=== PATIENT | female | born 1935 | race Caucasian/White ===

== ENCOUNTER 2017-05-06 12:10 | Emergency (ER) | payer MEDICARE, OTHER, SELFPAY ==
[2017-05-06 12:11] VITALS: BP 180/76; PULSE 65; RESP 18; TEMP 36.6; O2SAT 97; BMI 25.7
--- NOTE | 2017-05-06 12:22 | VDLE_ITS ---
Reason For Study: LEG PAIN RIGHT LEFT CFV is compressible, spontaneous, phasic, GSV is normal. competent and demonstrates normal CFV is compressible, spontaneous, phasic, augmentation. competent, and demonstrates normal Procedure augmentation. Exam performed portable in ED. FV is compressible, spontaneous, phasic, VDU ordered bassam - pt refused asymptomatic competent and demonstrates normal leg. augmentation. A preliminary report was called and/or faxed POP V is compressible, spontaneous, phasic, to Dr. Arango. competent and demonstrates normal augmentation. T/P Trunk is compressible. PTV is compressible. LT PerV is compressible. Interpretation Summary There is no evidence of left lower extremity deep vein thrombosis. Left greater saphenous vein appears patent and compressible segmentally. Normal flow patterns right common femoral vein. Ordering Physician: Adalid Arango Referring Physician: Chris Fournier Performed By: Deepa Moncada RVT
--- NOTE | 2017-05-06 12:23 | ED.VISSUMM ---
- ER Visit Summary Date of Service: 05/06/17 Chief Complaint: [] Left medial leg pain resolved History of Present Illness: The patient is a 81 F [], history of heart disease on Plavix history of superficial thrombophlebitis involving her left lower leg she woke this morning with the usual health completely stable and normal then she began having a pain to her left lower leg she called her daughter the daughter came over by 10 the daughter got to the house the symptoms are totally resolved the patient was completely back to her baseline, the daughter then called the doctor's office who told her to go to the urgent care, she went to the urgent care, and then she was directed come to the emergency department for possible duplex scan, the patient's symptoms are totally resolved she points to the left medial calf area of some very mild discomfort that is resolved this area does have some very prominent superficial veins there is no cores is no swelling there is no warmth she has no other complaints with the patient did not wish to come to the hospital except based on the instructions of her physicians Physical Examination: [] Neck chest exam unremarkable the abdomen soft nontender her lower extremity exam is really unremarkable she has prominent lower extremity veins there is no cords are palpable the calf is very soft she is having absolutely no pain she has full range of motion of her hip her knee or ankle her foot there is a palpable faint pulse dorsalis pedis her foot is well-perfused and pink cap refill is about 2 seconds she able to stand and walk to her baseline she has [place] no complaints right now Test Results: [] Emergency Department Course and Treatment: [] Given all the above the family is concerned about a superficial thrombophlebitis, she has no history of DVT PE her health has been very stable she lives alone at home given all the above duplex scan is ordered Scan bilateral was ordered, the patient refused the right scan, the left duplex scan shows no DVT per staff report or superficial abnormalities either All the above patient her daughter at this time a couple discharge home to follow-up with family doctor continue to walk warm compress and return for change in symptoms Treatment Plan: [] Disposition: [] Impression: [] Left medial calf pain etiology unclear resolved This note was generated with [employer] software. It may contain incorrect words, spelling, and punctuation that were not noted in review of the chart prior to signing ED Disposition - Plan for ED Patient: Chief Complaint: Lower Extremity Injury Referrals: Chris Fournier DO [Primary Care Provider] -
--- NOTE | 2017-05-06 12:52 | ED.DEP ---
ED Disposition - Plan for ED Patient: Chief Complaint: Lower Extremity Injury Instructions: ED Contusion Lower Ext Referrals: Chris Fournier DO [Primary Care Provider] -
[2017-05-06 13:20] VITALS: PULSE 62; RESP 16
== END 2017-05-06 13:21 | disposition home or self-care (01) ==
LOC: ED 12:26
PROVIDERS: Emergency Provider Emergency Medicine; Family Provider Student in an Organized Health Care Education/Training Program; PCP Student in an Organized Health Care Education/Training Program
DX: M79.662 Pain in left lower leg (principal); I25.10 Atherosclerotic heart disease of native coronary artery without angina pectoris; I10 Essential (primary) hypertension; Z86.72 Personal history of thrombophlebitis; Z79.01 Long term (current) use of anticoagulants; Z79.899 Other long term (current) drug therapy
CPT/HCPCS: 93970; 93971; 99282

== ENCOUNTER 2018-03-20 15:33 | Inpatient (IN) | payer MEDICARE, OTHER, SELFPAY ==
[2018-03-20] VITALS (29 sets, daily range): BP systolic 132–192; BP diastolic 64–134; PULSE 71–88; RESP 13–26; TEMP 36.4–36.7; O2SAT 94–100; BMI 26.7; BMI 25.8; BMI 25.7
--- NOTE | 2018-03-20 15:47 | CT_ITS ---
STUDY: CTA CHEST REASON FOR EXAM: Female, 82 years old. Chest pain RADIATION DOSAGE (If Supplied By Facility): CTDIvol = ( 14.32 ) mGy, DLP = ( 613.57 ) mGycm TECHNIQUE: The examination was performed with the intravenous administration of 75 ml of Isovue 370 contrast material. Post-processing of the angiographic images was performed, with multiplanar reformation and 3D reconstruction. Individualized dose optimization techniques were used for this CT. COMPARISON: None. FINDINGS: Normal enhancement of the main pulmonary artery and right and left pulmonary arteries. Normal enhancement of the bilateral peripheral pulmonary arteries. There is no demonstrated pulmonary embolism. There are calcified plaques of the aortic arch. There is no demonstrated aortic dissection. There is mild cardiomegaly. There is no pericardial effusion. Coronary arterial calcifications are present. There are several mediastinal nodes, the largest located in the precarinal region measuring 9 mm in short axis. Normal hilar regions. Normal visualized trachea and bronchi. The lungs are well expanded. There are diffuse fibrotic changes of the lungs. There are mild emphysematous changes of the lower lobes. Normal pleura. There are status post surgical changes of the left breast. Several dense calcifications are noted in the right breast. There are degenerative changes of thoracic spine. There is no evidence of osseous metastatic disease. There is a small hiatal hernia. CT/CTA Chest W/WO Contrast IMPRESSION: Normal CTA chest examination, without a demonstrated pulmonary embolism or arterial dissection. Mild cardiomegaly. Coronary arterial calcic lesions are present. There are diffuse fibrotic changes of the lungs. There are mild emphysematous changes of the lower lobes. Status post surgical changes of the left breast. There is a small hiatal hernia. Electronically Signed: Ovidio Barnes MD at 17:23 EST , Service support ,
--- NOTE | 2018-03-20 15:48 | ED.VISSUMM ---
- ER Visit Summary Date of Service: 03/20/18 Chief Complaint: Chest pain History of Present Illness: The patient is a 82 F who presents for 3 hours of severe midsternal chest pain with radiation into the left arm and into the back. Patient has taken 4 nitro at home and 4 baby aspirin. She has had no relief in her pain. Pain is a 10 out of 10. Patient also has associated shortness of breath. Patient has history of chest pain but states it is never been this severe. She has history of coronary artery disease, diabetes, hypertension. She had an echocardiogram 1 month ago. She takes Plavix. Known history of left bundle branch block. Physical Examination: Vital signs: afebrile, hemodynamically stable, no hypoxia on room air General: well nourished, well developed, tearful and writhing around on the bed, appears uncomfortable Skin: warm, dry, no rash, no pallor HEENT: normocephalic and atraumatic; PERRL, EOMI, moist mucous membranes Cardiovascular: regular rate and rhythm without murmurs, 2+ pulses in the radial pulses, mild symmetric edema, symmetric, unable to palpate the DP pulses. Respiratory: No increased work of breathing, lungs are clear to auscultation bilaterally, no rales, rhonchi or wheezing Abdominal: Abdomen is soft, nontender with normoactive bowel sounds, no guarding or rebound, no pulsatile masses MSK: Moves all extremities, no deformities, normal strength Neuro: Awake and alert, oriented ?4. No facial droop, sensation and motor function intact and symmetric Test Results: Abnormal Lab Results 03/20/18 03/20/18 03/20/18 15:40 15:40 15:40 WBC 6.7 RBC 4.48 Hgb 13.7 Hct 40.0 MCV 89.3 MCH 30.6 MCHC 34.3 RDW 13.3 RDW Differential 43.3 Plt Count 289 MPV 9.2 Immature Gran % (Auto) 0.100 Neut % (Auto) 28.8 L Lymph % (Auto) 61.8 H Orange % (Auto) 7.2 Eos % (Auto) 1.8 Baso % (Auto) 0.3 Absolute Neuts (auto) 1.9 L Absolute Lymphs (auto) 4.14 Total Counted Not Reportable PT 13.6 INR 1.0 APTT 29.1 Sodium 138 Potassium 3.4 L Chloride 104 Carbon Dioxide 22.0 Anion Gap 12 BUN 10 Creatinine 0.72 Estim Creat Clear Calc 35.26 Est GFR (MDRD) Af Amer 99 Est GFR (MDRD) Non-Af 82 BUN/Creatinine Ratio 13.8 Glucose 151 H Calcium 9.2 Troponin I 0.257 H Clinical Impression(s) from Imaging Studies Chest CTA 03/20/18 15:47 IMPRESSION: Normal CTA chest examination, without a demonstrated pulmonary embolism or arterial dissection. Mild cardiomegaly. Coronary arterial calcic lesions are present. There are diffuse fibrotic changes of the lungs. There are mild emphysematous changes of the lower lobes. Status post surgical changes of the left breast. There is a small hiatal hernia. Electronically Signed: Ovidio Barnes MD at 17:23 EST , Service support , Chest X-Ray 03/20/18 16:00 IMPRESSION: There is a fine interstitial fibrotic pattern of the lungs. Surgical clips are seen in the left axilla. No acute cardiopulmonary disease process is seen. Chest findings are stable in the interval. Electronically Signed: Ovidio Barnes MD at 16:30 EST , Service support , Emergency Department Course and Treatment: Patient presents with severe substernal chest pain radiating into the left arm and back, unresponsive to nitroglycerin that she took prehospital. Patient had no response to nitroglycerin in the emergency department. Her presentation is concerning for possible dissection, and thus a CTA of the chest was obtained. It showed no dissection or aneurysm. EKG showed left bundle branch block, no ischemic changes per sgarbossa criteria and similar to a prior EKG. CBC showed no leukocytosis. BMP unremarkable. Troponin significantly elevated at 0.257. Patient received morphine and had great improvement of his pain, now 3 out of 10. Given patient's chest pain, elevated troponin, patient was discussed with Dr. Diaz and will be admitted for further management of acute coronary syndrome. She was started on a nitroglycerin drip and treatment dose of Lovenox. Patient is already on Plavix. She was discussed with the hospitalist and admitted.. Medical care time of 35 minutes for initial evaluation and stabilization, coordination of care, frequent re-evaluations, interpretation of CT a chest and chest x-rays, EKGs, labs, discussion with purchasing/receiving, family and hospitalist, and documentation. Treatment Plan: [] Disposition: [] Impression: NSTEMI This note was generated with [employer] dictation software. It may contain incorrect words, spelling, and punctuation that were not noted in review of the chart prior to signing ED Disposition - Plan for ED Patient: Disposition: Acute Care Hospital [facility] Chief Complaint: Chest Pain
--- NOTE | 2018-03-20 15:51 | ED.DCSUM_ITS ---
- ER Visit Summary Date of Service: 03/20/18 Chief Complaint: Chest pain History of Present Illness: The patient is a 82 F who presents for 3 hours of severe midsternal chest pain with radiation into the left arm and into the back. Patient has taken 4 nitro at home and 4 baby aspirin. She has had no relief in her pain. Pain is a 10 out of 10. Patient also has associated shortness of breath. Patient has history of chest pain but states it is never been this severe. She has history of coronary artery disease, diabetes, hypertension. She had an echocardiogram 1 month ago. She takes Plavix. Known history of left bundle branch block. Physical Examination: Vital signs: afebrile, hemodynamically stable, no hypoxia on room air General: well nourished, well developed, tearful and writhing around on the bed, appears uncomfortable Skin: warm, dry, no rash, no pallor HEENT: normocephalic and atraumatic; PERRL, EOMI, moist mucous membranes Cardiovascular: regular rate and rhythm without murmurs, 2+ pulses in the radial pulses, mild symmetric edema, symmetric, unable to palpate the DP pulses. Respiratory: No increased work of breathing, lungs are clear to auscultation bilaterally, no rales, rhonchi or wheezing Abdominal: Abdomen is soft, nontender with normoactive bowel sounds, no guarding or rebound, no pulsatile masses MSK: Moves all extremities, no deformities, normal strength Neuro: Awake and alert, oriented ?4. No facial droop, sensation and motor function intact and symmetric Test Results: Abnormal Lab Results 03/20/18 03/20/18 03/20/18 15:40 15:40 15:40 WBC 6.7 RBC 4.48 Hgb 13.7 Hct 40.0 MCV 89.3 MCH 30.6 MCHC 34.3 RDW 13.3 RDW Differential 43.3 Plt Count 289 MPV 9.2 Immature Gran % (Auto) 0.100 Neut % (Auto) 28.8 L Lymph % (Auto) 61.8 H [place] % (Auto) 7.2 Eos % (Auto) 1.8 Baso % (Auto) 0.3 Absolute Neuts (auto) 1.9 L Absolute Lymphs (auto) 4.14 Total Counted Not Reportable PT 13.6 INR 1.0 APTT 29.1 Sodium 138 Potassium 3.4 L Chloride 104 Carbon Dioxide 22.0 Anion Gap 12 BUN 10 Creatinine 0.72 Estim Creat Clear Calc 35.26 Est GFR (MDRD) Af Amer 99 Est GFR (MDRD) Non-Af 82 BUN/Creatinine Ratio 13.8 Glucose 151 H Calcium 9.2 Troponin I 0.257 H Clinical Impression(s) from Imaging Studies Chest CTA 03/20/18 15:47 IMPRESSION: Normal CTA chest examination, without a demonstrated pulmonary embolism or arterial dissection. Mild cardiomegaly. Coronary arterial calcic lesions are present. There are diffuse fibrotic changes of the lungs. There are mild emphysematous changes of the lower lobes. Status post surgical changes of the left breast. There is a small hiatal hernia. Electronically Signed: Ovidio Barnes MD at 17:23 EST , Service support , Chest X-Ray 03/20/18 16:00 IMPRESSION: There is a fine interstitial fibrotic pattern of the lungs. Surgical clips are seen in the left axilla. No acute cardiopulmonary disease process is seen. Chest findings are stable in the interval. Electronically Signed: Ovidio Barnes MD at 16:30 EST , Service support , Emergency Department Course and Treatment: Patient presents with severe substernal chest pain radiating into the left arm and back, unresponsive to nitroglycerin that she took prehospital. Patient had no response to nitroglycerin in the emergency department. Her presentation is concerning for possible dissection, and thus a CTA of the chest was obtained. It showed no dissection or aneurysm. EKG showed left bundle branch block, no ischemic changes per sgarbossa criteria and similar to a prior EKG. CBC showed no leukocytosis. BMP unremarkable. Troponin significantly elevated at 0.257. Patient received morphine and had great improvement of his pain, now 3 out of 10. Given patient's chest pain, elevated troponin, patient was discussed with Dr. Diaz and will be admitted for further management of acute coronary syndrome. She was started on a nitroglycerin drip and treatment dose of Lovenox. Patient is already on Plavix. She was discussed with the hospitalist and admitted.. Medical care time of 35 minutes for initial evaluation and stabilization, coordination of care, frequent re-evaluations, interpretation of CT a chest and chest x-rays, EKGs, labs, discussion with health underwriter, family and hospitalist, and documentation. Treatment Plan: [] Disposition: [] Impression: NSTEMI This note was generated with [employer] dictation software. It may contain incorrect words, spelling, and punctuation that were not noted in review of the chart prior to signing ED Disposition - Plan for ED Patient: Disposition: Acute Care Hospital [facility] Chief Complaint: Chest Pain
[2018-03-20] MEDS: 0.9% Normal Saline 1,000 ML 250 ML IV (15:53)
[2018-03-20] MEDS: morphine 8 MG/ML Syringe IV (15:54)
[2018-03-20] MEDS: Ondansetron 4 MG/2 ML Vial IV (15:54)
--- NOTE | 2018-03-20 16:00 | RAD_ITS ---
STUDY: X-RAY CHEST REASON FOR EXAM: Female, 82 years old. Chest pain TECHNIQUE: Single AP portable view of the chest. COMPARISON: Prior study of 03/23/2015 FINDINGS: nurse monitoring leads are present. There is a fine interstitial fibrotic pattern of the lungs. There is no demonstrated pleural abnormality. Normal size heart. Normal mediastinum and olayinka. Normal visualized pulmonary arteries. Normal visualized aortic arch and descending thoracic aorta. Normal visualized thoracic spine. Normal visualized ribs, clavicles, and shoulders. Surgical clips are seen in the left axilla. RAD/Chest 1 View (Portable) IMPRESSION: There is a fine interstitial fibrotic pattern of the lungs. Surgical clips are seen in the left axilla. No acute cardiopulmonary disease process is seen. Chest findings are stable in the interval. Electronically Signed: Ovidio Barnes MD at 16:30 EST , Service support ,
[2018-03-20 16:02] LABS: Absolute Lymphocyte Count 4.14 X10^3/ul (0.83-4.51); Absolute Neutrophil Count 1.9 X10^3/uL (2.0-7.7); Basophil# 0.02 X10^3/uL; Basophil% 0.3 % (0-1); Eosinophil# 0.12 X10^3/uL; Eosinophils% 1.8 % (0-5); Hemoglobin 13.7 g/dl (12.0-15.0); Lymphocyte # 4.14 X10^3/ul (4.0); Lymphocyte % 61.8 % (19-41); Mean Corp Hgb Conc 34.3 g/gl (32-36); Mean Corpuscular Hgb 30.6 pg (27.0-32.0); Mean Corpuscular Volume 89.3 fL (81-99); Mean Platelet Vol. 9.2 fl (6.2-12.0); Monocyte# 0.48 X10^3/uL; Monocyte% 7.2 % (0-10); Neutrophil # 1.93 X10^3/uL (2.7-7.7); Neutrophil % 28.8 % (47-70); POSITIVE COUNT NO; POSITIVE DIFFERENTIAL NO; POSITIVE MORPHOLOGY NO; Platelet Count 289 K/mm3 (150-450); RBC Distribution Width CV 13.3 % (11.6-14.6); RBC Distribution Width SD 43.3 fl (35.1-43.9); Red Blood Count 4.48 M/mm3 (4.2-5.4); White Blood Count 6.7 K/mm3 (4.4-11.0)
[2018-03-20 16:15] LABS: Anion Gap 12 (5-15); BUN 10 mg/dL (7-18); BUN/Creat Ratio 13.8 RATIO (10-20); Calcium,Total 9.2 mg/dL (8.5-10.1); Chloride 104 mmol/L (98-107); Creatinine, Serum 0.72 mg/dL (0.55-1.02); EST Glomerular Filtration Rate 82 mL/min (>60); Est Glom Filt Rate - Afr Amer 99 mL/min (>60); Estimated Creatinine Clearance 35.26 ml/min; Glucose 151 mg/dL (74-106); Potassium 3.4 mmol/L (3.5-5.1); Sodium Level 138 mmol/L (136-145)
[2018-03-20 17:02] LABS: Prothrombin Time (Protime)PT. 13.6 SECONDS (11.7-14.9)
[2018-03-20 17:03] LABS: Partial Thromboplast Time 29.1 Seconds (24.1-36.2)
[2018-03-20] MEDS: Enoxaparin 80 MG/0.8 ML Syringe 70 MG SC (17:37)
--- NOTE | 2018-03-20 18:04 | HP.PCM_ITS ---
Problem List (1) Chest pain Status: Acute Qualifiers: Chest pain type: precordial pain Qualified Code(s): R07.2 - Precordial pain History of Present Illness Date of Admission: 03/20/18 Chief Complaint: Chest pain The patient is a 82 year old F who was seen in the emergency room at [facility] with chief complaint of precordial chest pain which started approximately 1:30 PM today while she was in a car. Patient states the discomfort feels like a pressure, radiates into her arms, unaccompanied by nausea or vomiting and she had no diaphoresis. At the time of my examination, feliciano loo states her chest pain is a 2 out of 10 with 10 being the worst pain. Patient has had multiple heart catheterizations in the past-the last one was probably 5 or more years ago, according to the patient and the patient's family who were in the room during my examination, she was never found to have occlusive coronary disease and has never had a stent placed. She does see Dr. Thomas on a regular basis, she has had an echocardiogram this year and according to her daughter, the patient's ejection fraction was improved over her other echocardiograms. I put in a brief call to Dr. Stout this afternoon and he states that to his recollection her echo had shown an ejection fraction of 30% in the past. He did not recall when her last echo was performed. Workup in the emergency room included an EKG which showed a normal sinus rhythm with a left bundle branch block pattern and occasional PVCs, CTA of the chest was performed to rule out pulmonary embolism-no evidence of pulmonary embolism was noted, patient did have diffuse fibrotic changes of the lung with mild emphysematous changes of the lower lobes. Labs were obtained, patient's CBC was unremarkable, patient's chemistry panel was remarkable for a potassium of 3.4, glucose was 151, and troponin was elevated at 0.257. The emergency room physician contacted Dr. Diaz who is on-call for cardiology, he requested the patient be placed on a nitro drip and he requested the patient be given Lovenox subcu. Patient will be admitted to ICU for non-STEMI, I talked to the patient briefly about undergoing a heart catheterization tomorrow and she was not opposed to it at the time of my conversation. Past Medical History Past Medical History (Chronic Problems): Chronic Problems Coronary artery disease (Chronic) Allergies amlodipine besylate [From Norvas] Allergy (Verified 05/06/17 12:13) Rash cephalexin monohydrate [From Keflex] Allergy (Verified 05/06/17 12:13) Hives streptomycin [Streptomycin] Allergy (Verified 05/06/17 12:13) Hives Sulfa (Sulfonamide Antibiotics) Allergy (Verified 05/06/17 12:13) Hives Home Medications: Ambulatory Orders Medication Instructions Recorded Brimonidine Tartrate/Timolol 1 drop EACH EYE BID 07/23/16 [Combigan 0.2%-0.5% Eye Drops] Clopidogrel Bisulfate [Plavix] 75 mg PO DAILY 07/23/16 Felodipine [Plendil] 10 mg PO DAILY 07/23/16 Hydrochlorothiazide [Hctz] 25 mg PO QODAY 07/23/16 Isosorbide Mononitrate [Isosorbide 60 mg PO DAILY 07/23/16 Mononitrate ER] Lisinopril [Prinivil] 10 mg PO DAILY 07/23/16 Metoprolol Succinate 25 mg PO DAILY 07/23/16 Nitroglycerin 0.4 mg SL Q5M PRN 07/23/16 Potassium Chloride 20 meq PO DAILY 07/23/16 Pravastatin [Pravachol] 40 mg PO QHS 07/23/16 Spironolactone [Aldactone] 25 mg PO QODAY 07/23/16 Surgical History: cataract, cholecystectomy, hysterectomy, - - Foot surgery, b reast lumpectomy Psychiatric History: No pertinent psych hx Lives: Alone Smoking Status: Never smoker Tobacco Use: Non-smoker Alcohol: None Drugs: None - *Family History Maternal History Items: Cancer - Breast cancer Paternal History Items: Heart Disease - heart failure, No pertinent history Review of Systems Constitutional: Denies: Anorexia, Chills, Fever, Night Sweats, Malaise, Weakness, Weight Change, Fatigue Eyes: Denies: Cataracts, Conjunctivae Inflammation, Double vision, Drainage HEENT: Denies: Difficulty Swallowing, Dysphasia, Ear Pain, Eye Pain, Hearing Changes, Nasal bleeding, Nasal Congestion, Post Nasal Drip Cardiovascular: Reports: Chest Pain, Chest Pressure. Denies: Claudication, Chest Tightness, Edema, Heaviness, Light Headedness, Orthopnea, Palpitations, Paroxysmal Noc. Dyspnea, Syncope Respiratory: Denies: Cough, Hemoptysis, Pleuritic Pain, Shortness of Breath, Shortness of breath at rest, Shortness of breath upon exertion, Sputum production, Wheezing Gastrointestinal: Denies: Abdominal Pain, Constipation, Diarrhea, Hematemesis, Hematochezia, Nausea, Melena, Vomiting Genitourinary: Denies: Dysuria, Frequency, Hematuria, Hesitancy, Incontinence, Nocturia, Urgency Gynecological: Denies: Breast symptoms Musculoskeletal: Denies: Back Pain, Foot Pain, Hand Pain, Joint Pain, Joint stiffness, Joint swelling, Joint Tenderness, Leg Pain Skin: Denies: Dryness, Pruritis, Rash Neurological: Denies: Blurred vision, Double vision, Slurred speech, Difficulty swallowing, Focal weakness, Headaches, Incoordination, Numbness, Tingling, Tremor Psychiatric: Denies: Anxiety, Depression, Homicidal Ideations, Suicidal Ideatio ns Endocrine: Denies: Change in Body Habitus, Heat/ Cold Intolerance, Polydipsia, Polyuria Hematologic/ Lymphatic: Denies: Adenopathy, Anemia, Easy Bruising, Easy Bleeding, Petechiae, Purpura VTE Information - Inpt Only VTE Present on Admission: No VTE Mechan Device Prophylaxis: None VTE Pharm Prophylaxis ordered?: No Reason prophylaxis not ordered:: Medical Contraindication - Patient currently was given full dose Lovenox x1 dose Patient Problems: Active and Suspected Problems Chest pain (Acute) - Physical Exam General: Alert, Oriented x3, Cooperative, No apparent distress, Well developed, Well nourished HEENT: Atraumatic, PERRLA, EOMI, Normocephalic Oral: Moist Mucosa Neck: Supple, No JVD, Negative Carotid Bruits, No Nuchal Rigidity, Trachea Midline, Thyroid Normal Size and Texture Lungs: Clear to auscultation, Normal air movement, No rhonchi, No wheeze, No rales Cardiovascular: Regular rate, Regular Rhythm, Normal S1, Normal S2, No murmurs, No Ectopic Activity, PMI Normal, No rub noted, No Gallop Abdomen: Bowel Sounds Present, Soft, Non Tender, Non-Distended, No hernias noted Extremities: No clubbing, No cyanosis, No edema, Capillary Refill Less than 3 Seconds Skin: No rashes, No breakdown Musculoskeletal: No Tenderness to Palpation of Joints or Extremities Neurological: Cranial nerves II-XII grossly intact, Neuro grossly intact, Sensory exam intact to light touch and pain, Coordination normal Psych/Mental Status: Normal Affect, Appropriate, Alert and oriented to time, place, person, mood and affect Vital Signs Temp Pulse Resp BP Pulse Ox 98.1 F 77 19 H 166/102 H 95 03/20/18 15:34 03/20/18 17:37 03/20/18 17:00 03/20/18 17:37 03/20/18 17:00 Oxygen Flow Rate (L/min) 2 Oxygen Delivery Method Nasal Cannula Weight: 68.5 kg Body Mass Index (BMI) 26.7 Finger Stick Blood Glucose 96 Intake and Output for Last 24 Hours 03/18/18 03/19/18 03/20/18 23:59 23:59 23:59 Output Total 400 / 400 Balance -400 / -400 Laboratory Tests Past 24 Hrs 03/20/18 03/20/18 03/20/18 15:40 15:40 15:40 WBC 6.7 RBC 4.48 Hgb 13.7 Hct 40.0 MCV 89.3 MCH 30.6 MCHC 34.3 RDW 13.3 RDW Differential 43.3 Plt Count 289 MPV 9.2 Immature Gran % (Auto) 0.100 Neut % (Auto) 28.8 L Lymph % (Auto) 61.8 H [place] % (Auto) 7.2 Eos % (Auto) 1.8 Baso % (Auto) 0.3 Absolute Neuts (auto) 1.9 L Absolute Lymphs (auto) 4.14 Total Counted Not Reportable PT 13.6 INR 1.0 APTT 29.1 Sodium 138 Potassium 3.4 L Chloride 104 Carbon Dioxide 22.0 Anion Gap 12 BUN 10 Creatinine 0.72 Estim Creat Clear Calc 35.26 Est GFR (MDRD) Af Amer 99 Est GFR (MDRD) Non-Af 82 BUN/Creatinine Ratio 13.8 Glucose 151 H Calcium 9.2 Troponin I 0.257 H Assessment/Plan All Active Problems Chest pain (Acute) #1 tho-[id number]-nkmirac will be admitted to ICU, she will be maintained on a nitroglycerin drip, cardiac enzymes will be cycled, the plan is for the patient to have a cardiac catheterization tomorrow. Patient was given 1 dose of Lovenox in the emergency room, I will not repeat the dose tomorrow morning due to her heart catheterization. Patient is already on Plavix and aspirin on a regular basis. I have requested a copy of her last echocardiogram from Dr. Thomas's office be obtained tomorrow. 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 Thomas's office to get a copy of her last echocardiogram which she believes was done earlier this year. #4 hyperlipidemia-patient is currently on a statin #5 pulmonary fibrosis-as noted on her CTA today Code Visit Inpatient E&M: 22022 Init Hosp L3
[2018-03-20] MEDS: Clopidogrel Bisulfate 75 MG Tablet PO (20:44)
[2018-03-20] MEDS: Metoprolol(XL)Succ 25 MG Tablet PO (20:45)
[2018-03-20] MEDS: Lisinopril 20 MG Tablet PO (20:45)
[2018-03-20] MEDS: Timolol 0.5% 5ML OPTH.BTL 1 DRP EACH EYE (23:17)
[2018-03-20] MEDS: Pravastatin 40 MG Tablet PO (23:17)
[2018-03-20] MEDS: BRIMONIDINE 0.2% 5ML BOTTLE 1 DRP EACH EYE (23:18)
[2018-03-21] VITALS (35 sets, daily range): BP systolic 75–152; BP diastolic 40–89; PULSE 56–82; RESP 11–24; TEMP 36.4–37.3; O2SAT 92–99
[2018-03-21 05:35] LABS: Color, Urine Yellow (Yellow); Glucose, Dipstick Normal (Normal); Ketone-Dipstick 5 mg/dl (Negative); Leukocyte Esterase-Dipstick 500 /ul (Negative); Nitrite-Dipstick Negative (Negative); Occult Blood-Urine 25 /ul (Negative); Protein-Dipstick 30 mg/dl (Negative); Specific Gravity, Urine 1.015 (1.002-1.030); Urine Bilirubin Dipstick Negative (Negative); Urine Clarity Cloudy (Clear); Urine Urobilinogen Normal (Normal)
[2018-03-21 05:36] LABS: Absolute Lymphocyte Count 3.14 X10^3/ul (0.83-4.51); Absolute Neutrophil Count 2.3 X10^3/uL (2.0-7.7); Basophil# 0.02 X10^3/uL; Basophil% 0.3 % (0-1); Eosinophils% 1.6 % (0-5); Hematocrit 36.7 % (37-47); Hemoglobin 12.5 g/dl (12.0-15.0); Lymphocyte # 3.14 X10^3/ul (4.0); Lymphocyte % 51.6 % (19-41); Mean Corp Hgb Conc 34.1 g/gl (32-36); Mean Corpuscular Hgb 31.4 pg (27.0-32.0); Mean Corpuscular Volume 92.2 fL (81-99); Mean Platelet Vol. 9.5 fl (6.2-12.0); Monocyte# 0.52 X10^3/uL; Monocyte% 8.6 % (0-10); Neutrophil # 2.29 X10^3/uL (2.7-7.7); Neutrophil % 37.7 % (47-70); POSITIVE COUNT NO; POSITIVE DIFFERENTIAL NO; POSITIVE MORPHOLOGY NO; Platelet Count 263 K/mm3 (150-450); RBC Distribution Width CV 13.3 % (11.6-14.6); Red Blood Count 3.98 M/mm3 (4.2-5.4); White Blood Count 6.1 K/mm3 (4.4-11.0)
[2018-03-21 05:42] LABS: International Normalized Ratio 1.1
[2018-03-21 05:43] LABS: Partial Thromboplast Time 27.6 Seconds (24.1-36.2)
[2018-03-21 05:44] LABS: Bacteria 1+ /hpf (None Seen); Mucous, Urine RARE /hpf (<or=2+); Red Blood Cells-Urine 0-5 SEEN /hpf (0-5); Squamous Epithelial Cells - UA 0-5 SEEN /hpf (5-10); White Blood Cells 50-100 SEEN /hpf (0-5)
[2018-03-21 05:48] LABS: Anion Gap 7 (5-15); BUN 9 mg/dL (7-18); BUN/Creat Ratio 10.2 RATIO (10-20); Calcium,Total 8.3 mg/dL (8.5-10.1); Chloride 105 mmol/L (98-107); Creatinine, Serum 0.88 mg/dL (0.55-1.02); EST Glomerular Filtration Rate 65 mL/min (>60); Est Glom Filt Rate - Afr Amer 79 mL/min (>60); Estimated Creatinine Clearance 40.07 ml/min; Glucose 154 mg/dL (74-106); Potassium 4.3 mmol/L (3.5-5.1); Sodium Level 139 mmol/L (136-145)
[2018-03-21] MEDS: Metoprolol(XL)Succ 25 MG Tablet PO (06:38)
[2018-03-21] MEDS: Clopidogrel Bisulfate 75 MG Tablet PO (06:38)
[2018-03-21] MEDS: Lisinopril 20 MG Tablet PO (06:38)
--- NOTE | 2018-03-21 09:52 | ECHOCS_ITS ---
Reason For Study: CP Procedure This was a 2D Doppler, Color Flow transthoracic echocardiogram. Technically difficult study, echo done post cath 03/21/2018. Exam performed portable in patient room. Left Ventricle Normal size and thickness. The estimated ejection fraction is 10-15 %. Stage 1 diastolic dysfunction. Mid-Anterior : Akinetic. Mid-Posterior: Akinetic. Anterior [place] : Akinetic. Right Ventricle Normal size and thickness. Normal systolic function. Atria Normal left atrium. Normal right atrium. Normal atrial septum. Mitral Valve The mitral valve is structurally normal. No prolapse or stenosis seen. Trivial mitral valve insufficiency. Tricuspid Valve Normal tricuspid valve. Trivial tricuspid valve insufficiency. Right ventricular systolic pressure estimated to be 36 mmHg. Aortic Valve Trisinus/trileaflet aortic valve. Pulmonic Valve The pulmonic valve is not well visualized. Great Vessels Normal aortic root. Normal arch. Normal inferior vena cava. Inferior vena cava collapse with sniff. Pericardium/Pleural No pericardial effusion. Medication Diluted definity 7ml given slow IV push to enhance endocardial definition. MMode/2D Measurements & Calculations LVIDd: 4.1 cm IVSd: 0.86 cm Ao root diam: 2.8 cm LVIDs: 2.7 cm LVPWd: 0.74 cm RVDd: 3.4 cm FS: 35.8 % LAV(MOD-bp): 58.2 ml LVAd ap4: 26.3 cm2 SV(MOD-sp4): 29.1 ml LAV(MOD-bp) Indexed: 34.5 ml/m2 EDV(MOD-sp4): 74.0 ml LAV(MOD-sp2): 66.2 ml EDV(sp4-el): 74.5 ml LAV(MOD-sp4): 52.5 ml LVAs ap4: 19.3 cm2 ESV(MOD-sp4): 44.9 ml ESV(sp4-el): 46.2 ml EF(MOD-sp4): 39.3 % EF(sp4-el): 37.9 % SV(sp4-el): 28.3 ml LA A4 area: 19.2 cm2 RA A4 area: 8.8 cm2 Time Measurements MV dec time: 0.26 sec Doppler Measurements & Calculations MV E max garcia: 65.3 cm/sec Med Peak E' Garcia: 3.7 cm/sec MV V2 max: 131.0 cm/sec MV A max garcia: 119.9 cm/sec E/E' med: 17.7 MV max P.9 mmHg MV E/A: 0.54 MV V2 mean: 65.8 cm/sec MV mean P.1 mmHg MV V2 VTI: 28.8 cm MV P1/2t max garcia: 74.2 cm/sec Ao V2 max: 132.9 cm/sec LV V1 max: 112.2 cm/sec MV P1/2t: 112.9 msec Ao max P.1 mmHg LV V1 max P.0 mmHg Ao V2 mean: 81.3 cm/sec LV V1 mean P.2 mmHg MV dec slope: 192.4 cm/sec2 Ao mean P.1 mmHg LV V1 mean: 68.8 cm/sec MVA(P1/2t): 1.9 cm2 Ao V2 VTI: 23.4 cm LV V1 VTI: 22.2 cm PA V2 max: 105.9 cm/sec TR max garcia: 282.7 cm/sec TR max P.0 mmHg Interpretation Summary The estimated ejection fraction is 10-15 %. Stage 1 diastolic dysfunction. Trivial mitral valve insufficiency. Trivial tricuspid valve insufficiency. Right ventricular systolic pressure estimated to be 36 mmHg. LV function c/w Takotstubos cardiomyopathy. Ordering Physician: Marcus Diaz Referring Physician: Chris Thrasher Performed By: Jesus Rodríguez RCS
--- NOTE | 2018-03-21 09:56 | PCM.PN.HOSP ---
Patient Problems: Active and Suspected Problems Chest pain (Acute) Subjective: Feels better, chest pain is resolved Vitals/I&O's: Vital Signs Temp Pulse Resp BP Pulse Ox 98.2 F 77 24 H 146/67 H 99 03/21/18 04:00 03/21/18 08:00 03/21/18 08:00 03/21/18 08:00 03/21/18 08:00 Oxygen Flow Rate (L/min) 2 Oxygen Delivery Method Nasal Cannula Weight: 145 lb 8.081 oz Body Mass Index (BMI) 25.7 Finger Stick Blood Glucose 96 Intake and Output for Last 24 Hours 03/19/18 03/20/18 03/21/18 23:59 23:59 23:59 Intake Total 362 / 362 Output Total 400 / 400 500 / 500 Balance -400 / -400 -138 / -138 General: Alert, Oriented x3, Cooperative, No apparent distress HEENT: Atraumatic, PERRLA, EOMI, Normocephalic Oral: Moist Mucosa Neck: Supple, No JVD Lungs: Clear to auscultation, Normal air movement, No rhonchi, No wheeze, No rales Cardiovascular: Regular rate, Regular Rhythm, Normal S1, Normal S2, No murmurs Abdomen: Soft, Non Tender, Non-Distended, No Hepato-splenomegaly Extremities: No edema, Capillary Refill Less than 3 Seconds Skin: No rashes, No breakdown Neurological: Neuro grossly intact, Sensory exam intact to light touch and pain Psych/Mental Status: Normal Affect, Appropriate Laboratory Results 03/20/18 15:40: WBC 6.7, RBC 4.48, Hgb 13.7, Hct 40.0, MCV 89.3, MCH 30.6, MCHC 34.3, RDW 13.3, RDW Differential 43.3, Plt Count 289, MPV 9.2, Immature Gran % (Auto) 0.100, Neut % (Auto) 28.8 L, Lymph % (Auto) 61.8 H, [place] % (Auto) 7.2, Eos % (Auto) 1.8, Baso % (Auto) 0.3, Absolute Neuts (auto) 1.9 L, Absolute Lymphs (auto) 4.14, Total Counted Not Reportable 03/20/18 15:40: PT 13.6, INR 1.0, APTT 29.1 12/23/18 15:40: Sodium 138, Potassium 3.4 L, Chloride 104, Carbon Dioxide 22.0, Anion Gap 12, BUN 10, Creatinine 0.72, Estim Creat Clear Calc 35.26, Est GFR (MDRD) Af Amer 99, Est GFR (MDRD) Non-Af 82, BUN/Creatinine Ratio 13.8, Glucose 151 H, Calcium 9.2, Troponin I 0.257 H 03/20/18 20:00: Troponin I 3.930 H* 03/20/18 22:35: Troponin I 4.000 H* 03/21/18 01:35: Troponin I 3.750 H* 03/21/18 05:20: Sodium 139, Potassium 4.3, Chloride 105, Carbon Dioxide 27.0, Anion Gap 7, BUN 9, Creatinine 0.88, Estim Creat Clear Calc 40.07, Est GFR (MDRD) Af Amer 79, Est GFR (MDRD) Non-Af 65, BUN/Creatinine Ratio 10.2, Glucose 154 H, Calcium 8.3 L 03/21/18 05:20: WBC 6.1, RBC 3.98 L, Hgb 12.5, Hct 36.7 L, MCV 92.2, MCH 31.4, MCHC 34.1, RDW 13.3, RDW Differential 44.0 H, Plt Count 263, MPV 9.5, Immature Gran % (Auto) 0.200, Neut % (Auto) 37.7 L, Lymph % (Auto) 51.6 H, [place] % (Auto) 8.6, Eos % (Auto) 1.6, Baso % (Auto) 0.3, Absolute Neuts (auto) 2.3, Absolute Lymphs (auto) 3.14, Total Counted Not Reportable 03/21/18 05:20: PT 14.0, INR 1.1, APTT 27.6 03/21/18 05:25: Urine Color Yellow, Urine Clarity Cloudy, Urine pH 6.0, Ur Specific [place] 1.015, Urine Protein 30 H, Urine Glucose (UA) Normal, Urine Ketones 5 H, Urine Occult Blood 25 H, Urine Nitrite Negative, Urine Bilirubin Negative, Urine Urobilinogen Normal, Ur Leukocyte Esterase 500 H, Urine RBC 0-5 SEEN, Urine WBC 50-100 SEEN, Ur Squamous Epith Cells 0-5 SEEN, Urine Bacteria 1+, Urine Mucus RARE Current Medications Acetaminophen (Tylenol) 650 mg PO Q6H PRN PRN PRN Reason: Mild Pain (1-3)/Temp > 100.7 F Brimonidine Tartrate (Brimonidine 0.2% 5ml Bottle) 1 drop EACH EYE BID [facility] Last Admin: 03/20/18 23:18 Dose: 1 drop Carvedilol (Coreg) 6.25 mg PO BID [facility] Heparin Sodium (Beef Lung) (Heparin 500 Unit/5 Ml (100/Ml)) 500 unit IV UD PRN PRN Reason: HEPARIN FLUSH Hydrochlorothiazide (Hctz) 25 mg PO QODAY [facility] Sodium Chloride () 250 mls @ 15 mls/hr IV .[id number] PRN PRN Reason: SALINE FLUSH Nitroglycerin/Dextrose 25 mg/ (N/A) 250 mls @ 3 mls/hr IV .[id number] [facility] Last Admin: 03/21/18 07:24 Dose: Not Given Labetalol HCl (Trandate) 5 mg IV X1 PRN PRN Reason: SBP > 160 prior to sheath pull Stop: 03/23/18 09:49 Losartan Potassium (Cozaar) 50 mg PO BID [facility] Morphine Sulfate () 2 - 4 mg IV Q4H PRN PRN PRN Reason: MOD-SEVERE PAIN (4-10/10) Non-Formulary Medication (Felodipine [Plendil]) 10 mg PO DAILY [facility] Potassium Chloride (K-Dur) 20 meq PO DAILY [facility] Pravastatin Sodium (Pravachol) 40 mg PO QHS [facility] Last Admin: 03/20/18 23:17 Dose: 40 mg Sodium Chloride () 5 - 15 ml IV UD PRN PRN Reason: SALINE FLUSH Spironolactone (Aldactone) 25 mg PO QODAY [facility] Timolol Maleate (Timoptic) 1 drop EACH EYE BID [facility] Last Admin: 03/20/18 23:17 Dose: 1 drop Medical Necessity - Tobacco Use Smoking Status: Never smoker Tobacco Use: Non-smoker Assessment/Plan All Active Problems Chest pain (Acute) 1. NSTEMI/Cardiomyopathy/HTN/HLD - Cath was negative, however still hypertensive - Possible takotsubo, echo pending - Coreg, Cozaar added by cardiology, appreciate recs - c/w HCTZ, aldactone - C/w statin 2. Glaucoma - stable - c/w home medications 3. Pulmonary Fibrosis - not SOB - Will need to correlate CTA finding of pulm fibrosis with PFT as an outpatient DVT: SCDs Code Visit Inpatient E&M: 73119 Subs Hosp L2
--- NOTE | 2018-03-21 09:59 | CL.D_ITS ---
Patient Name: AUSTEN MOTLEY Study Date: 03/21/2018 Performing: Marcus Diaz MD Ht: 62.99 inches 160 cm : 1935 Wt: 145.51 lbs 66 kg Age: 82 Gender: female BSA: 1.69 PROCEDURE(S) PERFORMED XB86-OER/COR/LV CLINICAL PROFILE AND INDICATIONS Indications: ACS <= 24 hrs, New Onset Angina <= 2 months, Worsening Angina, Stable Known CAD, Car diomyopathy, LV Dysfunction Heart Failure: NYHA Class: 2, Newly Diagnosed: No, Heart Failure Type: Systolic Stress/Imaging Stress/Image Study Performed: No Angina Classification Anginal Classification w/in 2 Weeks: CCS IV CAD Presentations: Unstable angina. Non-STEMI. Symptom onset Date/Time: 03/20/2018 Time Not Avail able Comorbidities/Risk Factors: Hypertension Dyslipidemia Prior CHF CONCLUSIONS Non obstructive coronary arteries Cardiomyopathy: Takotsubo LVEF: by LV gram 20 % Successful Mynx closure device. Echo to document LV Function. Repeat echo in 3 months after cardiac rehab. F/u with Dr Diaz or Dr Thomas. RECOMMENDATIONS Management as per referring Manager Furniture DESCRIPTION OF PROCEDURE The patient arrived to the procedure lab. The risks and benefits of the procedure as well as a full d escription of our services here and current unavailability of surgical backup were fully explained to the patient and/or their significant other prior to the catheterization. The Timeout was completed, verifying the correct patient and procedure. The patient's procedural site was prepped and draped in the usual fashion. Local anesthetic was given subcutaneously to right groin region with Lidocaine 2%. Using a modified Seldinger technique, arterial access was obtained via the right femoral artery, a 4 Fr sheath was inserted Left Coronary Artery selective angiography was performed in multiple views us ing a 4 Fr. JL5 catheter. Right Coronary Artery selective angiography was then performed in multiple views using a 4 Fr. 3DRC catheter. Left Ventriculography was performed in ACNNON projection using a 4 Fr . Pigtail catheter. LV to AO pullback pressures were then recorded.Contrast was injected through the sheath and the Right Iliac and Femoral artery were assessed for possible closure device.T he arterial sheath was pulled and a Mynx closure device was deployed for hemostasis CORONARY ANGIOGRAPHY DOMINANCE: Co- Dominant LEFT HEART ASSESSMENT Left Ventricular Ejection Fraction: by LV Gram 20 % Mid Anterior Hypokinesis - Severe. Inferior Mid Hypokinesis - Severe Depressed Left Ventricular systolic function LVEDP: 30 mmHg Consistent with Takotsubo cardiomyopathy. LEFT MAIN: Angiographically normal LEFT ANTERIOR DECENDING ARTERY: Angiographically normal CIRCUMFLEX ARTERY: Angiographically normal RIGHT CORONARY ARTERY: MID RCA: Mild luminal irregularities less than 30% COMPLICATIONS No Complications PROCEDURE MEDICATIONS Oxygen: 2 L/min via nasal cannula Baby Aspirin (81mg) 4 Tabs PO @ 03/21/2018 09:14:08 SUMMARY OF HEMODYNAMIC DATA Time AIR REST ECG 09:11:19 AO 147/86 (114) SA 09:33:38 LV 172/0, 30 09:40:30 LV 174/0, 30 09:40:36 LVp 173/-1, 30 09:40:49 AOp 175/75 (115) 09:40:54 Signed By Marcus Diaz MD On 03/21/2018 09:59:13 Marcus Diaz MD
--- NOTE | 2018-03-21 10:02 | PN_ITS ---
Patient Problems: Active and Suspected Problems Chest pain (Acute) Subjective: Feels better, chest pain is resolved Vitals/I&O's: Vital Signs Temp Pulse Resp BP Pulse Ox 98.2 F 77 24 H 146/67 H 99 03/21/18 04:00 03/21/18 08:00 03/21/18 08:00 03/21/18 08:00 03/21/18 08:00 Oxygen Flow Rate (L/min) 2 Oxygen Delivery Method Nasal Cannula Weight: 145 lb 8.081 oz Body Mass Index (BMI) 25.7 Finger Stick Blood Glucose 96 Intake and Output for Last 24 Hours 03/19/18 03/20/18 03/21/18 23:59 23:59 23:59 Intake Total 362 / 362 Output Total 400 / 400 500 / 500 Balance -400 / -400 -138 / -138 General: Alert, Oriented x3, Cooperative, No apparent distress HEENT: Atraumatic, PERRLA, EOMI, Normocephalic Oral: Moist Mucosa Neck: Supple, No JVD Lungs: Clear to auscultation, Normal air movement, No rhonchi, No wheeze, No rales Cardiovascular: Regular rate, Regular Rhythm, Normal S1, Normal S2, No murmurs Abdomen: Soft, Non Tender, Non-Distended, No Hepato-splenomegaly Extremities: No edema, Capillary Refill Less than 3 Seconds Skin: No rashes, No breakdown Neurological: Neuro grossly intact, Sensory exam intact to light touch and pain Psych/Mental Status: Normal Affect, Appropriate Laboratory Results 03/20/18 15:40: WBC 6.7, RBC 4.48, Hgb 13.7, Hct 40.0, MCV 89.3, MCH 30.6, MCHC 34.3, RDW 13.3, RDW Differential 43.3, Plt Count 289, MPV 9.2, Immature Gran % (Auto) 0.100, Neut % (Auto) 28.8 L, Lymph % (Auto) 61.8 H, Am[place] % (Auto) 7.2, Eos % (Auto) 1.8, Baso % (Auto) 0.3, Absolute Neuts (auto) 1.9 L, Absolute Lymphs (auto) 4.14, Total Counted Not Reportable 03/20/18 15:40: PT 13.6, INR 1.0, APTT 29.1 12/23/18 15:40: Sodium 138, Potassium 3.4 L, Chloride 104, Carbon Dioxide 22.0, Anion Gap 12, BUN 10, Creatinine 0.72, Estim Creat Clear Calc 35.26, Est GFR (MDRD) Af Amer 99, Est GFR (MDRD) Non-Af 82, BUN/Creatinine Ratio 13.8, Glucose 151 H, Calcium 9.2, Troponin I 0.257 H 03/20/18 20:00: Troponin I 3.930 H* 03/20/18 22:35: Troponin I 4.000 H* 03/21/18 01:35: Troponin I 3.750 H* 03/21/18 05:20: Sodium 139, Potassium 4.3, Chloride 105, Carbon Dioxide 27.0, Anion Gap 7, BUN 9, Creatinine 0.88, Estim Creat Clear Calc 40.07, Est GFR (MDRD) Af Amer 79, Est GFR (MDRD) Non-Af 65, BUN/Creatinine Ratio 10.2, Glucose 154 H, Calcium 8.3 L 03/21/18 05:20: WBC 6.1, RBC 3.98 L, Hgb 12.5, Hct 36.7 L, MCV 92.2, MCH 31.4, MCHC 34.1, RDW 13.3, RDW Differential 44.0 H, Plt Count 263, MPV 9.5, Immature Gran % (Auto) 0.200, Neut % (Auto) 37.7 L, Lymph % (Auto) 51.6 H, Amelia % (Auto) 8.6, Eos % (Auto) 1.6, Baso % (Auto) 0.3, Absolute Neuts (auto) 2.3, Absolute Lymphs (auto) 3.14, Total Counted Not Reportable 03/21/18 05:20: PT 14.0, INR 1.1, APTT 27.6 03/21/18 05:25: Urine Color Yellow, Urine Clarity Cloudy, Urine pH 6.0, Ur Specific [place] 1.015, Urine Protein 30 H, Urine Glucose (UA) Normal, Urine Ketones 5 H, Urine Occult Blood 25 H, Urine Nitrite Negative, Urine Bilirubin Negative, Urine Urobilinogen Normal, Ur Leukocyte Esterase 500 H, Urine RBC 0-5 SEEN, Urine WBC 50-100 SEEN, Ur Squamous Epith Cells 0-5 SEEN, Urine Bacteria 1+, Urine Mucus RARE Current Medications Acetaminophen (Tylenol) 650 mg PO Q6H PRN PRN PRN Reason: Mild Pain (1-3)/Temp > 100.7 F Brimonidine Tartrate (Brimonidine 0.2% 5ml Bottle) 1 drop EACH EYE BID [facility] Last Admin: 03/20/18 23:18 Dose: 1 drop Carvedilol (Coreg) 6.25 mg PO BID [facility] Heparin Sodium (Beef Lung) (Heparin 500 Unit/5 Ml (100/Ml)) 500 unit IV UD PRN PRN Reason: HEPARIN FLUSH Hydrochlorothiazide (Hctz) 25 mg PO QODAY [facility] Sodium Chloride () 250 mls @ 15 mls/hr IV .[id number] PRN PRN Reason: SALINE FLUSH Nitroglycerin/Dextrose 25 mg/ (N/A) 250 mls @ 3 mls/hr IV .[id number] [facility] Last Admin: 03/21/18 07:24 Dose: Not Given Labetalol HCl (Trandate) 5 mg IV X1 PRN PRN Reason: SBP > 160 prior to sheath pull Stop: 03/23/18 09:49 Losartan Potassium (Cozaar) 50 mg PO BID [facility] Morphine Sulfate () 2 - 4 mg IV Q4H PRN PRN PRN Reason: MOD-SEVERE PAIN (4-10/10) Non-Formulary Medication (Felodipine [Plendil]) 10 mg PO DAILY [facility] Potassium Chloride (K-Dur) 20 meq PO DAILY [facility] Pravastatin Sodium (Pravachol) 40 mg PO QHS [facility] Last Admin: 03/20/18 23:17 Dose: 40 mg Sodium Chloride () 5 - 15 ml IV UD PRN PRN Reason: SALINE FLUSH Spironolactone (Aldactone) 25 mg PO QODAY [facility] Timolol Maleate (Timoptic) 1 drop EACH EYE BID [facility] Last Admin: 03/20/18 23:17 Dose: 1 drop Medical Necessity - Tobacco Use Smoking Status: Never smoker Tobacco Use: Non-smoker Assessment/Plan All Active Problems Chest pain (Acute) 1. NSTEMI/Cardiomyopathy/HTN/HLD - Cath was negative, however still hypertensive - Possible takotsubo, echo pending - Coreg, Cozaar added by cardiology, appreciate recs - c/w HCTZ, aldactone - C/w statin 2. Glaucoma - stable - c/w home medications 3. Pulmonary Fibrosis - not SOB - Will need to correlate CTA finding of pulm fibrosis with PFT as an outpatient DVT: SCDs Code Visit Inpatient E&M: 93277 Subs Hosp L2
[2018-03-21] MEDS: Carvedilol 6.25 MG Tablet PO ×2 (11:12→22:03)
[2018-03-21] MEDS: Losartan Potassium 50 MG Tablet PO (11:12)
[2018-03-21] MEDS: Spironolactone 25 MG Tablet PO (11:12)
[2018-03-21] MEDS: hydroCHLOROthiazide 25 MG Tablet PO (11:13)
--- NOTE | 2018-03-21 12:56 | PCM.CONS.C ---
Problem List (1) LV dysfunction Status: Acute (2) Chest pain Status: Acute Qualifiers: Chest pain type: precordial pain Qualified Code(s): R07.2 - Precordial pain (3) Coronary artery disease Status: Chronic (4) Non-STEMI (non-ST elevated myocardial infarction) Status: Acute Reason for Consult Date of Consultation: 03/21/18 Reason for Consultation: Acute chest pain, hypertension, LV dysfunction, non-STEMI History of Present Illness: The patient is a 82 year old F nondiabetic, with hypertension, patient of Dr. Stout's, previous episodes of acute chest pain requiring catheterization. Reportedly the patient has had several caths in the past which have demonstrated nonobstructive coronary artery disease, last one being about 5 years ago. Patient appears to have these events around very stressful times. The last few days have been very stressful for the patient with Lila, anniversary of her 's passing, and recent departure of her son out of her house. The patient noted new onset severe chest pressure last evening, and sought medical attention at [facility] ER. In the ER her blood pressure was quite elevated she received nitroglycerin sublingual followed by nitroglycerin drip. Her baseline EKG had an old left bundle branch block with no acute changes. Her initial troponin was 0.257, and increased to 4.0 and is trending downwards. Patient became chest pain-free and was furred to us for diagnostic coronary catheterization. Patient underwent left heart catheterization this morning which showed nonobstructive coronary disease of her LAD and left circumflex as well as her right coronary artery. Her EF was around 10-15%, with classic Takostubos cardiomyopathy. Patient was treated medically. Patient is Toprol was discontinued and changed to Coreg, and her lisinopril was discontinued and changed to Cozaar. She was already on spironolactone, and hydrochlorothiazide. [] Past Medical History Allergies/Adverse Reactions: Allergies amlodipine besylate [From Norvasc] Allergy (Verified 05/06/17 12:13) Rash cephalexin monohydrate [From Keflex] Allergy (Verified 05/06/17 12:13) Hives streptomycin [Streptomycin] Allergy (Verified 05/06/17 12:13) Hives Sulfa (Sulfonamide Antibiotics) Allergy (Verified 05/06/17 12:13) Hives Home Medications: Ambulatory Orders Medication Instructions Recorded Brimonidine Tartrate/Timolol 1 drop EACH EYE BID 07/23/16 [Combigan 0.2%-0.5% Eye Drops] Clopidogrel Bisulfate [Plavix] 75 mg PO DAILY 07/23/16 Felodipine [Plendil] 10 mg PO DAILY 07/23/16 Hydrochlorothiazide [Hctz] 25 mg PO QODAY 07/23/16 Isosorbide Mononitrate [Isosorbide 60 mg PO DAILY 07/23/16 Mononitrate ER] Lisinopril [Prinivil] 10 mg PO DAILY 07/23/16 Metoprolol Succinate 25 mg PO DAILY 07/23/16 Nitroglycerin 0.4 mg SL Q5M PRN 07/23/16 Potassium Chloride 20 meq PO DAILY 07/23/16 Pravastatin [Pravachol] 40 mg PO QHS 07/23/16 Spironolactone [Aldactone] 25 mg PO QODAY 07/23/16 Past Medical History (Chronic Problems): Chronic Problems Coronary artery disease (Chronic) Surgical History: cataract, cholecystectomy, hysterectomy, - - Foot surgery, breast lumpectomy Psychiatric History: No pertinent psych hx - *Family History Maternal History Items: Cancer - Breast cancer Paternal History Items: Heart Disease - heart failure, No pertinent history Lives: Alone Smoking Status: Never smoker Tobacco Use: Non-smoker Alcohol: None Drugs: None Review of Systems - Review of Systems General: Denies: Fever, Night Sweats, Fatigue Cardiovascular: Reports: Chest Discomfort at Rest, Chest Pressure, Chest Tightness, Shortness of Breath, Shortness of Breath at Rest. Denies: Chest Discomfort, Orthopnea, PND, Peripheral Edema, Palpitations, Lightheadedness, Dizziness, Near Syncope, Syncope Respiratory: Denies: Cough, Sputum Production, Hemoptysis Gastrointestinal: Denies: Hematemesis, Hematochezia, Melena Genitourinary: Denies: Dysuria, Hematuria Skin: Denies: Rash Subjectve: Patient resting comfortably, no acute distress. Objective: Vital Signs Temp Pulse Resp BP Pulse Ox 98.3 F 82 18 133/89 H 93 03/21/18 12:51 03/21/18 12:51 03/21/18 12:51 03/21/18 12:51 03/21/18 12:51 Oxygen Flow Rate (L/min) 2 Oxygen Delivery Method Room Air Weight: 145 lb 8.081 oz Body Mass Index (BMI) 25.7 Finger Stick Blood Glucose 96 Intake and Output for Last 24 Hours 03/19/18 03/20/18 03/21/18 23:59 23:59 23:59 Intake Total 612 / 612 Output Total 400 / 400 500 / 500 Balance -400 / -400 112 / 112 General: Awake, Alert, Oriented x 3 HEENT: PERRL, EOMI, Sclera Non Icteric Neck: Supple, Good ROM, No Lymph Node Enlargement Lungs: Clear to auscultation Cardiovascular: Regular Rhythm, Normal S1, Normal S2, No Murmurs, No Rubs, No Gallops Vascular: No Carotid Bruits, Normal Femoral Pulses, Normal Radial Pulses, Normal Dorsalis Pedal Pulse, Normal Posterior Tibial Pulses Abdomen: Bowel Sounds Present, Soft, Non Tender, No HSM, No Organomegaly Extremities: No Cyanosis, No Clubbing, No edema Neurological: No Focal Motor or Sensory Deficit 03/20/18 15:40: WBC 6.7, RBC 4.48, Hgb 13.7, Hct 40.0, MCV 89.3, MCH 30.6, MCHC 34.3, RDW 13.3, RDW Differential 43.3, Plt Count 289, MPV 9.2, Immature Gran % (Auto) 0.100, Neut % (Auto) 28.8 L, Lymph % (Auto) 61.8 H, [place] % (Auto) 7.2, Eos % (Auto) 1.8, Baso % (Auto) 0.3, Absolute Neuts (auto) 1.9 L, Total Counted Not Reportable 03/20/18 15:40: PT 13.6, INR 1.0, APTT 29.1 03/20/18 15:40: Sodium 138, Potassium 3.4 L, Chloride 104, Carbon Dioxide 22.0, Anion Gap 12, BUN 10, Creatinine 0.72, Est GFR (MDRD) Af Amer 99, Est GFR (MDRD) Non-Af 82, BUN/Creatinine Ratio 13.8, Glucose 151 H, Calcium 9.2, Troponin I 0.257 H 03/20/18 20:00: Troponin I 3.930 H* 03/20/18 22:35: Troponin I 4.000 H* 03/21/18 01:35: Troponin I 3.750 H* 03/21/18 05:20: Sodium 139, Potassium 4.3, Chloride 105, Carbon Dioxide 27.0, Anion Gap 7, BUN 9, Creatinine 0.88, Est GFR (MDRD) Af Amer 79, Est GFR (MDRD) Non-Af 65, BUN/Creatinine Ratio 10.2, Glucose 154 H, Calcium 8.3 L 03/21/18 05:20: WBC 6.1, RBC 3.98 L, Hgb 12.5, Hct 36.7 L, MCV 92.2, MCH 31.4, MCHC 34.1, RDW 13.3, RDW Differential 44.0 H, Plt Count 263, MPV 9.5, Immature Gran % (Auto) 0.200, Neut % (Auto) 37.7 L, Lymph % (Auto) 51.6 H, [place] % (Auto) 8.6, Eos % (Auto) 1.6, Baso % (Auto) 0.3, Absolute Neuts (auto) 2.3, Total Counted Not Reportable 03/21/18 05:20: PT 14.0, INR 1.1, APTT 27.6 03/21/18 05:25: Urine Color Yellow, Urine Clarity Cloudy, Urine pH 6.0, Ur Specific [place] 1.015, Urine Protein 30 H, Urine Glucose (UA) Normal, Urine Ketones 5 H, Urine Occult Blood 25 H, Urine Nitrite Negative, Urine Bilirubin Negative, Urine Urobilinogen Normal, Ur Leukocyte Esterase 500 H, Urine RBC 0-5 SEEN, Urine WBC 50-100 SEEN Rhythm: EKG: ECHO: Severe LV dysfunction with classic Takostubos to myopathy contraction pattern. EF around 10-15%. Stress Test: Cardiac Cath as above: PCI: CT Surgery: Holter monitor: EPS: PPM: CXR: Chest CT Scan: Assessment/Plan 1. LV dysfunction: The patient had what appeared to be stress-induced cardiomyopathy consistent with Takostubos cardia myopathy. Urgent catheterization this morning for non-STEMI showed nonobstructive coronary artery disease. Would recommend that she continue baby aspirin and Plavix going forward given her non-STEMI, and minimal nonobstructive coronary disease. Would recommend discontinuation of atenolol and switching her to Coreg 6.25 mg p.o. twice daily, discontinuation of lisinopril and switching her to Cozaar 50 mg p.o. daily. She continue her hydrochlorothiazide and spironolactone. If her blood pressure still not well controlled I would recommend trying Imdur 30 mg p.o. daily for ongoing vaso-dilatation. Would recommend repeat echocardiogram in 1-2 months to determine if her LV function has improved. I advised the patient and her family that this may happen again given her previous incidences of cardiomyopathy, and may need to be aware of this prior to any stressful events, anniversaries, or holiday seasons which may cause her anxiety. If her LV function has not improved with medical therapy, cardiac rehab, she may require a prophylactic AICD. 2. Coronary artery disease: The patient has minimal nonobstructive coronary disease. Given her recent non-STEMI recommend baby aspirin and Plavix as well as aggressive LDL reduction. Lipids are pending. Continue Pravachol. 3. Thank you very much for the opportunity to participate in the cardiac care of your patient. Consultation time took place between 9:30 AM and 10:15 AM. Code Visit Inpatient E&M: [id number] Init Hosp L2
--- NOTE | 2018-03-21 13:33 | CASEMGMT ---
RN CM Assessment. PCP: Dr. Fournier Pharmacy: [facility] Intro role of CM to patient. Pt states she is independent, does not use DME. Plan is for her to return home on dc and daughter can assist with transportation. No needs identified. DC PLAN: Home.
[2018-03-21 13:35] LABS: Cholesterol 145 mg/dL (200); High Density Lipoprotein 42 mg/dL; Triglycerides 142 mg/dL; Very Low Density Lipoprotein 28 mg/dL (5-40)
[2018-03-21] MEDS: BRIMONIDINE 0.2% 5ML BOTTLE 1 DRP EACH EYE ×2 (14:26→22:06)
[2018-03-21] MEDS: Timolol 0.5% 5ML OPTH.BTL 1 DRP EACH EYE ×2 (14:27→22:06)
[2018-03-21] MEDS: Pravastatin 40 MG Tablet PO (22:05)
[2018-03-22 00:40] VITALS: PULSE 129
[2018-03-22 03:10] VITALS: PULSE 58
[2018-03-22 04:10] VITALS: BP 125/54; PULSE 64; RESP 16; TEMP 36.6; O2SAT 97
[2018-03-22 06:54] VITALS: O2SAT 88
[2018-03-22 07:05] VITALS: PULSE 64
--- NOTE | 2018-03-22 09:24 | DCINST_ITS ---
- Discharge Diagnoses Current Active Problems: Current Active and Chronic Problems Chest pain (Acute) LV dysfunction (Acute) Non-STEMI (non-ST elevated myocardial infarction) (Acute) You will use the following diet at home:: Cardiac Your food should be the consistency of: Regular Your liquids should be the consistency of: Regular/Thin Discharge Activity: Return to Normal Activity Call your doctor if you observe: Shortness of breath, Dizziness, Fainting spells, Swelling in the ankles, Chest pain, Increased palpitations (irregular heartbeat) Allergies/Adverse Reactions: Allergies amlodipine besylate [From Norvasc] Allergy (Verified 05/06/17 12:13) Rash cephalexin monohydrate [From Keflex] Allergy (Verified 05/06/17 12:13) Hives streptomycin [Streptomycin] Allergy (Verified 05/06/17 12:13) Hives Sulfa (Sulfonamide Antibiotics) Allergy (Verified 05/06/17 12:13) Hives Medications to take at Discharge Brimonidine Tartrate/Timolol [Combigan 0.2%-0.5% Eye Drops] 1 drop EACH EYE BID 07/23/16 Clopidogrel Bisulfate [Plavix] 75 mg PO DAILY 07/23/16 Hydrochlorothiazide [Hctz] 25 mg PO QODAY 07/23/16 Nitroglycerin 0.4 mg SL Q5M PRN 07/23/16 Potassium Chloride 20 meq PO DAILY 07/23/16 Pravastatin [Pravachol] 40 mg PO QHS 07/23/16 Spironolactone [Aldactone] 25 mg PO QODAY 07/23/16 Carvedilol [Coreg (Beta Savage)] 6.25 mg PO BID #60 tablet 03/22/18 Losartan Potassium [Cozaar] 50 mg PO DAILY #30 tablet 03/22/18 The following prescriptions were given: Losartan Potassium [Cozaar] 50 mg PO DAILY #30 tablet Carvedilol [Coreg (Beta Savage)] 6.25 mg PO BID #60 tablet Primary Care Physician: Chris Fournier DO [Primary Care Provider] - Please follow up with your Primary Care Physician in: 3-5 days Test Results: Test results from this visit will be discussed in further detail at your follow- up appointment, if applicable. Please Follow Up With: Marcus Diaz MD When: In 3-4 weeks
--- NOTE | 2018-03-22 09:24 | PCM.DC.SUM ---
Discharge Date and Diagnosis - Problem List Patient Problems: Active and Suspected Problems Chest pain (Acute) LV dysfunction (Acute) Non-STEMI (non-ST elevated myocardial infarction) (Acute) Date of Admission: 03/20/18 Date of Discharge: 03/22/18 - Primary Discharge Diagnosis Active and Suspected Problems Chest pain (Acute) LV dysfunction (Acute) Non-STEMI (non-ST elevated myocardial infarction) (Acute) - Secondary Discharge Diagnosis Chronic Problems Coronary artery disease (Chronic) Hospital Course and Treatment Imaging Results: CTA Chest: IMPRESSION: Normal CTA chest examination, without a demonstrated pulmonary embolism or arterial dissection. Mild cardiomegaly. Coronary arterial calcic lesions are present. There are diffuse fibrotic changes of the lungs. There are mild emphysematous changes of the lower lobes. Status post surgical changes of the left breast. There is a small hiatal hernia. Consults: Cardiology Operations: None Procedures: 2-D Echocardiogram - Interpretation Summary The estimated ejection fraction is 10-15 %. Stage 1 diastolic dysfunction. Trivial mitral valve insufficiency. Trivial tricuspid valve insufficiency. Right ventricular systolic pressure estimated to be 36 mmHg. LV function c/w Takotstubos cardiomyopathy, Cardiac catheterization - CONCLUSIONS Non obstructive coronary arteries Cardiomyopathy: Takotsubo LVEF: by LV gram 20 % Successful Mynx closure device. Echo to document LV Function. Repeat echo in 3 months after cardiac rehab. F/u with Dr Diaz or Dr Thomas. 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 Patient states the discomfort feels like a pressure, radiates into her arms, unaccompanied by nausea or vomiting and she had no diaphoresis. At the time of my examination, patient states her chest pain is a 2 out of 10 with 10 being the worst pain. Patient has had multiple heart catheterizations in the past-the last one was probably 5 or more years ago, according to the patient and the patient's family who were in the room during my examination, she was never found to have occlusive coronary disease and has never had a stent placed. She does see Dr. Thomas on a regular basis, she has had an echocardiogram this year and according to her daughter, the patient's ejection fraction was improved over her other echocardiograms. I put in a brief call to Dr. Stout this afternoon and he states that to his recollection her echo had shown an ejection fraction of 30% in the past. He did not recall when her last echo was performed. Workup in the emergency room included an EKG which showed a normal sinus rhythm with a left bundle branch block pattern and occasional PVCs, CTA of the chest was performed to rule out pulmonary embolism-no evidence of pulmonary embolism was noted, patient did have diffuse fibrotic changes of the lung with mild emphysematous changes of the lower lobes. Labs were obtained, patient's CBC was unremarkable, patient's chemistry panel was remarkable for a potassium of 3.4, glucose was 151, and troponin was elevated at 0.257. The emergency room physician contacted Dr. Diaz who is on-call for cardiology, he requested the patient be placed on a nitro drip and he requested the patient be given Lovenox subcu. Patient will be admitted to ICU for non-STEMI, I talked to the patient briefly about undergoing a heart catheterization tomorrow and she was not opposed to it at the time of my conversation. Vital Signs - 24 hr Temp Pulse Resp BP Pulse Ox 03/22/18 07:05 64 03/22/18 06:54 88 03/22/18 04:10 97.8 F 64 16 125/54 H 97 03/22/18 03:10 58 L 03/22/18 00:40 129 H 03/21/18 23:14 63 03/21/18 22:11 98.5 F 75 18 125/61 H 95 03/21/18 18:59 69 03/21/18 16:53 97.6 F L 65 17 111/53 L 95 03/21/18 15:53 66 03/21/18 13:55 98.0 F 69 17 123/60 H 95 03/21/18 12:51 98.3 F 82 18 133/89 H 93 03/21/18 12:05 98.4 F 72 18 121/62 H 95 03/21/18 11:41 72 03/21/18 11:25 73 18 136/66 H 95 03/21/18 10:55 71 18 137/65 H 95 03/21/18 10:40 99.0 F 72 19 H 128/74 H 92 03/21/18 10:25 72 19 H 138/71 H 92 03/21/18 10:19 74 03/21/18 10:10 99.1 F 77 18 152/76 H 92 General: Alert, Oriented x3, Cooperative, No apparent distress HEENT: Atraumatic, PERRLA, EOMI, Normocephalic Oral: Moist Mucosa Neck: Supple, No JVD Lungs: Clear to auscultation, Normal air movement, No rhonchi, No wheeze, No rales Cardiovascular: Regular rate, Regular Rhythm, Normal S1, Normal S2, No murmurs Abdomen: Soft, Non Tender, Non-Distended, No Hepato-splenomegaly Extremities: No edema, Capillary Refill Less than 3 Seconds Skin: No rashes, No breakdown Neurological: Neuro grossly intact, Sensory exam intact to light touch and pain Psych/Mental Status: Normal Affect, Appropriate Hospital Course 1. NSTEMI/non-ischemic (Takotsubo) Cardiomyopathy/HTN/HLD -82-year-old female who presented with chest pressure and pain. She had had a cardiac catheterization within the last 5 years and that was negative. She never had a stent placed. Her staff engineer is Dr. Stout. She had an EKG on admission with a left bundle branch block (old) and occasional PVCs, as well as troponins that peaked at 4 and decreased to 3.75. She had a cardiac catheterization which showed nonobstructive coronary artery disease and a talk at [facility] [place]-like pattern. She had multiple medication changes for her blood pressure. She was started on Coreg and her metoprolol was discontinued, her lisinopril was discontinued and she was started on Cozaar. Her blood pressure occasionally was dipping down into the high 90s low 100s, therefore her imdur and her felodipine were also discontinued. She is to continue her Aldactone and her hydrochlorothiazide as well as her pravastatin. She did have a lipid panel which was unremarkable. She is to have an echo in 1-2 months and if her EF still remains at the 10-15%, she will likely need an AICD placed. This plan was discussed with her and her family who understood, and were agreeable to the plan. 2. Pulmonary Fibrosis -in the ER to evaluate her chest pain she had a CT of her chest was performed which showed some interstitial fibrosis. Currently she is not on oxygen and is not complaining of any shortness of breath and therefore would recommend that once her cardiac issues stable she undergo pulmonary function testing for further evaluation and correlation with the CTA. 3. Her other medical diagnoses were evaluated in her home medications were continued were appropriate Patient Problems: Active and Suspected Problems Chest pain (Acute) LV dysfunction (Acute) Non-STEMI (non-ST elevated myocardial infarction) (Acute) - Physical Exam Vital Signs Temp Pulse Resp BP Pulse Ox 97.8 F 64 16 125/54 H 88 03/22/18 04:10 03/22/18 07:05 03/22/18 04:10 03/22/18 04:10 03/22/18 06:54 Oxygen Flow Rate (L/min) 2 Oxygen Delivery Method Room Air Weight: 151 lb 14.376 oz Body Mass Index (BMI) 25.7 Finger Stick Blood Glucose 96 Intake and Output for Last 24 Hours 03/20/18 03/21/18 03/22/18 23:59 23:59 23:59 Intake Total 1337 / 1337 50 / 50 Output Total 400 / 400 500 / 500 Balance -400 / -400 837 / 837 50 / 50 Laboratory Tests Past 24 Hrs 03/21/18 01:35 Triglycerides 142 Cholesterol 145 LDL Cholesterol 75 VLDL Cholesterol 28 HDL Cholesterol 42 Discharge Activity: Return to Normal Activity Call your doctor if you observe: Shortness of breath, Dizziness, Fainting spells, Swelling in the ankles, Chest pain, Increased palpitations (irregular heartbeat) Home Medications: Medications to take at Discharge Brimonidine Tartrate/Timolol [Combigan 0.2%-0.5% Eye Drops] 1 drop EACH EYE BID 07/23/16 Clopidogrel Bisulfate [Plavix] 75 mg PO DAILY 07/23/16 Hydrochlorothiazide [Hctz] 25 mg PO QODAY 07/23/16 Nitroglycerin 0.4 mg SL Q5M PRN 07/23/16 Potassium Chloride 20 meq PO DAILY 07/23/16 Pravastatin [Pravachol] 40 mg PO QHS 07/23/16 Spironolactone [Aldactone] 25 mg PO QODAY 07/23/16 Carvedilol [Coreg (Beta Savage)] 6.25 mg PO BID #60 tablet 03/22/18 Losartan Potassium [Cozaar] 50 mg PO DAILY #30 tablet 03/22/18 Following Prescrptions Were Given to Patient: Losartan Potassium [Cozaar] 50 mg PO DAILY #30 tablet Carvedilol [Coreg (Beta Savage)] 6.25 mg PO BID #60 tablet Primary Care Physician: Chris Fournier DO [Primary Care Provider] - Please follow up with your Primary Care Physician in: 3-5 days Disposition: Home Minutes spent on discharge:: 35 Patient Condition:: Good Medical Necessity - Tobacco Use Smoking Status: Never smoker Tobacco Use: Non-smoker Meaningful Use Info Meaningful Use Diagnoses (Choose all that apply): AMI - AMI Aspirin given w/in 24hrs of arrival?: Yes ASA at discharge?: Yes Statins at discharge?: Yes Kirt/ARB at discharge?: Yes Beta Savage at discharge?: Yes Done w/ Acute IN measure.: Yes Code Visit Inpatient E&M: 49097 Disch Hosp
[2018-03-22] MEDS: BRIMONIDINE 0.2% 5ML BOTTLE 1 DRP EACH EYE (09:26)
[2018-03-22] MEDS: Carvedilol 6.25 MG Tablet PO (09:27)
[2018-03-22] MEDS: Timolol 0.5% 5ML OPTH.BTL 1 DRP EACH EYE (09:27)
[2018-03-22] MEDS: Losartan Potassium 50 MG Tablet PO (09:27)
[2018-03-22 09:30] VITALS: BP 118/64; PULSE 76; RESP 18; TEMP 37.1; O2SAT 92
--- NOTE | 2018-03-22 10:40 | PCM.PN.CARD ---
Subjectve: Patient doing very well, right groin is clean/dry/intact, no thrills or bruit. Telemetry showed normal sinus rhythm, no ventricular arrhythmias. Objective: Vital Signs Temp Pulse Resp BP Pulse Ox 98.7 F 76 18 118/64 92 03/22/18 09:30 03/22/18 09:30 03/22/18 09:30 03/22/18 09:30 03/22/18 09:30 Oxygen Flow Rate (L/min) 2 Oxygen Delivery Method Room Air Weight: 151 lb 14.376 oz Body Mass Index (BMI) 25.7 Finger Stick Blood Glucose 96 Intake and Output for Last 24 Hours 03/20/18 03/21/18 03/22/18 23:59 23:59 23:59 Intake Total 1337 / 1337 50 / 50 Output Total 400 / 400 500 / 500 Balance -400 / -400 837 / 837 50 / 50 General: Awake, Alert, Oriented x 3 HEENT: PERRL, EOMI, Sclera Non Icteric Neck: Supple, Good ROM, No Lymph Node Enlargement Lungs: Clear to auscultation Cardiovascular: Regular Rhythm, Normal S1, Normal S2, No Murmurs, No Rubs, No Gallops Vascular: No Carotid Bruits, Normal Femoral Pulses, Normal Radial Pulses, Normal Dorsalis Pedal Pulse, Normal Posterior Tibial Pulses Abdomen: Bowel Sounds Present, Soft, Non Tender, No HSM, No Organomegaly Extremities: No Cyanosis, No Clubbing, No edema Neurological: No Focal Motor or Sensory Deficit 03/21/18 01:35: Triglycerides 142, Cholesterol 145, LDL Cholesterol 75, VLDL Cholesterol 28, HDL Cholesterol 42 Rhythm: EKG: ECHO: Echo showed an EF around 10-15% with an RVSP of 32mmHg consistent with Takostubos cardia myopathy contraction pattern. Stress Test: Cardiac Cath: PCI: CT Surgery: Holter monitor: EPS: PPM: CXR: Chest CT Scan: Medical Necessity - Tobacco Use Smoking Status: Never smoker Tobacco Use: Non-smoker Assessment/Plan 1. LV dysfunction: The patient had what appeared to be stress-induced cardiomyopathy consistent with Takostubos cardiomyopathy. Urgent catheterization on 03/21/18 for non-STEMI showed nonobstructive coronary artery disease. Would recommend that she continue baby aspirin and Plavix going forward given her non-STEMI, and minimal nonobstructive coronary disease, as well as her severe LV dysfunction. Would recommend discontinuation of atenolol and switching her to Coreg 6.25 mg p.o. twice daily, discontinuation of lisinopril and switching her to Cozaar 50 mg p.o. daily. She continue her hydrochlorothiazide and spironolactone. If her blood pressure still not well controlled I would recommend trying Imdur 30 mg p.o. daily for ongoing vaso-dilatation. Would recommend repeat echocardiogram in 1-2 months to determine if her LV function has improved. I advised the patient and her family that this may happen again given her previous incidences of cardiomyopathy, and may need to be aware of this prior to any stressful events, anniversaries, or holiday seasons which may cause her anxiety. If her LV function has not improved with medical therapy, cardiac rehab, she may require a prophylactic AICD. 2. Coronary artery disease: The patient has minimal nonobstructive coronary disease. Given her recent non-STEMI recommend baby aspirin and Plavix as well as aggressive LDL reduction. Lipids are pending. Continue Pravachol. 3. Thank you very much for the opportunity to participate in the cardiac care of your patient. Discussed with primary hospitalist. Patient may be discharged home and follow-up with Dr. Diaz going forward by the patient's request. Code Visit Inpatient E&M: 93572 Subs Hosp L2
--- NOTE | 2018-03-23 09:07 | CRPHASE1 ---
Patient Data/Charges Reason Not Completed:: Patient discharged. CR staff contacted patient via phone on 03/23/18 and reviewed material in [facility]. Booklet was not given to adonis at discharge, so we are mailing one to her today. Phase II Referral:: [facility] Start Phase II:: Within 2 weeks-14 days of discharge. Phase I Charge:: Level I - Education Risk Factors/Lifestyle Smoking Status: Never smoker Hx Hypertension: No Hx Diabetes Mellitus Type 2: No Hx Obesity: No Height: 5 ft 3 in Weight:: 145 lb BMI: 25.7 Risk Factor for Sedentary Lifestyle: Lowest Risk Laboratory Values: Cardiac Rehab Phase I Labs Triglycerides 142 mg/dL (-199) 03/21/18 01:35 Cholesterol 145 mg/dL (200) 03/21/18 01:35 LDL Cholesterol 75 mg/dL (0-130) 03/21/18 01:35 HDL Cholesterol 42 mg/dL (40-) 03/21/18 01:35 Phase I Education Given On:: [place] Knowledge of Condition:: Yes Learning Preferences: Verbal, Written Hospital Course Presenting Symptoms:: NSTEMI, left heart cath procedure, non-PCI. Patient states she is doing fine since being home. Denied any chest pain, discomfort or persisting symptoms. Medical/Surgical History [place]:: Yes - nstemi CAD:: Yes Cardiomyopathy:: Yes - Takastubo Cardiomyopathy, LV Dysfuntion. Pulmonary:: Yes - Pulmonary Fibrosis
--- NOTE | 2018-03-23 09:12 | CRPHASE1_ITS ---
Patient Data/Charges Reason Not Completed:: Patient discharged. CR staff contacted patient via phone on 03/23/18 and reviewed material in [facility]. Booklet was not given to adonis at discharge, so we are mailing one to her today. Phase II Referral:: [facility] Start Phase II:: Within 2 weeks-14 days of discharge. Phase I Charge:: Level I - Education Risk Factors/Lifestyle Smoking Status: Never smoker Hx Hypertension: No Hx Diabetes Mellitus Type 2: No Hx Obesity: No Height: 5 ft 3 in Weight:: 145 lb BMI: 25.7 Risk Factor for Sedentary Lifestyle: Lowest Risk Laboratory Values: Cardiac Rehab Phase I Labs Triglycerides 142 mg/dL (-199) 03/21/18 01:35 Cholesterol 145 mg/dL (200) 03/21/18 01:35 LDL Cholesterol 75 mg/dL (0-130) 03/21/18 01:35 HDL Cholesterol 42 mg/dL (40-) 03/21/18 01:35 Phase I Education Given On:: [place] Knowledge of Condition:: Yes Learning Preferences: Verbal, Written Hospital Course Presenting Symptoms:: NSTEMI, left heart cath procedure, non-PCI. Patient states she is doing fine since being home. Denied any chest pain, discomfort or persisting symptoms. Medical/Surgical History [place]:: Yes - nstemi CAD:: Yes Cardiomyopathy:: Yes - Takastubo Cardiomyopathy, LV Dysfuntion. Pulmonary:: Yes - Pulmonary Fibrosis
[2018-03-23 09:13] VITALS: BMI 25.7
--- NOTE | 2018-03-23 09:14 | CRPH1.INSTRU ---
General Education CAD and cardiac anatomy and function:: Patient communicates acknowledgment Explanation of diagnoses and procedures:: Patient communicates acknowledgment Sign/Symptoms of ME:: Patient communicates acknowledgment Antiplatelet therapy: Patient communicates acknowledgment Proper use of NTG-SL: Patient communicates acknowledgment Emergency procedures and activation of EMS: Patient communicates acknowledgment Compliance of all prescribed medications: Patient communicates acknowledgment Dyslipidemia Patient Dyslipidemia Risk Factors Are:: Total Cholesterol - 145, Triglycerides - 142, HDL - 42, LDL - 75 Recommendations Include:: Lipid profile provided Dyslipidemia Response Code:: Patient communicates acknowledgment Heart Disease Patient Heart Disease Risk Factors Are:: Previous cardiac event Recommendations Include:: Educated family members of their risk, Educated family members of importance of prevention of heart disease Heart Disease Response Code:: Patient communicates acknowledgment - Booklet was not given to marcialt at discharge. We are mailing one to her today.
--- NOTE | 2018-03-23 13:35 | CASEMGMT ---
RN CM DC Phone Call Attempted call to Home phone but line would disconnect. Lara LEVYN RN ACM
== END 2018-03-22 10:18 | disposition home or self-care (01) | DRG 281 ==
LOC: ED 16:50 → ICU 17:56 → PCU 03-21 10:12
PROVIDERS: Internal Medicine Cardiovascular Disease; Admitting Provider Internal Medicine; Emergency Provider Emergency Medicine; Family Provider Student in an Organized Health Care Education/Training Program; PCP Student in an Organized Health Care Education/Training Program; Visit Provider Family Medicine
DX: I21.4 Non-ST elevation (NSTEMI) myocardial infarction (principal); I51.81 Takotsubo syndrome; J84.10 Pulmonary fibrosis, unspecified; I44.7 Left bundle-branch block, unspecified; E78.5 Hyperlipidemia, unspecified; H40.9 Unspecified glaucoma; Z79.899 Other long term (current) drug therapy; Z79.02 Long term (current) use of antithrombotics/antiplatelets; I25.10 Atherosclerotic heart disease of native coronary artery without angina pectoris; I10 Essential (primary) hypertension
CPT/HCPCS: 71045; 71275; 80048; 80061; 81001; 84484; 85025; 85610; 85730; 93005; 93306; 93458; 99283; C1760; J7030; Q9957; Q9967; A4216; C1769; C1894; C8929; J2405

== ENCOUNTER → 2018-06-22 09:41 | Outpatient (CLI) | payer MEDICARE, OTHER, SELFPAY ==
[2018-05-16 14:46] VITALS: BMI 26.4
--- NOTE | 2018-06-22 09:44 | ECHOCS_ITS ---
Reason For Study: CHF Procedure This was a 2D Doppler, Color Flow transthoracic echocardiogram. Technically difficult study. Unable to perform strain analysis due to use of Definity. Exam performed in department. Left Ventricle Moderate concentric left ventricular hypertrophy. The estimated ejection fraction is 60 %. Septal motion consistent with IVCD. Stage 1 diastolic dysfunction. No regional wall motion abnormalities noted. Right Ventricle Normal size and thickness. Normal systolic function. Atria Normal left atrium. Normal right atrium. Normal atrial septum. Mitral Valve The mitral valve is structurally normal. No prolapse or stenosis seen. Tricuspid Valve Normal tricuspid valve. Trivial tricuspid valve insufficiency. Right ventricular systolic pressure estimated to be 36 mmHg. Aortic Valve Trisinus/trileaflet aortic valve. Mild diffuse aortic valve thickening. Pulmonic Valve Normal pulmonic valve. Trivial pulmonic valve insufficiency. Great Vessels Normal aortic root. Normal arch. Normal inferior vena cava. Inferior vena cava collapse with sniff. Pericardium/Pleural No pericardial effusion. Medication 22 gauge I.V. with prn adaptor inserted into right arm. Diluted definity 4ml given slow IV push to enhance endocardial definition. MMode/2D Measurements & Calculations LVIDd: 4.2 cm IVSd: 1.6 cm Ao root diam: 3.0 cm LVIDs: 2.8 cm LVPWd: 1.5 cm RVDd: 3.1 cm FS: 31.8 % LAV(MOD-bp): 54.2 ml LA A4 area: 21.2 cm2 RA A4 area: 11.8 cm2 LAV(MOD-bp) Indexed: 31.7 ml/m2 LAV(MOD-sp2): 47.0 ml LAV(MOD-sp4): 63.8 ml Time Measurements MV dec time: 0.28 sec Doppler Measurements & Calculations MV E max garcia: 79.2 cm/sec Lat Peak E' Garcia: 6.3 cm/sec Med Peak E' Garcia: 3.2 cm/sec MV A max garcia: 126.1 cm/sec E/E' lat: 12.5 E/E' med: 25.0 MV E/A: 0.63 MV V2 max: 142.5 cm/sec MV P1/2t max garcia: 91.5 cm/sec Ao V2 max: 145.6 cm/sec MV max P.1 mmHg MV P1/2t: 150.5 msec Ao max P.5 mmHg MV V2 mean: 64.5 cm/sec MV dec slope: 178.0 cm/sec2 Ao V2 mean: 93.5 cm/sec MV mean P.0 mmHg Ao mean P.0 mmHg MV V2 VTI: 45.4 cm MVA(P1/2t): 1.5 cm2 Ao V2 VTI: 33.5 cm LV V1 max: 104.3 cm/sec PA V2 max: 90.5 cm/sec PI end-d garcia: 81.9 cm/sec LV V1 max P.4 mmHg LV V1 mean P.1 mmHg LV V1 mean: 67.1 cm/sec LV V1 VTI: 26.1 cm TR max garcia: 276.9 cm/sec TR max P.7 mmHg Interpretation Summary Moderate concentric left ventricular hypertrophy. The estimated ejection fraction is 60 %. Stage 1 diastolic dysfunction. Trivial tricuspid valve insufficiency. Right ventricular systolic pressure estimated to be 36 mmHg. Compared to echo report dated 03/21/2018, LV function has gone from 10-15% to 60%, with resolution of Takostubo's cardiomyopathy. RVSP has remained the same. The study was technically difficult. Contrast injection was performed. Ordering Physician: Julia Bonilla Referring Physician: Julia Bonilla Performed By: Jesus Rodríguez RCS
== END ==
PROVIDERS: Family Provider Student in an Organized Health Care Education/Training Program; PCP Student in an Organized Health Care Education/Training Program; Referring Provider Physician Assistant Medical; Visit Provider Physician Assistant Medical
DX: I25.118 Atherosclerotic heart disease of native coronary artery with other forms of angina pectoris (principal)
CPT/HCPCS: 93306; Q9957; A4216; C8929

== ENCOUNTER 2018-08-05 20:38 | Inpatient (IN) | payer MEDICARE, OTHER, SELFPAY ==
[2018-06-28 15:08] VITALS: BMI 26.5
[2018-08-05 20:39] VITALS: BP 199/72; PULSE 74; RESP 26; TEMP 36.5; O2SAT 96; BMI 26.5
--- NOTE | 2018-08-05 21:02 | EKG12_ITS ---
Test Reason : CP Blood Pressure : / mmHG Vent. Rate : 074 BPM Atrial Rate : 074 BPM P-R Int : 168 ms QRS Dur : 140 ms QT Int : 412 ms P-R-T Axes : 003 000 150 degrees QTc Int : 457 ms Normal sinus rhythm Left bundle branch block Abnormal ECG Confirmed by SHAYLA HARO ([id number]), senior editor KENYA CUMMINS ([id number]) on 08/08/2018 1:54:46 PM Referred By: Sun Silverman Confirmed By:SHAYLA HARO
--- NOTE | 2018-08-05 21:04 | ED.DCSUM_ITS ---
- ER Visit Summary Date of Service: 08/05/18 Chief Complaint: Chest pain History of Present Illness: The patient is a 82 F with history of coronary artery disease and toxicity was cardiomyopathy presents for several hours of chest pain. Onset was during the night, diffuse chest pain, and relieved by 3 nitro. Patient's pain returned after she walked to the mailbox this afternoon. It did not respond to nitro at this time. Patient is having associated shortness of breath and mild lower right-sided back pain. She also has felt nauseated. No abdominal pain. Patient did not take any aspirin. She has hypertension, borderline diabetes, high cholesterol, and is on Plavix. Physical Examination: Vital signs: afebrile, hemodynamically stable, no hypoxia on room air General: well nourished, well developed, in no distress Skin: warm, dry, no rash, no pallor HEENT: normocephalic and atraumatic; PERRL, EOMI, moist mucous membranes Cardiovascular: regular rate and rhythm without murmurs, no peripheral edema, 2+ pulses all distal extremities Respiratory: No increased work of breathing, lungs are clear to auscultation bilaterally, no rales, rhonchi or wheezing Abdominal: Abdomen is soft, nontender with normoactive bowel sounds, no guarding or rebound, no masses MSK: Moves all extremities, no deformities, normal strength Neuro: Awake and alert, oriented ?4. No facial droop, sensation and motor function intact and symmetric ] Test Results: Abnormal Lab Results 08/05/18 08/05/18 08/05/18 20:45 20:45 20:45 WBC 5.8 RBC 4.20 Hgb 12.9 Hct 36.9 L MCV 87.9 MCH 30.7 MCHC 35.0 RDW 12.9 RDW Differential 41.3 Plt Count 238 MPV 9.7 Immature Gran % (Auto) 0.200 Neut % (Auto) 43.0 L Lymph % (Auto) 47.8 H [place] % (Auto) 7.1 Eos % (Auto) 1.6 Baso % (Auto) 0.3 Absolute Neuts (auto) 2.5 Absolute Lymphs (auto) 2.77 Total Counted Not Reportable PT 13.7 INR 1.1 APTT 26.9 Sodium 132 L Potassium 4.2 Chloride 100 Carbon Dioxide 22.0 Anion Gap 10 BUN 21 H Creatinine 1.40 H Estim Creat Clear Calc 25.19 Est GFR (MDRD) Af Amer 46 L Est GFR (MDRD) Non-Af 38 L BUN/Creatinine Ratio 15.0 Glucose 456 H* Calcium 8.6 Troponin I < 0.015 B-Natriuretic Peptide 08/05/18 20:45 WBC RBC Hgb Hct MCV MCH MCHC RDW RDW Differential Plt Count MPV Immature Gran % (Auto) Neut % (Auto) Lymph % (Auto) [place] % (Auto) Eos % (Auto) Baso % (Auto) Absolute Neuts (auto) Absolute Lymphs (auto) Total Counted PT INR APTT Sodium Potassium Chloride Carbon Dioxide Anion Gap BUN Creatinine Estim Creat Clear Calc Est GFR (MDRD) Af Amer Est GFR (MDRD) Non-Af BUN/Creatinine Ratio Glucose Calcium Troponin I B-Natriuretic Peptide 71.0 Clinical Impression(s) from Imaging Studies Chest X-Ray 08/05/18 21:13 IMPRESSION: No acute cardiopulmonary disease or interval change. Electronically Signed: Kye Abraham DO at 21:38 EDT Tel [phone], Service support , Medications Given Discontinued Medications Aspirin (Aspirin, Baby) 324 mg PO X1 STA Stop: 08/05/18 21:03 Last Admin: 08/05/18 21:28 Dose: 324 mg Sodium Chloride () 1,000 mls @ 999 mls/hr IV .Q1H1M ONE Stop: 08/05/18 23:47 Last Admin: 08/05/18 22:51 Dose: 999 mls/hr Morphine Sulfate () 4 mg IV X1 ONE Stop: 08/05/18 21:03 Last Admin: 08/05/18 21:30 Dose: 4 mg Nitroglycerin (Nitrobid) 1 inch TRANSDERM. X1 STA Stop: 08/05/18 21:03 Last Admin: 08/05/18 21:29 Dose: 1 inch Emergency Department Course and Treatment: Patient presents for episodes of chest pain today, initially responsive to nitroglycerin but now unresponsive to nitro. She does have significant cardiac history. Chest pain work-up was pe rformed. She was given aspirin, and nitro was applied topically. Patient was also given morphine for her pain. EKG showed left bundle branch block negative for ischemic changes perSgarbossa criteria and unchanged from prior EKG. Chest x-ray showed no acute process. Labs were remarkable for hyperglycemia 456 without any elevated bicarb or anion gap. Troponin negative. BNP was within normal limits. On repeat evaluation patient was pain-free. She was given IV fluids for the hyperglycemia. Because of patient's significant cardiac history and her concerning story, she will require admission for further chest pain work-up. She also will require further work-up for her significant hyperglycemia without DKA. Patient was discussed with Dr. Silverman for admission. Treatment Plan: [] Disposition: [] Impression: Acute chest pain, cardiac history, hyperglycemia This note was generated with [employer] dictation software. It may contain incorrect words, spelling, and punctuation that were not noted in review of the chart prior to signing ED Disposition - Plan for ED Patient: Disposition: Acute Care [facility]
--- NOTE | 2018-08-05 21:13 | RAD_ITS ---
STUDY: X-RAY CHEST REASON FOR EXAM: Female, 82 years old. Chest pain. TECHNIQUE: Single AP portable view of the chest. COMPARISON: March 20, 2018. FINDINGS: Telemetry wires overlie the chest. Lungs well-expanded. There is chronic interstitial coarsening without acute infiltrate or mass. There is no demonstrated pleural abnormality. Normal size heart. Normal mediastinum and olayinka. Normal visualized pulmonary arteries. Normal visualized aortic arch and descending thoracic aorta. There are diffuse degenerative changes of the visualized thoracic spine. There is degenerative osteoarthritis of the bilateral shoulders. Again seen is surgical clips in the left axilla. RAD/Chest 1 View (Portable) IMPRESSION: No acute cardiopulmonary disease or interval change. Electronically Signed: Kye Abraham DO at 21:38 EDT Tel [phone], Service support ,
[2018-08-05] MEDS: Aspirin 81 MG TAB.CHEW 324 MG PO (21:28)
[2018-08-05 21:29] VITALS: BP 199/73; PULSE 70
[2018-08-05] MEDS: Nitroglycerin Oint 1 INCH PACKET TRANSDERM. (21:29)
[2018-08-05] MEDS: Morphine 4 MG/ML Syringe IV (21:30)
[2018-08-05 21:33] VITALS: O2SAT 97
[2018-08-05 21:42] LABS: Absolute Lymphocyte Count 2.77 X10^3/ul (0.83-4.51); Absolute Neutrophil Count 2.5 X10^3/uL (2.0-7.7); Basophil# 0.02 X10^3/uL; Basophil% 0.3 % (0-1); Eosinophil# 0.09 X10^3/uL; Eosinophils% 1.6 % (0-5); Hematocrit 36.9 % (37-47); Hemoglobin 12.9 g/dl (12.0-15.0); Lymphocyte # 2.77 X10^3/ul (4.0); Lymphocyte % 47.8 % (19-41); Mean Corpuscular Hgb 30.7 pg (27.0-32.0); Mean Corpuscular Volume 87.9 fL (81-99); Mean Platelet Vol. 9.7 fl (6.2-12.0); Monocyte# 0.41 X10^3/uL; Monocyte% 7.1 % (0-10); Neutrophil # 2.49 X10^3/uL (2.7-7.7); Platelet Count 238 K/mm3 (150-450); RBC Distribution Width CV 12.9 % (11.6-14.6); RBC Distribution Width SD 41.3 fl (35.1-43.9); White Blood Count 5.8 K/mm3 (4.4-11.0)
[2018-08-05 21:43] LABS: International Normalized Ratio 1.1; Prothrombin Time (Protime)PT. 13.7 SECONDS (11.7-14.9)
[2018-08-05 21:44] LABS: POSITIVE COUNT NO; POSITIVE DIFFERENTIAL NO; POSITIVE MORPHOLOGY NO; Partial Thromboplast Time 26.9 Seconds (24.1-36.2)
[2018-08-05 22:41] LABS: Anion Gap 10 (5-15); BUN 21 mg/dL (7-18); Calcium,Total 8.6 mg/dL (8.5-10.1); Chloride 100 mmol/L (98-107); EST Glomerular Filtration Rate 38 mL/min (>60); Est Glom Filt Rate - Afr Amer 46 mL/min (>60); Estimated Creatinine Clearance 25.19 ml/min; Glucose 456 mg/dL (74-106); Potassium 4.2 mmol/L (3.5-5.1); Sodium Level 132 mmol/L (136-145)
[2018-08-05 22:48] VITALS: BP 185/73; PULSE 61; RESP 22; O2SAT 97
[2018-08-05] MEDS: 0.9% Normal Saline 1,000 ML 999 ML IV (22:51)
--- NOTE | 2018-08-05 23:04 | PCM.HP.STD ---
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 Diaz: mid RCA ,30% stenosis, remaining coronaries normal, Takotsubo CMP per echo, EF 10-15%. (5) Takotsubo cardiomyopathy Status: Chronic Comment: EF 10-15% per echo (6) Diabetes mellitus, type II Status: Chronic Qualifiers: Diabetes mellitus senior living insulin use: without intermediate card tender use Diabetes mellitus complication status: with unspecified complications Qualified Code(s): E11.8 - Type 2 diabetes mellitus with unspecified complications History of Present Illness Date of Admission: 08/05/18 Chief Complaint: Chest pain The patient is a 82 y/o F w/ PMHx: ? Borderline DM (Suspect Diabetes mellitus type II but deferred treatment to avoid hypoglycemia), CAD s/p NSTEMI w/ non-obstructive disease (02/2018), HTN, HLD, Takotsubo Cardiomyopathy (EF 10-15%), Hypothyroidism who presents to the [facility] ED on 08/05/18 with history of severe chest pain rated 10 out of 10, scribed as both sharp and pressure like in the midsternal region with radiation toward the back with associated dyspnea, nausea as well as diaphoresis starting the evening prior, awakening her at approximately 3 in the morning following which she administered herself nitroglycerin with some improvement, awakening again at 4 AM with repeat sublingual nitroglycerin administration, slept until 730 with no further chest discomfort until approximately 3 PM on day of ED presentation prompting eventual evaluation. Work-up in the ED included T 97.7, heart rate 74, BP initially 199/72 with improvement 25/73, respiratory rate 22, 97% on 2 L nasal cannula, CBC with WBC 5.8, hemoglobin 12.9, platelet 238 without market shift, unremarkable coags, BMP with sodium 132, BUN/creatinine 21/1.40, glucose 456, troponin less than 0.015, BNP 71, CXR with no acute cardiopulmonary disease, EKG w/ LBBB unchanged from prior. In the ED patient administered normal saline, ASA 324 mg po x 1, morphine, NG. Repeat evaluation in the ED with chest pain rated 0 out of 10. 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 Diaz: mid RCA ,30% stenosis, remaining coronaries normal, Takotsubo CMP per echo, EF 10-15%. 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 Diaz: mid RCA ,30% stenosis, remaining coronaries normal, Takotsubo CMP per echo, EF 10-15%. Takotsubo cardiomyopathy (Chronic) Onset Date: 03/21/18 I51.81 EF 10-15% per echo Non-STEMI (non-ST elevated myocardial infarction) (Chronic) Onset Date: 03/21/18 I21.4 Chest pain (Resolved) R07.9 LV dysfunction (Resolved) I51.9 Allergies amlodipine besylate [From Norvasc] Allergy (Verified 08/05/18 20:44) Rash cephalexin monohydrate [From Keflex] Allergy (Verified 08/05/18 20:44) Hives streptomycin [Streptomycin] Allergy (Verified 08/05/18 20:44) Hives Sulfa (Sulfonamide Antibiotics) Allergy (Verified 08/05/18 20:44) Hives Home Medications: Ambulatory Orders Medication Instructions Recorded Brimonidine Tartrate/Timolol 1 drp EACH EYE BID 07/23/16 [Combigan 0.2%-0.5% Eye Drops] Hydrochlorothiazide [Hctz] 25 mg PO QODAY 07/23/16 Nitroglycerin 0.4 mg SL Q5M PRN 07/23/16 Potassium Chloride 20 meq PO DAILY 07/23/16 Spironolactone [Aldactone] 25 mg PO QODAY 07/23/16 aspirin 81 mg tablet,delayed 81 mg PO DAILY 04/12/18 release metoprolol succinate ER 25 mg 25 mg PO DAILY #30 tab 05/16/18 tablet,extended release 24 hr levothyroxine 25 mcg tablet 25 mcg PO DAILY 06/28/18 losartan 100 mg tablet 100 mg PO DAILY #90 tab 06/28/18 pravastatin 40 mg tablet 40 mg PO QHS #90 tab 06/28/18 Surgical History: Surgical History (Last Reviewed 06/28/18 @ 15:08 by Noelle Figueroa) History of cataract extraction Z98.49 History of cholecystectomy Z90.49 History of hysterectomy Z90.710 History of lumpectomy of left breast Z98.890 Surgical History: cataract, cholecystectomy, hysterectomy, - - Foot surgery, breast lumpectomy Psychiatric History: No pertinent psych hx [employer] History: No pertinent [employer] history Lives: Alone Smoking Status: Never smoker Tobacco Use: Non-smoker Alcohol: None Drugs: None - *Family History Maternal Family History: Family History (Last Reviewed 06/28/18 @ 15:08 by Noelle Figueroa) Father Heart disease Mother Breast cancer Sister Heart disease History Items: Cancer - Breast cancer Paternal Family History: Family History (Last Reviewed 06/28/18 @ 15:08 by Noelle Figueroa) Father Heart disease Mother Breast cancer Sister Heart disease History Items: Heart Disease - heart failure, No pertinent history Review of Systems Constitutional: Reports: Malaise, Weakness, Fatigue. Denies: Chills, Fever, Weight Change HEENT: Denies: Head Aches, Sinus Congestion, Sinus Drainage Cardiovascular: Reports: Chest Pain, Chest Pressure. Denies: Light Headedness, Orthopnea, Palpitations, Syncope Respiratory: Reports: Shortness of Breath. Denies: Cough, Shortness of breath at rest, Shortness of breath upon exertion, Sputum production Gastrointestinal: Reports: Nausea. Denies: Abdominal Pain, Vomiting Genitourinary: Denies: Dysuria Musculoskeletal: Denies: Joint Pain, Joint Tenderness Skin: Denies: Rash, Wounds Neurological: Denies: Numbness, Tingling, Focal weakness Psychiatric: Denies: Anxiety, Depression, Homicidal Ideations, Suicidal Ideations Hematologic/ Lymphatic: Reports: Easy Bruising, Easy Bleeding VTE Information - Inpt Only VTE Present on Admission: No VTE Mechan Device Prophylaxis: SCD's VTE Pharm Prophylaxis ordered?: Yes Patient Problems: Active and Suspected Problems (Last Updated 06/30/18 @ 17:01 by JIMBO Allred) Chest pain (Acute) Subjective: Seated upright in the ED bed, no acute distress, notes chest pain has since resolved. Objective: Physical Examination: General: awake, alert, oriented x 3 and cooperative, seated upright in the ED bed in no apparent distress, notes chest pain resolved, requesting when she can go home. Skin: normal color, turgor, no icterus, cyanosis. HEENT: AT/NC, EOMI, PERRLA, mildly dry MM, no carotid bruits or JVD noted. Lungs: CTA bilaterally, moderate effort, mild decrease BL bases, no rales, ronchi or wheezing. Heart: Regular rate and rhythm; no gallop, rub audible. Abdomen: soft, NTTP, ND, normal BS, no HSM. Extremities: no cyanosis, clubbing, or edema. Neurological: patient awake, alert, oriented x 3; cognitive function intact; pupils equally reactive to light and accomodation; cranial nerves II-XII grossly normal, moving all 4 extremities, no focal deficits, strength moderately global decrease secondary to acute presentation. Psychiatric: affect appears mildly fatigued, mildly irritable,, no acute evidence of depressive or anxiety feelings. - Physical Exam Vital Signs Temp Pulse Resp BP Pulse Ox 97.7 F L 61 22 H 185/73 H 97 08/05/18 20:39 08/05/18 22:48 08/05/18 22:48 08/05/18 22:48 08/05/18 22:48 Oxygen Flow Rate (L/min) 2 Oxygen Delivery Method Nasal Cannula Weight: 149 lb 11.102 oz Body Mass Index (BMI) 26.5 Finger Stick Blood Glucose 96 Laboratory Tests Past 24 Hrs 08/05/18 08/05/18 08/05/18 20:45 20:45 20:45 WBC 5.8 RBC 4.20 Hgb 12.9 Hct 36.9 L MCV 87.9 MCH 30.7 MCHC 35.0 RDW 12.9 RDW Differential 41.3 Plt Count 238 MPV 9.7 Immature Gran % (Auto) 0.200 Neut % (Auto) 43.0 L Lymph % (Auto) 47.8 H [place] % (Auto) 7.1 Eos % (Auto) 1.6 Baso % (Auto) 0.3 Absolute Neuts (auto) 2.5 Absolute Lymphs (auto) 2.77 Total Counted Not Reportable PT 13.7 INR 1.1 APTT 26.9 Sodium 132 L Potassium 4.2 Chloride 100 Carbon Dioxide 22.0 Anion Gap 10 BUN 21 H Creatinine 1.40 H Estim Creat Clear Calc 25.19 Est GFR (MDRD) Af Amer 46 L Est GFR (MDRD) Non-Af 38 L BUN/Creatinine Ratio 15.0 Glucose 456 H* Calcium 8.6 Troponin I < 0.015 B-Natriuretic Peptide 08/05/18 20:45 WBC RBC Hgb Hct MCV MCH MCHC RDW RDW Differential Plt Count MPV Immature Gran % (Auto) Neut % (Auto) Lymph % (Auto) [place] % (Auto) Eos % (Auto) Baso % (Auto) Absolute Neuts (auto) Absolute Lymphs (auto) Total Counted PT INR APTT Sodium Potassium Chloride Carbon Dioxide Anion Gap BUN Creatinine Estim Creat Clear Calc Est GFR (MDRD) Af Amer Est GFR (MDRD) Non-Af BUN/Creatinine Ratio Glucose Calcium Troponin I B-Natriuretic Peptide 71.0 Assessment/Plan All Active Problems (Last Updated 06/30/18 @ 17:01 by JIMBO Allred) Chest pain (Acute) Chest pain (Resolved) LV dysfunction (Resolved) The patient is a 82 y/o F w/ PMHx: ? Borderline DM (Suspect Diabetes mellitus type II but deferred treatment to avoid hypoglycemia), CAD s/p NSTEMI w/ non-obstructive disease (02/2018), HTN, HLD, Takotsubo Cardiomyopathy (EF 10-15%), Hypothyroidism who presents to the [facility] ED on 08/05/18 with history of severe chest pain rated 10 out of 10, scribed as both sharp and pressure like in the midsternal region with radiation toward the back with associated dyspnea, nausea as well as diaphoresis. (1) Chest Pain: Work-up in the ED included T 97.7, heart rate 74, BP initially 199/72 with improvement 25/73, respiratory rate 22, 97% on 2 L nasal cannula, CBC with WBC 5.8, hemoglobin 12.9, platelet 238 without market shift, unremarkable coags, BMP with sodium 132, BUN/creatinine 21/1.40, glucose 456, troponin less than 0.015, BNP 71, CXR with no acute cardiopulmonary disease, EKG w/ LBBB unchanged from prior. Patient flatly declined any stress testing, therefore, will request cardiology evaluation in a.m. ASA, NG, morphine. FLP in AM. Mag pending. (2) Acute kidney injury: Secondary to possibly recently added medications, poor intake. Admission BUN/Cr 21/1.40, prior baseline creatinine noted to be 0.8. Will hydrate, hold nephrotoxic medications and repeat chemistry in AM. If no improvement would plan FeNa assessment. (3) ? Borderline Diabetes mellitus type II w/ Hyperglycemia: From discussion with patient and family suspect patient is likely a diabetic and has not been on oral regimen secondary to attempted avoidance of hypoglycemia. Admission glucose 456, HgbA1c pending, maintain on ADA diet, accu checks w/ ISS, consider low dose BID levemir if needed, nutrition consultation for education and teaching. (4) CAD: s/p NSTEMI, non-obstructive CAD, maintain on asa, plavix, BB, statin, holding ACEI as noted. (5) Hypertension: Continue home regimen including metoprolol, holding patient home hydrochlorothiazide, spironolactone and losartan given mild CRISTI, restart once appropriate, PRN hydralazine. (6) Hyperlipidemia: Continue home statin regimen. AM FLP. (7) Hypothyroidism: Continue home synthroid regimen. (8) Takotsubo Cardiomyopathy: Evaluation w/ recent NSTEMI, noted EF 10-15%, maintained on aspirin, statin, spironolactone, losartan, metoprolol. (9) DVT Prophylaxis: SCDs, heparin. Code Visit OBSV E&M: 40035 Initial observation care L3
--- NOTE | 2018-08-05 23:17 | HP.PCM_ITS ---
Problem List (1) Chest pain Status: Acute Qualifiers: Chest pain type: unspecified Qualified Code(s): R07.9 - Chest pain, unspecified (2) HLD (hyperlipidemia) Status: Chronic Qualifiers: Hyperlipidemia type: unspecified Qualified Code(s): E78.5 - Hyperlipidemia, unspecified (3) Hypothyroidism Status: Chronic Qualifiers: Hypothyroidism type: unspecified Qualified Code(s): E03.9 - Hypothyroidism, unspecified (4) Atherosclerotic heart disease of [place] coronary artery with other forms of angina pectoris Status: Chronic Comment: NSTEMI, nonobstructive CAD per cath done 03/21/[address] Diaz: mid RCA ,30% stenosis, remaining coronaries normal, Takotsubo CMP per echo, EF 10-15%. (5) Takotsubo cardiomyopathy Status: Chronic Comment: EF 10-15% per echo (6) Diabetes mellitus, type II Status: Chronic Qualifiers: Diabetes mellitus fpc insulin use: without intermediate card tender use Diabetes mellitus complication status: with unspecified complications Qualified Code(s): E11.8 - Type 2 diabetes mellitus with unspecified complications History of Present Illness Date of Admission: 08/05/18 Chief Complaint: Chest pain The patient is a 82 y/o F w/ PMHx: ? Borderline DM (Suspect Diabetes mellitus type II but deferred treatment to avoid hypoglycemia), CAD s/p NSTEMI w/ non- obstructive disease (02/2018), HTN, HLD, Takotsubo Cardiomyopathy (EF 10-15%), Hypothyroidism who presents to the [facility] ED on 08/05/18 with history of severe chest pain rated 10 out of 10, scribed as both sharp and pressure like in the midsternal region with radiation toward the back with associated dyspnea, nausea as well as diaphoresis starting the evening prior, awakening her at approximately 3 in the morning following which she administered herself nitroglycerin with some improvement, awakening again at 4 AM with repeat sublingual nitroglycerin administration, slept until 730 with no further chest discomfort until approximately 3 PM on day of ED presentation prompting eventual evaluation. Work-up in the ED included T 97.7, heart rate 74, BP initially 199/72 with improvement 25/73, respiratory rate 22, 97% on 2 L nasal cannula, CBC with WBC 5.8, hemoglobin 12.9, platelet 238 without market shift, unremarkable coags, BMP with sodium 132, BUN/creatinine 21/1.40, glucose 456, troponin less than 0.015, BNP 71, CXR with no acute cardiopulmonary disease, EKG w/ LBBB unchanged from prior. In the ED patient administered normal saline, ASA 324 mg po x 1, morphine, NG. Repeat evaluation in the ED with chest pain rated 0 out of 10. Past Medical History Past Medical History (Chronic Problems): Chronic Problems (Last Updated 06/30/18 @ 17:01 by JIMBO Allred) HLD (hyperlipidemia) (Chronic) Hypothyroidism (Chronic) Diabetes mellitus, type II (Chronic) Atherosclerotic heart disease of [place] coronary artery with other forms of angina pectoris (Chronic 03/21/18) NSTEMI, nonobstructive CAD per cath done 03/21/[address] Diaz: mid RCA ,30% stenosis, remaining coronaries normal, Takotsubo CMP per echo, EF 10- 15%. Takotsubo cardiomyopathy (Chronic 03/21/18) EF 10-15% per echo Non-STEMI (non-ST elevated myocardial infarction) (Chronic 03/21/18) Medical History: Medical History (Last Updated 06/30/18 @ 17:01 by JIMBO Allred) Atherosclerotic heart disease of [place] coronary artery with other forms of angina pectoris (Chronic) Onset Date: 03/21/18 I25.118 NSTEMI, nonobstructive CAD per cath done 03/21/[address] Diaz: mid RCA ,30% stenosis, remaining coronaries normal, Takotsubo CMP per echo, EF 10- 15%. Takotsubo cardiomyopathy (Chronic) Onset Date: 03/21/18 I51.81 EF 10-15% per echo Non-STEMI (non-ST elevated myocardial infarction) (Chronic) Onset Date: 03/21/18 I21.4 Chest pain (Resolved) R07.9 LV dysfunction (Resolved) I51.9 Allergies amlodipine besylate [From Norvasc] Allergy (Verified 08/05/18 20:44) Rash cephalexin monohydrate [From Keflex] Allergy (Verified 08/05/18 20:44) Hives streptomycin [Streptomycin] Allergy (Verified 08/05/18 20:44) Hives Sulfa (Sulfonamide Antibiotics) Allergy (Verified 08/05/18 20:44) Hives Home Medications: Ambulatory Orders Medication Instructions Recorded Brimonidine Tartrate/Timolol 1 drp EACH EYE BID 07/23/16 [Combigan 0.2%-0.5% Eye Drops] Hydrochlorothiazide [Hctz] 25 mg PO QODAY 07/23/16 Nitroglycerin 0.4 mg SL Q5M PRN 07/23/16 Potassium Chloride 20 meq PO DAILY 07/23/16 Spironolactone [Aldactone] 25 mg PO QODAY 07/23/16 aspirin 81 mg tablet,delayed 81 mg PO DAILY 04/12/18 release metoprolol succinate ER 25 mg 25 mg PO DAILY #30 tab 05/16/18 tablet,extended release 24 hr levothyroxine 25 mcg tablet 25 mcg PO DAILY 06/28/18 losartan 100 mg tablet 100 mg PO DAILY #90 tab 06/28/18 pravastatin 40 mg tablet 40 mg PO QHS #90 tab 06/28/18 Surgical History: Surgical History (Last Reviewed 06/28/18 @ 15:08 by Noelle Figueroa) History of cataract extraction Z98.49 History of cholecystectomy Z90.49 History of hysterectomy Z90.710 History of lumpectomy of left breast Z98.890 Surgical History: cataract, cholecystectomy, hysterectomy, - - Foot surgery, breast lumpectomy Psychiatric History: No pertinent psych hx 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 SUPERVISOR history Lives: Alone Smoking Status: Never smoker Tobacco Use: Non-smoker Alcohol: None Drugs: None - *Family History Maternal Family History: Family History (Last Reviewed 06/28/18 @ 15:08 by Noelle Figueroa) Father Heart disease Mother Breast cancer Sister Heart disease History Items: Cancer - Breast cancer Paternal Family History: Family History (Last Reviewed 06/28/18 @ 15:08 by Noelle Figueroa) Father Heart disease Mother Breast cancer Sister Heart disease History Items: Heart Disease - heart failure, No pertinent history Review of Systems Constitutional: Reports: Malaise, Weakness, Fatigue. Denies: Chills, Fever, Leroy ght Change HEENT: Denies: Head Aches, Sinus Congestion, Sinus Drainage Cardiovascular: Reports: Chest Pain, Chest Pressure. Denies: Light Headedness, Orthopnea, Palpitations, Syncope Respiratory: Reports: Shortness of Breath. Denies: Cough, Shortness of breath at rest, Shortness of breath upon exertion, Sputum production Gastrointestinal: Reports: Nausea. Denies: Abdominal Pain, Vomiting Genitourinary: Denies: Dysuria Musculoskeletal: Denies: Joint Pain, Joint Tenderness Skin: Denies: Rash, Wounds Neurological: Denies: Numbness, Tingling, Focal weakness Psychiatric: Denies: Anxiety, Depression, Homicidal Ideations, Suicidal Ideations Hematologic/ Lymphatic: Reports: Easy Bruising, Easy Bleeding VTE Information - Inpt Only VTE Present on Admission: No VTE Mechan Device Prophylaxis: SCD's VTE Pharm Prophylaxis ordered?: Yes Patient Problems: Active and Suspected Problems (Last Updated 06/30/18 @ 17:01 by JIMBO Allred) Chest pain (Acute) Subjective: Seated upright in the ED bed, no acute distress, notes chest pain has since resolved. Objective: Physical Examination: General: awake, alert, oriented x 3 and cooperative, seated upright in the ED bed in no apparent distress, notes chest pain resolved, requesting when she can go home. Skin: normal color, turgor, no icterus, cyanosis. HEENT: AT/NC, EOMI, PERRLA, mildly dry MM, no carotid bruits or JVD noted. Lungs: CTA bilaterally, moderate effort, mild decrease BL bases, no rales, ronchi or wheezing. Heart: Regular rate and rhythm; no gallop, rub audible. Abdomen: soft, NTTP, ND, normal BS, no HSM. Extremities: no cyanosis, clubbing, or edema. Neurological: patient awake, alert, oriented x 3; cognitive function intact; pupils equally reactive to light and accomodation; cranial nerves II-XII grossly normal, moving all 4 extremities, no focal deficits, strength moderately global decrease secondary to acute presentation. Psychiatric: affect appears mildly fatigued, mildly irritable,, no acute evidence of depressive or anxiety feelings. - Physical Exam Vital Signs Temp Pulse Resp BP Pulse Ox 97.7 F L 61 22 H 185/73 H 97 08/05/18 20:39 08/05/18 22:48 08/05/18 22:48 08/05/18 22:48 08/05/18 22:48 Oxygen Flow Rate (L/min) 2 Oxygen Delivery Method Nasal Cannula Weight: 149 lb 11.102 oz Body Mass Index (BMI) 26.5 Finger Stick Blood Glucose 96 Laboratory Tests Past 24 Hrs 08/05/18 08/05/18 08/05/18 20:45 20:45 20:45 WBC 5.8 RBC 4.20 Hgb 12.9 Hct 36.9 L MCV 87.9 MCH 30.7 MCHC 35.0 RDW 12.9 RDW Differential 41.3 Plt Count 238 MPV 9.7 Immature Gran % (Auto) 0.200 Neut % (Auto) 43.0 L Lymph % (Auto) 47.8 H [place] % (Auto) 7.1 Eos % (Auto) 1.6 Baso % (Auto) 0.3 Absolute Neuts (auto) 2.5 Absolute Lymphs (auto) 2.77 Total Counted Not Reportable PT 13.7 INR 1.1 APTT 26.9 Sodium 132 L Potassium 4.2 Chloride 100 Carbon Dioxide 22.0 Anion Gap 10 BUN 21 H Creatinine 1.40 H Estim Creat Clear Calc 25.19 Est GFR (MDRD) Af Amer 46 L Est GFR (MDRD) Non-Af 38 L BUN/Creatinine Ratio 15.0 Glucose 456 H* Calcium 8.6 Troponin I < 0.015 B-Natriuretic Peptide 08/05/18 20:45 WBC RBC Hgb Hct MCV MCH MCHC RDW RDW Differential Plt Count MPV Immature Gran % (Auto) Neut % (Auto) Lymph % (Auto) [place] % (Auto) Eos % (Auto) Baso % (Auto) Absolute Neuts (auto) Absolute Lymphs (auto) Total Counted PT INR APTT Sodium Potassium Chloride Carbon Dioxide Anion Gap BUN Creatinine Estim Creat Clear Calc Est GFR (MDRD) Af Amer Est GFR (MDRD) Non-Af BUN/Creatinine Ratio Glucose Calcium Troponin I B-Natriuretic Peptide 71.0 Assessment/Plan All Active Problems (Last Updated 06/30/18 @ 17:01 by JIMBO Allred) Chest pain (Acute) Chest pain (Resolved) LV dysfunction (Resolved) The patient is a 82 y/o F w/ PMHx: ? Borderline DM (Suspect Diabetes mellitus type II but deferred treatment to avoid hypoglycemia), CAD s/p NSTEMI w/ non- obstructive disease (02/2018), HTN, HLD, Takotsubo Cardiomyopathy (EF 10-15%), Hypothyroidism who presents to the [facility] ED on 08/05/18 with history of severe chest pain rated 10 out of 10, scribed as both sharp and pressure like in the midsternal region with radiation toward the back with associated dyspnea, nausea as well as diaphoresis. (1) Chest Pain: Work-up in the ED included T 97.7, heart rate 74, BP initially 199/72 with improvement 25/73, respiratory rate 22, 97% on 2 L nasal cannula, CBC with WBC 5.8, hemoglobin 12.9, platelet 238 without market shift, unremarkable coags, BMP with sodium 132, BUN/creatinine 21/1.40, glucose 456, troponin less than 0.015, BNP 71, CXR with no acute cardiopulmonary disease, EKG w/ LBBB unchanged from prior. Patient flatly declined any stress testing, therefore, will request cardiology evaluation in a.m. ASA, NG, morphine. FLP in AM. Mag pending. (2) Acute kidney injury: Secondary to possibly recently added medications, poor intake. Admission BUN/Cr 21/1.40, prior baseline creatinine noted to be 0.8. Will hydrate, hold nephrotoxic medications and repeat chemistry in AM. If no improvement would plan FeNa assessment. (3) ? Borderline Diabetes mellitus type II w/ Hyperglycemia: From discussion with patient and family suspect patient is likely a diabetic and has not been on oral regimen secondary to attempted avoidance of hypoglycemia. Admission glucose 456, HgbA1c pending, maintain on ADA diet, accu checks w/ ISS, consider low dose BID levemir if needed, nutrition consultation for education and teaching. (4) CAD: s/p NSTEMI, non-obstructive CAD, maintain on asa, plavix, BB, statin, holding ACEI as noted. (5) Hypertension: Continue home regimen including metoprolol, holding patient home hydrochlorothiazide, spironolactone and losartan given mild CRISTI, restart once appropriate, PRN hydralazine. (6) Hyperlipidemia: Continue home statin regimen. AM FLP. (7) Hypothyroidism: Continue home synthroid regimen. (8) Takotsubo Cardiomyopathy: Evaluation w/ recent NSTEMI, noted EF 10-15%, maintained on aspirin, statin, spironolactone, losartan, metoprolol. (9) DVT Prophylaxis: SCDs, heparin. Code Visit OBSV E&M: 67205 Initial observation care L3
[2018-08-05 23:21] VITALS: BP 202/71; PULSE 64; RESP 16; O2SAT 100
[2018-08-06] VITALS (18 sets, daily range): BP systolic 123–208; BP diastolic 67–126; PULSE 63–81; RESP 15–18; TEMP 36.7–36.9; O2SAT 95–100; BMI 26.2; BMI 26.5
--- NOTE | 2018-08-06 00:04 | EKG12_ITS ---
Test Reason : CP ADMIT Blood Pressure : / mmHG Vent. Rate : 065 BPM Atrial Rate : 065 BPM P-R Int : 172 ms QRS Dur : 146 ms QT Int : 448 ms P-R-T Axes : 008 -02 147 degrees QTc Int : 465 ms Normal sinus rhythm Left bundle branch block Abnormal ECG Confirmed by RANI RIVAS, DAVID ([id number]), editor & co founder KENYA CUMMINS ([id number]) on 08/10/2018 2:01:47 PM Referred By: Sun Silverman Confirmed By:DAVID SARAVIA MD
[2018-08-06 00:21] LABS: Magnesium 1.6 mg/dL (1.6-2.6)
[2018-08-06] MEDS: 0.9% Normal Saline 1,000 ML 100 ML IV ×2 (00:26→11:26)
[2018-08-06 01:21] LABS: Hemoglobin A1c 11.4 % (4.2-6.3)
[2018-08-06 03:39] LABS: Hematocrit 33.3 % (37-47); Hemoglobin 11.7 g/dl (12.0-15.0); Mean Corp Hgb Conc 35.1 g/gl (32-36); Mean Corpuscular Hgb 30.4 pg (27.0-32.0); Mean Corpuscular Volume 86.5 fL (81-99); Mean Platelet Vol. 9.8 fl (6.2-12.0); Platelet Count 224 K/mm3 (150-450); RBC Distribution Width CV 12.4 % (11.6-14.6); RBC Distribution Width SD 38.6 fl (35.1-43.9); Red Blood Count 3.85 M/mm3 (4.2-5.4); Scan Indicated on CBC? Y/N NO; White Blood Count 6.5 K/mm3 (4.4-11.0)
[2018-08-06 04:05] LABS: ALB/GLOB Ratio 0.8 RATIO (0.9-2.4); AST(SGOT) 16 U/L (15-37); Alanine Aminotransfer ALT/SGPT 23 U/L (13-56); Albumin, Serum 2.8 g/dL (3.2-5.0); Alkaline Phosphatase 41 U/L (45-117); Anion Gap 8 (5-15); BUN 17 mg/dL (7-18); BUN/Creat Ratio 18.7 RATIO (10-20); Calcium,Total 7.6 mg/dL (8.5-10.1); Chloride 106 mmol/L (98-107); Cholesterol 132 mg/dL (200); Creatinine, Serum 0.91 mg/dL (0.55-1.02); EST Glomerular Filtration Rate 63 mL/min (>60); Est Glom Filt Rate - Afr Amer 76 mL/min (>60); Estimated Creatinine Clearance 38.75 ml/min; Globulin 3.5 g/dL (2.2-4.2); Glucose 240 mg/dL (74-106); High Density Lipoprotein 48 mg/dL; Potassium 3.7 mmol/L (3.5-5.1); Protein, Total 6.3 g/dL (6.4-8.2); Sodium Level 137 mmol/L (136-145); Triglycerides 130 mg/dL; Very Low Density Lipoprotein 26 mg/dL (5-40)
[2018-08-06] MEDS: Insulin Lispro 100 UNIT/ML INSULN.PEN SC ×4 (06:44→21:09)
[2018-08-06 07:06] LABS: Bedside Glucose 216 mg/dL (70-110)
[2018-08-06] MEDS: hydrALAZINE 20 MG/ML Vial 10 MG IV (08:29)
[2018-08-06] MEDS: 0.9% NaCl Peripheral Flush Adult/Peds IV (08:32)
--- NOTE | 2018-08-06 09:11 | PCM.CONS.C ---
Problem List (1) Chest pain Status: Acute Qualifiers: Chest pain type: unspecified Qualified Code(s): R07.9 - Chest pain, unspecified (2) HLD (hyperlipidemia) Status: Chronic Qualifiers: Hyperlipidemia type: unspecified Qualified Code(s): E78.5 - Hyperlipidemia, unspecified (3) Atherosclerotic heart disease of [place] coronary artery with other forms of angina pectoris Status: Chronic Comment: NSTEMI, nonobstructive CAD per cath done 03/21/[address] Diaz: mid RCA ,30% stenosis, remaining coronaries normal, Takotsubo CMP per echo, EF 10-15%. (4) Takotsubo cardiomyopathy Status: Chronic Comment: EF 10-15% per echo Reason for Consult Date of Consultation: 08/06/18 Reason for Consultation: Chest pain, history of Takostubos cardiomyopathy, nonobstructive coronary disease, hypertension, hypercholesterolemia, History of Present Illness: The patient is a 82 year old F, known to ne, who presented in February 2018 with unstable angina, chest pain, and was found to have a small non-ST elevation myocardial infarction. She underwent diagnostic coronary angiogram by ne which demonstrated mild nonobstructive coronary disease of her LAD, circumflex and right coronary artery. She was found to have stress-induced cardiomyopathy, and was treated with beta-blockers, baby aspirin and Plavix. No stenting was recommended or performed at that time. The patient has been doing well up until Wednesday morning around 3 AM when she was awoken with severe substernal chest pain which was relieved with sublingual nitroglycerin x1. She went back to sleep and awoke again about 4:15 AM with recurrent substernal chest pain again relieved with some lingual nitroglycerin. Patient woke up and developed recurrent chest pain symptoms precipitating a visit to the [facility] ER. In the ER her EKG demonstrated normal sinus rhythm with baseline left bundle branch block, no acute changes. She ruled out for myocardial infarction with negative troponins x3. Of note the patient was found to be profoundly hypertensive with blood pressures in the 180s to 200s during her chest pain symptoms. She reports that she has been compliant with her medications although her hemoglobin A1c is above 11, and her sugars when she came in were above 400. Prior to this and since February she has had no exertional chest pain, angina, or shortness of breath. She denies any precipitating stressors. She declines stress testing at this time given her recent catheterization. [] Past Medical History Allergies/Adverse Reactions: Allergies amlodipine besylate [From Norvasc] Allergy (Verified 08/06/18 00:11) Rash cephalexin monohydrate [From Keflex] Allergy (Verified 08/06/18 00:11) Hives streptomycin [Streptomycin] Allergy (Verified 08/06/18 00:11) Hives Sulfa (Sulfonamide Antibiotics) Allergy (Verified 08/06/18 00:11) Hives Home Medications: Ambulatory Orders Medication Instructions Recorded Brimonidine Tartrate/Timolol 1 drp EACH EYE BID 07/23/16 [Combigan 0.2%-0.5% Eye Drops] Hydrochlorothiazide [Hctz] 25 mg PO QODAY 07/23/16 Nitroglycerin 0.4 mg SL Q5M PRN 07/23/16 Potassium Chloride 20 meq PO DAILY 07/23/16 Spironolactone [Aldactone] 25 mg PO QODAY 07/23/16 aspirin 81 mg tablet,delayed 81 mg PO DAILY 04/12/18 release metoprolol succinate ER 25 mg 25 mg PO DAILY #30 tab 05/16/18 tablet,extended release 24 hr levothyroxine 25 mcg tablet 25 mcg PO DAILY 06/28/18 losartan 100 mg tablet 100 mg PO DAILY #90 tab 06/28/18 pravastatin 40 mg tablet 40 mg PO QHS #90 tab 06/28/18 Past Medical History (Chronic Problems): Chronic Problems (Last Updated 06/30/18 @ 17:01 by JIMBO Allred) HLD (hyperlipidemia) (Chronic) Hypothyroidism (Chronic) Diabetes mellitus, type II (Chronic) Atherosclerotic heart disease of [place] coronary artery with other forms of angina pectoris (Chronic 03/21/18) NSTEMI, nonobstructive CAD per cath done 03/21/[address] Diaz: mid RCA ,30% stenosis, remaining coronaries normal, Takotsubo CMP per echo, EF 10-15%. 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 SPECIALIST history - *Family History Maternal Family History: Family History (Last Reviewed 06/28/18 @ 15:08 by Noelle Figueroa) Father Heart disease Mother Breast cancer Sister Heart disease History Items: Cancer - Breast cancer Paternal Family History: Family History (Last Reviewed 06/28/18 @ 15:08 by Noelle Figueroa) Father Heart disease Mother Breast cancer Sister Heart disease History Items: Heart Disease - heart failure, No pertinent history Lives: Alone Smoking Status: Never smoker Tobacco Use: Non-smoker Alcohol: None Drugs: None Review of Systems - Review of Systems General: Denies: Fever, Night Sweats, Fatigue Cardiovascular: Reports: Chest Discomfort, Chest Discomfort at Rest. Denies: Shortness of Breath, Orthopnea, PND, Peripheral Edema, Palpitations, Lightheadedness, Dizziness, Near Syncope, Syncope Respiratory: Denies: Cough, Sputum Production, Hemoptysis Gastrointestinal: Denies: Hematemesis, Hematochezia, Melena Genitourinary: Denies: Dysuria, Hematuria Skin: Denies: Rash Subjectve: Patient resting comfortably, no acute distress. Objective: Vital Signs Temp Pulse Resp BP Pulse Ox 98.2 F 64 16 157/74 H 95 08/06/18 08:30 08/06/18 08:30 08/06/18 08:30 08/06/18 09:08 08/06/18 08:30 Oxygen Flow Rate (L/min) 2 Oxygen Delivery Method Room Air Weight: 148 lb 2.41 oz Body Mass Index (BMI) 26.2 Finger Stick Blood Glucose 96 Intake and Output for Last 24 Hours 08/04/18 08/05/18 08/06/18 23:59 23:59 23:59 Intake Total 439 / 439 Balance 439 / 439 General: Awake, Alert, Oriented x 3 HEENT: PERRL, EOMI, Sclera Non Icteric Neck: Supple, Good ROM, No Lymph Node Enlargement Lungs: Clear to auscultation Cardiovascular: Regular Rhythm, Normal S1, Normal S2, No Murmurs, No Rubs, No Gallops Vascular: No Carotid Bruits, Normal Femoral Pulses, Normal Radial Pulses, Normal Dorsalis Pedal Pulse, Normal Posterior Tibial Pulses Abdomen: Bowel Sounds Present, Soft, Non Tender, No HSM, No Organomegaly Extremities: No Cyanosis, No Clubbing, No edema Neurological: No Focal Motor or Sensory Deficit 08/05/18 20:45: WBC 5.8, RBC 4.20, Hgb 12.9, Hct 36.9 L, MCV 87.9, MCH 30.7, MCHC 35.0, RDW 12.9, RDW Differential 41.3, Plt Count 238, MPV 9.7, Immature Gran % (Auto) 0.200, Neut % (Auto) 43.0 L, Lymph % (Auto) 47.8 H, [place] % (Auto) 7.1, Eos % (Auto) 1.6, Baso % (Auto) 0.3, Absolute Neuts (auto) 2.5, Total Counted Not Reportable 08/05/18 20:45: PT 13.7, INR 1.1, APTT 26.9 08/05/18 20:45: Sodium 132 L, Potassium 4.2, Chloride 100, Carbon Dioxide 22.0, Anion Gap 10, BUN 21 H, Creatinine 1.40 H, Est GFR (MDRD) Af Amer 46 L, Est GFR (MDRD) Non-Af 38 L, BUN/Creatinine Ratio 15.0, Glucose 456 H*, Calcium 8.6, Troponin I < 0.015 08/05/18 20:45: B-Natriuretic Peptide 71.0 08/05/18 20:45: Magnesium 1.6 08/06/18 00:38: Hemoglobin A1c 11.4 H 08/06/18 00:38: Troponin I < 0.015 08/06/18 03:25: WBC 6.5, RBC 3.85 L, Hgb 11.7 L, Hct 33.3 L, MCV 86.5, MCH 30.4, MCHC 35.1, RDW 12.4, RDW Differential 38.6, Plt Count 224, MPV 9.8 08/06/18 03:25: Sodium 137, Potassium 3.7, Chloride 106, Carbon Dioxide 23.0, Anion Gap 8, BUN 17, Creatinine 0.91, Est GFR (MDRD) Af Amer 76, Est GFR (MDRD) Non-Af 63, BUN/Creatinine Ratio 18.7, Glucose 240 H, Calcium 7.6 L, Total Bilirubin 0.30, Troponin I 0.021, Triglycerides 130, Cholesterol 132, LDL Cholesterol 58, VLDL Cholesterol 26, HDL Cholesterol 48 Rhythm: EKG: ECHO: Pending Stress Test: Cardiac Cath: PCI: CT Surgery: Holter monitor: EPS: PPM: CXR: Chest CT Scan: Assessment/Plan 1. Chest pain: The patient was found to have nonobstructive coronary disease in March 21, 2018, and it is unlikely in the absence of significant troponin release that she has significant progression of her coronary disease in 6 months time. Her chest pain is most likely result of uncontrolled hypertension superimposed upon uncontrolled hyperglycemia. I am noticed that the patient's antihypertensive medications were not restarted upon admission. The patient was on Cozaar 100 mg a day, spironolactone, hydrochlorothiazide as well. I recommended the patient undergo a repeat 2D echo with Doppler. If the patient's LV function has normalized since her stress-induced cardiomyopathy in February 2018, I would not pursue repeat catheterization or repeat stress testing at this time. If however the patient's LV dysfunction has returned in the form of Takostubos cardiomyopathy, it is clear the patient is either noncompliant with her medications, or her medications are insufficient to keep her from having hypertension induced chest pain. I recommended discontinuation of her spironolactone and hydrochlorothiazide as it did not appear to be adequately controlling the patient's blood pressure and are somewhat cumbersome to take regularly. I recommended substitution with Lasix 40 mg p.o. daily. As the patient's heart rate is well controlled on long-acting metoprolol, we will continue this medication at 25 mg a day. In addition I recommend breaking up her losartan to 50 mg p.o. twice daily to provide better coverage throughout the day, adding Imdur 30 mg p.o. daily and titrating up from there for antihypertensive and and coronary vasodilatation. Would recommend ambulating the patient on these medications to determine if her blood pressure elevates and if so we will contact right upper dur accordingly. I would also recommend continuing baby aspirin and Plavix given her recent non-ST elevation microinfarction less than 1 year ago as a result of stress-induced cardiomyopathy. Patient denies that she has had any significant stressors in the last several days to precipitate another episode of stress-induced cardiomyopathy. 2. Hyperlipidemia: Given the patient's mild nonobstructive coronary disease recommend continuing Pravachol therapy. 3. Thank you very much for the opportunity to participate in the cardiac care of your patient. If the patient's echocardiogram shows normal LV function, no stress test would be indicated, no repeat catheterization indicated, and if her blood pressure is optimized she may be discharged home either later today or tomorrow morning. Consultation time took place between 730 and 8 AM. Code Visit Inpatient E&M: 31098 Init Hosp L2
--- NOTE | 2018-08-06 09:15 | CON.PCM_ITS ---
Problem List (1) Chest pain Status: Acute Qualifiers: Chest pain type: unspecified Qualified Code(s): R07.9 - Chest pain, unspecified (2) HLD (hyperlipidemia) Status: Chronic Qualifiers: Hyperlipidemia type: unspecified Qualified Code(s): E78.5 - Hyperlipidemia, unspecified (3) Atherosclerotic heart disease of [place] coronary artery with other forms of angina pectoris Status: Chronic Comment: NSTEMI, nonobstructive CAD per cath done 03/21/[address] Diaz: mid RCA ,30% stenosis, remaining coronaries normal, Takotsubo CMP per echo, EF 10-15%. (4) Takotsubo cardiomyopathy Status: Chronic Comment: EF 10-15% per echo Reason for Consult Date of Consultation: 08/06/18 Reason for Consultation: Chest pain, history of Takostubos cardiomyopathy, nonobstructive coronary disease, hypertension, hypercholesterolemia, History of Present Illness: The patient is a 82 year old F, known to in, who presented in February 2018 with unstable angina, chest pain, and was found to have a small non-ST elevation myocardial infarction. She underwent diagnostic coronary angiogram by in which demonstrated mild nonobstructive coronary disease of her LAD, circumflex and right coronary artery. She was found to have stress-induced cardiomyopathy, and was treated with beta-blockers, baby aspirin and Plavix. No stenting was recommended or performed at that time. The patient has been doing well up until Wednesday morning around 3 AM when she was awoken with severe substernal chest pain which was relieved with sublingual nitroglycerin x1. She went back to sleep and awoke again about 4:15 AM with recurrent substernal chest pain again relieved with some lingual nitroglycerin. Patient woke up and developed recurrent chest pain symptoms precipitating a visit to the [facility] ER. In the ER her EKG demonstrated normal sinus rhythm with baseline left bundle branch block, no acute changes. She ruled out for myocardial infarction with negative troponins x3. Of note the patient was found to be profoundly hypertensive with blood pressures in the 180s to 200s during her chest pain symptoms. She reports that she has been compliant with her medications although her hemoglobin A1c is above 11, and her sugars when she came in were above 400. Prior to this and since February she has had no exertional chest pain, angina, or shortness of breath. She denies any precipitating stressors. She declines stress testing at this time given her recent catheterization. [] Past Medical History Allergies/Adverse Reactions: Allergies amlodipine besylate [From Norvasc] Allergy (Verified 08/06/18 00:11) Rash cephalexin monohydrate [From Keflex] Allergy (Verified 08/06/18 00:11) Hives streptomycin [Streptomycin] Allergy (Verified 08/06/18 00:11) Hives Sulfa (Sulfonamide Antibiotics) Allergy (Verified 08/06/18 00:11) Hives Home Medications: Ambulatory Orders Medication Instructions Recorded Brimonidine Tartrate/Timolol 1 drp EACH EYE BID 07/23/16 [Combigan 0.2%-0.5% Eye Drops] Hydrochlorothiazide [Hctz] 25 mg PO QODAY 07/23/16 Nitroglycerin 0.4 mg SL Q5M PRN 07/23/16 Potassium Chloride 20 meq PO DAILY 07/23/16 Spironolactone [Aldactone] 25 mg PO QODAY 07/23/16 aspirin 81 mg tablet,delayed 81 mg PO DAILY 04/12/18 release metoprolol succinate ER 25 mg 25 mg PO DAILY #30 tab 05/16/18 tablet,extended release 24 hr levothyroxine 25 mcg tablet 25 mcg PO DAILY 06/28/18 losartan 100 mg tablet 100 mg PO DAILY #90 tab 06/28/18 pravastatin 40 mg tablet 40 mg PO QHS #90 tab 06/28/18 Past Medical History (Chronic Problems): Chronic Problems (Last Updated 06/30/18 @ 17:01 by JIMBO Allred) HLD (hyperlipidemia) (Chronic) Hypothyroidism (Chronic) Diabetes mellitus, type II (Chronic) Atherosclerotic heart disease of [place] coronary artery with other forms of angina pectoris (Chronic 03/21/18) NSTEMI, nonobstructive CAD per cath done 03/21/[address] Diaz: mid RCA ,30% stenosis, remaining coronaries normal, Takotsubo CMP per echo, EF 10- 15%. Takotsubo cardiomyopathy (Chronic 03/21/18) EF 10-15% per echo Non-STEMI (non-ST elevated myocardial infarction) (Chronic 03/21/18) Surgical History: cataract, cholecystectomy, hysterectomy, - - Foot surgery, breast lumpectomy Psychiatric History: No pertinent psych hx MANAGER TITLE History: No pertinent MANAGER TITLE history - *Family History Maternal Family History: Family History (Last Reviewed 06/28/18 @ 15:08 by Noelle Figueroa) Father Heart disease Mother Breast cancer Sister Heart disease History Items: Cancer - Breast cancer Paternal Family History: Family History (Last Reviewed 06/28/18 @ 15:08 by Noelle Figueroa) Father Heart disease Mother Breast cancer Sister Heart disease History Items: Heart Disease - heart failure, No pertinent history Lives: Alone Smoking Status: Never smoker Tobacco Use: Non-smoker Alcohol: None Drugs: None Review of Systems - Review of Systems General: Denies: Fever, Night Sweats, Fatigue Cardiovascular: Reports: Chest Discomfort, Chest Discomfort at Rest. Denies: Shortness of Breath, Orthopnea, PND, Peripheral Edema, Palpitations, Lightheadedness, Dizziness, Near Syncope, Syncope Respiratory: Denies: Cough, Sputum Production, Hemoptysis Gastrointestinal: Denies: Hematemesis, Hematochezia, Melena Genitourinary: Denies: Dysuria, Hematuria Skin: Denies: Rash Subjectve: Patient resting comfortably, no acute distress. Objective: Vital Signs Temp Pulse Resp BP Pulse Ox 98.2 F 64 16 157/74 H 95 08/06/18 08:30 08/06/18 08:30 08/06/18 08:30 08/06/18 09:08 08/06/18 08:30 Oxygen Flow Rate (L/min) 2 Oxygen Delivery Method Room Air Weight: 148 lb 2.41 oz Body Mass Index (BMI) 26.2 Finger Stick Blood Glucose 96 Intake and Output for Last 24 Hours 08/04/18 08/05/18 08/06/18 23:59 23:59 23:59 Intake Total 439 / 439 Balance 439 / 439 General: Awake, Alert, Oriented x 3 HEENT: PERRL, EOMI, Sclera Non Icteric Neck: Supple, Good ROM, No Lymph Node Enlargement Lungs: Clear to auscultation Cardiovascular: Regular Rhythm, Normal S1, Normal S2, No Murmurs, No Rubs, No Gallops Vascular: No Carotid Bruits, Normal Femoral Pulses, Normal Radial Pulses, Normal Dorsalis Pedal Pulse, Normal Posterior Tibial Pulses Abdomen: Bowel Sounds Present, Soft, Non Tender, No HSM, No Organomegaly Extremities: No Cyanosis, No Clubbing, No edema Neurological: No Focal Motor or Sensory Deficit 08/05/18 20:45: WBC 5.8, RBC 4.20, Hgb 12.9, Hct 36.9 L, MCV 87.9, MCH 30.7, MCHC 35.0, RDW 12.9, RDW Differential 41.3, Plt Count 238, MPV 9.7, Immature Gran % (Auto) 0.200, Neut % (Auto) 43.0 L, Lymph % (Auto) 47.8 H, [place] % (Auto) 7.1, Eos % (Auto) 1.6, Baso % (Auto) 0.3, Absolute Neuts (auto) 2.5, Total Counted Not Reportable 08/05/18 20:45: PT 13.7, INR 1.1, APTT 26.9 08/05/18 20:45: Sodium 132 L, Potassium 4.2, Chloride 100, Carbon Dioxide 22.0, Anion Gap 10, BUN 21 H, Creatinine 1.40 H, Est GFR (MDRD) Af Amer 46 L, Est GFR (MDRD) Non-Af 38 L, BUN/Creatinine Ratio 15.0, Glucose 456 H*, Calcium 8.6, Troponin I < 0.015 08/05/18 20:45: B-Natriuretic Peptide 71.0 08/05/18 20:45: Magnesium 1.6 08/06/18 00:38: Hemoglobin A1c 11.4 H 08/06/18 00:38: Troponin I < 0.015 08/06/18 03:25: WBC 6.5, RBC 3.85 L, Hgb 11.7 L, Hct 33.3 L, MCV 86.5, MCH 30.4, MCHC 35.1, RDW 12.4, RDW Differential 38.6, Plt Count 224, MPV 9.8 08/06/18 03:25: Sodium 137, Potassium 3.7, Chloride 106, Carbon Dioxide 23.0, Anion Gap 8, BUN 17, Creatinine 0.91, Est GFR (MDRD) Af Amer 76, Est GFR (MDRD) Non-Af 63, BUN/Creatinine Ratio 18.7, Glucose 240 H, Calcium 7.6 L, Total Bilirubin 0.30, Troponin I 0.021, Triglycerides 130, Cholesterol 132, LDL Cholesterol 58, VLDL Cholesterol 26, HDL Cholesterol 48 Rhythm: EKG: ECHO: Pending Stress Test: Cardiac Cath: PCI: CT Surgery: Holter monitor: EPS: PPM: CXR: Chest CT Scan: Assessment/Plan 1. Chest pain: The patient was found to have nonobstructive coronary disease in March 21, 2018, and it is unlikely in the absence of significant troponin release that she has significant progression of her coronary disease in 6 months time. Her chest pain is most likely result of uncontrolled hypertension superimposed upon uncontrolled hyperglycemia. I am noticed that the patient's antihypertensive medications were not restarted upon admission. The patient was on Cozaar 100 mg a day, spironolactone, hydrochlorothiazide as well. I recommended the patient undergo a repeat 2D echo with Doppler. If the patie nt's LV function has normalized since her stress-induced cardiomyopathy in February 2018, I would not pursue repeat catheterization or repeat stress testing at this time. If however the patient's LV dysfunction has returned in the form of Takostubos cardiomyopathy, it is clear the patient is either noncompliant with her medications, or her medications are insufficient to keep her from having hypertension induced chest pain. I recommended discontinuation of her spironolactone and hydrochlorothiazide as it did not appear to be adequately controlling the patient's blood pressure and are somewhat cumbersome to take regularly. I recommended substitution with Lasix 40 mg p.o. daily. As the patient's heart rate is well controlled on long-acting metoprolol, we will continue this medication at 25 mg a day. In addition I recommend breaking up her losartan to 50 mg p.o. twice daily to provide better coverage throughout the day, adding Imdur 30 mg p.o. daily and titrating up from there for antihypertensive and and coronary vasodilatation. Would recommend ambulating the patient on these medications to determine if her blood pressure elevates and if so we will contact right upper dur accordingly. I would also recommend continuing baby aspirin and Plavix given her recent non- ST elevation microinfarction less than 1 year ago as a result of stress-induced cardiomyopathy. Patient denies that she has had any significant stressors in the last several days to precipitate another episode of stress-induced cardiomyopathy. 2. Hyperlipidemia: Given the patient's mild nonobstructive coronary disease recommend continuing Pravachol therapy. 3. Thank you very much for the opportunity to participate in the cardiac care of your patient. If the patient's echocardiogram shows normal LV function, no stress test would be indicated, no repeat catheterization indicated, and if her blood pressure is optimized she may be discharged home either later today or tomorrow morning. Consultation time took place between 730 and 8 AM. Code Visit Inpatient E&M: 61145 Init Hosp L2
[2018-08-06] MEDS: Acetaminophen 325 MG Tablet 650 MG PO (09:40)
[2018-08-06] MEDS: Timolol 0.5% 5ML OPTH.BTL 1 DRP EACH EYE ×2 (10:33→21:14)
[2018-08-06] MEDS: Losartan Potassium 50 MG Tablet PO ×2 (10:33→21:13)
[2018-08-06] MEDS: BRIMONIDINE 0.2% 5ML BOTTLE 1 DRP EACH EYE ×2 (10:33→21:14)
[2018-08-06] MEDS: Metoprolol(XL)Succ 25 MG Tablet PO (11:18)
[2018-08-06] MEDS: Isosorbide Mononitrate 30 MG Tablet PO (11:19)
[2018-08-06] MEDS: Clopidogrel Bisulfate 75 MG Tablet PO (11:19)
[2018-08-06] MEDS: Furosemide 40 MG Tablet PO (11:19)
[2018-08-06] MEDS: Aspirin E.C. 81 MG Tablet PO (11:19)
[2018-08-06 11:35] LABS: Bedside Glucose 266 mg/dL (70-110)
--- NOTE | 2018-08-06 11:54 | PCM.PN.HOSP ---
Patient Problems: Active and Suspected Problems (Last Updated 06/30/18 @ 17:01 by JIMBO Allred) Chest pain (Acute) Subjective: This 82-year-old female was admitted for chest pain with a history of non-STEMI with nonobstructive coronary artery disease on February 2018, Takotsubo cardiomyopathy with EF 10 to 15% as per Dr. Diaz Patient said chest pain with radiation to back 10/10 intensity with mild shortness of breath, nausea and diaphoresis. 1 Vitals/I&O's: Vital Signs Temp Pulse Resp BP Pulse Ox 98.2 F 68 16 157/74 H 95 08/06/18 08:30 08/06/18 11:18 08/06/18 09:14 08/06/18 09:08 08/06/18 09:14 Oxygen Flow Rate (L/min) 2 Oxygen Delivery Method Room Air Weight: 148 lb 2.41 oz Body Mass Index (BMI) 26.2 Finger Stick Blood Glucose 96 Intake and Output for Last 24 Hours 08/04/18 08/05/18 08/06/18 23:59 23:59 23:59 Intake Total 439 / 439 Balance 439 / 439 General: Alert, Oriented x3, Cooperative HEENT: Atraumatic, PERRLA, EOMI, Normocephalic Neck: Supple, No JVD, Negative Carotid Bruits Lungs: Clear to auscultation, No rhonchi, No wheeze, No rales, Diminished Cardiovascular: Regular rate, Normal S1, Normal S2, Murmur - Systolic murmur present over left lower sternal border and aortic region Abdomen: Bowel Sounds Present, Soft, Non Tender Extremities: No edema, Capillary Refill Less than 3 Seconds Skin: No rashes, No breakdown Musculoskeletal: No Tenderness to Palpation of Joints or Extremities Neurological: Cranial nerves II-XII grossly intact Psych/Mental Status: Normal Affect, Appropriate Laboratory Results 08/05/18 20:45: WBC 5.8, RBC 4.20, Hgb 12.9, Hct 36.9 L, MCV 87.9, MCH 30.7, MCHC 35.0, RDW 12.9, RDW Differential 41.3, Plt Count 238, MPV 9.7, Immature Gran % (Auto) 0.200, Neut % (Auto) 43.0 L, Lymph % (Auto) 47.8 H, [place] % (Auto) 7.1, Eos % (Auto) 1.6, Baso % (Auto) 0.3, Absolute Neuts (auto) 2.5, Absolute Lymphs (auto) 2.77, Total Counted Not Reportable 08/05/18 20:45: PT 13.7, INR 1.1, APTT 26.9 08/05/18 20:45: Sodium 132 L, Potassium 4.2, Chloride 100, Carbon Dioxide 22.0, Anion Gap 10, BUN 21 H, Creatinine 1.40 H, Estim Creat Clear Calc 25.19, Est GFR (MDRD) Af Amer 46 L, Est GFR (MDRD) Non-Af 38 L, BUN/Creatinine Ratio 15.0, Glucose 456 H*, Calcium 8.6, Troponin I < 0.015 08/05/18 20:45: B-Natriuretic Peptide 71.0 08/05/18 20:45: Magnesium 1.6 08/06/18 00:38: Hemoglobin A1c 11.4 H 08/06/18 00:38: Troponin I < 0.015 08/06/18 03:25: WBC 6.5, RBC 3.85 L, Hgb 11.7 L, Hct 33.3 L, MCV 86.5, MCH 30.4, MCHC 35.1, RDW 12.4, RDW Differential 38.6, Plt Count 224, MPV 9.8 08/06/18 03:25: Sodium 137, Potassium 3.7, Chloride 106, Carbon Dioxide 23.0, Anion Gap 8, BUN 17, Creatinine 0.91, Estim Creat Clear Calc 38.75, Est GFR (MDRD) Af Amer 76, Est GFR (MDRD) Non-Af 63, BUN/Creatinine Ratio 18.7, Glucose 240 H, Calcium 7.6 L, Total Bilirubin 0.30, AST 16, ALT 23, Alkaline Phosphatase 41 L, Troponin I 0.021, Total Protein 6.3 L, Albumin 2.8 L, Globulin 3.5, Albumin/Globulin Ratio 0.8 L, Triglycerides 130, Cholesterol 132, LDL Cholesterol 58, VLDL Cholesterol 26, HDL Cholesterol 48 08/06/18 06:43: POC Glucose 216 H 08/06/18 11:13: POC Glucose 266 H Current Medications Acetaminophen (Tylenol) 650 mg PO Q6H PRN PRN PRN Reason: Non-cardiac pain (mod-severe) Last Admin: 08/06/18 09:40 Dose: 325 mg Hydrocodone Bitart/Acetaminophen ([place] 5mg-325mg) 1 - 2 tablet PO Q6H PRN PRN PRN Reason: MOD-SEVERE PAIN (4-10/10) Al Hydroxide/Mg Hydroxide (Mylanta Ii) 15 - 30 ml PO Q4H PRN PRN PRN Reason: INDIGESTION Albuterol Sulfate (Ventolin Aerosols) 2.5 mg INHALATION Q2H PRN PRN PRN Reason: dyspnea, wheezing Aspirin (Ecotrin) 81 mg PO DAILY [facility] Last Admin: 08/06/18 11:19 Dose: 81 mg Brimonidine Tartrate (Brimonidine 0.2% 5ml Bottle) 1 drop EACH EYE BID [facility] Last Admin: 08/06/18 10:33 Dose: 1 drop Clopidogrel Bisulfate (Plavix) 75 mg PO DAILY [facility] Last Admin: 08/06/18 11:19 Dose: 75 mg Dextrose (D50w Syringe) 0 gm IV X1 PRN; Protocol PRN Reason: Hypoglycemia Furosemide (Lasix) 40 mg PO DAILY [facility] Last Admin: 08/06/18 11:19 Dose: 40 mg Glucagon () 1 mg IM .X1 PRN PRN Reason: Hypoglycemia Heparin Sodium (Porcine) (Heparin Na) 5,000 unit SC Q12 [facility] Last Admin: 08/06/18 11:19 Dose: Not Given Hydralazine HCl (Apresoline Iv) 10 mg IV Q4H PRN PRN PRN Reason: SBP > 160 Last Admin: 08/06/18 08:29 Dose: 10 mg Sodium Chloride () 1,000 mls @ 100 mls/hr IV .Q10H [facility] Last Admin: 08/06/18 11:26 Dose: 100 mls/hr Insulin Human Lispro (Humalog Kwikpen (Bkc)) 0 unit SC ACHS [facility]; Protocol Last Admin: 08/06/18 11:21 Dose: 3 units Isosorbide Mononitrate (Imdur) 30 mg PO DAILY [facility] Last Admin: 08/06/18 11:19 Dose: 30 mg Levothyroxine Sodium (Synthroid) 25 mcg PO DAILY@0600 [facility] Last Admin: 05/11/19 06:14 Dose: Not Given Losartan Potassium (Cozaar) 50 mg PO BID [facility] Last Admin: 08/06/18 10:33 Dose: 50 mg Melatonin (Melatonin) 3 mg PO QHS PRN PRN PRN Reason: INSOMNIA Metoprolol Succinate (Toprol Xl (Beta Savage)) 25 mg PO DAILY [facility] Last Admin: 08/06/18 11:18 Dose: 25 mg Morphine Sulfate () 1 - 2 mg IV Q4H PRN PRN PRN Reason: PAIN Nitroglycerin (Nitrostat) 0.4 mg SUBLINGUAL Q5M PRN PRN Reason: CARDIAC/CHEST PAIN Ondansetron HCl (Zofran) 4 mg IV Q8H PRN PRN PRN Reason: NAUSEA/VOMITING Potassium Chloride (K-Dur) 20 meq PO DAILY [facility] Last Admin: 08/06/18 11:20 Dose: 20 meq Pravastatin Sodium (Pravachol) 40 mg PO QHS [facility] Sodium Chloride () 5 - 15 ml IV UD PRN PRN Reason: SALINE FLUSH Last Admin: 08/06/18 08:32 Dose: 10 ml Timolol Maleate (Timoptic) 1 drop EACH EYE BID [facility] Last Admin: 08/06/18 10:33 Dose: 1 drop Medical Necessity - Tobacco Use Smoking Status: Never smoker Tobacco Use: Non-smoker Assessment/Plan All Active Problems (Last Updated 06/30/18 @ 17:01 by JIMBO Allred) Chest pain (Acute) Chest pain (Resolved) LV dysfunction (Resolved) This 82-year-old female with a history of non-STEMI with nonobstructive coronary artery disease on February 2018, Takotsubo cardiomyopathy with EF 10 to 20% was admitted for: With radiation to back 10/10 intensity with mild shortness of breath, nausea and diaphoresis. 1 Atypical chest pain with history of non-STEMI, stress-induced cardiomyopathy: Patient is being admitted in PCU. Her serial troponin enzymes are negative. She had diagnostic cardiac cath in February 2018 which showed mild nonobstructive coronary artery disease of her LAD, circumflex and RCA. She was found to have a stress-induced cardiomyopathy and is on baby aspirin, Plavix, metoprolol succinate 25 mg daily. Patient was seen by Dr. Diaz and discussed. Since her chest pain might be result of uncontrolled hypertension. 2D echo was done in the morning. He recommended discontinuation of hydrochlorothiazide and spironolactone and started on Lasix 40 mg daily. On losartan 50 mg twice daily, Imdur 30 mg daily. (2) Acute kidney injury, most probably related to prerenal/medications: CRISTI resolved. Admission BUN/Cr 21/1.40, prior baseline creatinine noted to be 0.8. Repeat labs in the morning shows BUN/creatinine 17/0.9, that is her baseline. Electrolytes within normal limits. Low albumin 2.8. (3) cavities mellitus type II: Blood sugars elevated into 50s. A1c 11.4. Accu-Chek S images and cover with NovoLog sliding scale long-acting insulin. 4 Hypertension: Pressure is high, 200/126 and at the time of admission was 190/134: Needs aggressive management of hypertension. Medications as mentioned above (5) Hyperlipidemia: Continue home statin regimen. On Pravachol. Lipid profile: Triglyceride 130, LDL 58, HDL 48, total cholesterol 132 (6) Hypothyroidism: Continue home synthroid regimen. (7) Takotsubo Cardiomyopathy: Evaluation w/ recent NSTEMI, noted EF 10-15%, maintained on aspirin, statin, spironolactone, losartan, metoprolol. (8) DVT Prophylaxis: SCDs, heparin. Clinical Impression(s) from Imaging Studies Chest X-Ray 08/05/18 21:13 IMPRESSION: No acute cardiopulmonary disease or interval change. Code Visit Inpatient E&M: 73547 Subs Hosp L3
--- NOTE | 2018-08-06 11:59 | PN_ITS ---
Patient Problems: Active and Suspected Problems (Last Updated 06/30/18 @ 17:01 by JIMBO Allred) Chest pain (Acute) Subjective: This 82-year-old female was admitted for chest pain with a history of non-STEMI with nonobstructive coronary artery disease on February 2018, Takotsubo cardiomyopathy with EF 10 to 15% as per Dr. Diaz Patient said chest pain with radiation to back 10/10 intensity with mild shortness of breath, nausea and diaphoresis. 1 Vitals/I&O's: Vital Signs Temp Pulse Resp BP Pulse Ox 98.2 F 68 16 157/74 H 95 08/06/18 08:30 08/06/18 11:18 08/06/18 09:14 08/06/18 09:08 08/06/18 09:14 Oxygen Flow Rate (L/min) 2 Oxygen Delivery Method Room Air Weight: 148 lb 2.41 oz Body Mass Index (BMI) 26.2 Finger Stick Blood Glucose 96 Intake and Output for Last 24 Hours 08/04/18 08/05/18 08/06/18 23:59 23:59 23:59 Intake Total 439 / 439 Balance 439 / 439 General: Alert, Oriented x3, Cooperative HEENT: Atraumatic, PERRLA, EOMI, Normocephalic Neck: Supple, No JVD, Negative Carotid Bruits Lungs: Clear to auscultation, No rhonchi, No wheeze, No rales, Diminished Cardiovascular: Regular rate, Normal S1, Normal S2, Murmur - Systolic murmur present over left lower sternal border and aortic region Abdomen: Bowel Sounds Present, Soft, Non Tender Extremities: No edema, Capillary Refill Less than 3 Seconds Skin: No rashes, No breakdown Musculoskeletal: No Tenderness to Palpation of Joints or Extremities Neurological: Cranial nerves II-XII grossly intact Psych/Mental Status: Normal Affect, Appropriate Laboratory Results 08/05/18 20:45: WBC 5.8, RBC 4.20, Hgb 12.9, Hct 36.9 L, MCV 87.9, MCH 30.7, MCHC 35.0, RDW 12.9, RDW Differential 41.3, Plt Count 238, MPV 9.7, Immature Gran % (Auto) 0.200, Neut % (Auto) 43.0 L, Lymph % (Auto) 47.8 H, [place] % (Auto) 7.1, Eos % (Auto) 1.6, Baso % (Auto) 0.3, Absolute Neuts (auto) 2.5, Absolute Lymphs (auto) 2.77, Total Counted Not Reportable 08/05/18 20:45: PT 13.7, INR 1.1, APTT 26.9 08/05/18 20:45: Sodium 132 L, Potassium 4.2, Chloride 100, Carbon Dioxide 22.0, Anion Gap 10, BUN 21 H, Creatinine 1.40 H, Estim Creat Clear Calc 25.19, Est GFR (MDRD) Af Amer 46 L, Est GFR (MDRD) Non-Af 38 L, BUN/Creatinine Ratio 15.0, Glucose 456 H*, Calcium 8.6, Troponin I < 0.015 08/05/18 20:45: B-Natriuretic Peptide 71.0 08/05/18 20:45: Magnesium 1.6 08/06/18 00:38: Hemoglobin A1c 11.4 H 08/06/18 00:38: Troponin I < 0.015 08/06/18 03:25: WBC 6.5, RBC 3.85 L, Hgb 11.7 L, Hct 33.3 L, MCV 86.5, MCH 30.4, MCHC 35.1, RDW 12.4, RDW Differential 38.6, Plt Count 224, MPV 9.8 08/06/18 03:25: Sodium 137, Potassium 3.7, Chloride 106, Carbon Dioxide 23.0, Anion Gap 8, BUN 17, Creatinine 0.91, Estim Creat Clear Calc 38.75, Est GFR (MDRD) Af Amer 76, Est GFR (MDRD) Non-Af 63, BUN/Creatinine Ratio 18.7, Glucose 240 H, Calcium 7.6 L, Total Bilirubin 0.30, AST 16, ALT 23, Alkaline Phosphatase 41 L, Troponin I 0.021, Total Protein 6.3 L, Albumin 2.8 L, Globulin 3.5, Albumin/Globulin Ratio 0.8 L, Triglycerides 130, Cholesterol 132, LDL Cholesterol 58, VLDL Cholesterol 26, HDL Cholesterol 48 08/06/18 06:43: POC Glucose 216 H 08/06/18 11:13: POC Glucose 266 H Current Medications Acetaminophen (Tylenol) 650 mg PO Q6H PRN PRN PRN Reason: Non-cardiac pain (mod-severe) Last Admin: 08/06/18 09:40 Dose: 325 mg Hydrocodone Bitart/Acetaminophen ([place] 5mg-325mg) 1 - 2 tablet PO Q6H PRN PRN PRN Reason: MOD-SEVERE PAIN (4-10/10) Al Hydroxide/Mg Hydroxide (Mylanta Ii) 15 - 30 ml PO Q4H PRN PRN PRN Reason: INDIGESTION Albuterol Sulfate (Ventolin Aerosols) 2.5 mg INHALATION Q2H PRN PRN PRN Reason: dyspnea, wheezing Aspirin (Ecotrin) 81 mg PO DAILY [facility] Last Admin: 08/06/18 11:19 Dose: 81 mg Brimonidine Tartrate (Brimonidine 0.2% 5ml Bottle) 1 drop EACH EYE BID [facility] Last Admin: 08/06/18 10:33 Dose: 1 drop Clopidogrel Bisulfate (Plavix) 75 mg PO DAILY [facility] Last Admin: 08/06/18 11:19 Dose: 75 mg Dextrose (D50w Syringe) 0 gm IV X1 PRN; Protocol PRN Reason: Hypoglycemia Furosemide (Lasix) 40 mg PO DAILY [facility] Last Admin: 08/06/18 11:19 Dose: 40 mg Glucagon () 1 mg IM .X1 PRN PRN Reason: Hypoglycemia Heparin Sodium (Porcine) (Heparin Na) 5,000 unit SC Q12 [facility] Last Admin: 08/06/18 11:19 Dose: Not Given Hydralazine HCl (Apresoline Iv) 10 mg IV Q4H PRN PRN PRN Reason: SBP > 160 Last Admin: 08/06/18 08:29 Dose: 10 mg Sodium Chloride () 1,000 mls @ 100 mls/hr IV .Q10H [facility] Last Admin: 08/06/18 11:26 Dose: 100 mls/hr Insulin Human Lispro (Humalog Kwikpen (Bkc)) 0 unit SC ACHS [facility]; Protocol Last Admin: 08/06/18 11:21 Dose: 3 units Isosorbide Mononitrate (Imdur) 30 mg PO DAILY [facility] Last Admin: 08/06/18 11:19 Dose: 30 mg Levothyroxine Sodium (Synthroid) 25 mcg PO DAILY@0600 [facility] Last Admin: 05/11/19 06:14 Dose: Not Given Losartan Potassium (Cozaar) 50 mg PO BID [facility] Last Admin: 08/06/18 10:33 Dose: 50 mg Melatonin (Melatonin) 3 mg PO QHS PRN PRN PRN Reason: INSOMNIA Metoprolol Succinate (Toprol Xl (Beta Savage)) 25 mg PO DAILY [facility] Last Admin: 08/06/18 11:18 Dose: 25 mg Morphine Sulfate () 1 - 2 mg IV Q4H PRN PRN PRN Reason: PAIN Nitroglycerin (Nitrostat) 0.4 mg SUBLINGUAL Q5M PRN PRN Reason: CARDIAC/CHEST PAIN Ondansetron HCl (Zofran) 4 mg IV Q8H PRN PRN PRN Reason: NAUSEA/VOMITING Potassium Chloride (K-Dur) 20 meq PO DAILY [facility] Last Admin: 08/06/18 11:20 Dose: 20 meq Pravastatin Sodium (Pravachol) 40 mg PO QHS [facility] Sodium Chloride () 5 - 15 ml IV UD PRN PRN Reason: SALINE FLUSH Last Admin: 08/06/18 08:32 Dose: 10 ml Timolol Maleate (Timoptic) 1 drop EACH EYE BID [facility] Last Admin: 08/06/18 10:33 Dose: 1 drop Medical Necessity - Tobacco Use Smoking Status: Never smoker Tobacco Use: Non-smoker Assessment/Plan All Active Problems (Last Updated 06/30/18 @ 17:01 by JIMBO Allred) Chest pain (Acute) Chest pain (Resolved) LV dysfunction (Resolved) This 82-year-old female with a history of non-STEMI with nonobstructive coronary artery disease on February 2018, Takotsubo cardiomyopathy with EF 10 to 20% was admitted for: With radiation to back 10/10 intensity with mild shortness of breath, nausea and diaphoresis. 1 Atypical chest pain with history of non-STEMI, stress-induced cardiomyopathy: Patient is being admitted in PCU. Her serial troponin enzymes are negative. She had diagnostic cardiac cath in February 2018 which showed mild nonobstructive coronary artery disease of her LAD, circumflex and RCA. She was found to have a stress-induced cardiomyopathy and is on baby aspirin, Plavix, metoprolol succinate 25 mg daily. Patient was seen by Dr. Diaz and discussed. Since her chest pain might be result of uncontrolled hypertension. 2D echo was done in the morning. He recommended discontinuation of hydrochlorothiazide and spironolactone and started on Lasix 40 mg daily. On losartan 50 mg twice daily, Imdur 30 mg daily. (2) Acute kidney injury, most probably related to prerenal/medications: CRISTI resolved. Admission BUN/Cr 21/1.40, prior baseline creatinine noted to be 0.8. Repeat labs in the morning shows BUN/creatinine 17/0.9, that is her baseline. Electrolytes within normal limits. Low albumin 2.8. (3) cavities mellitus type II: Blood sugars elevated into 50s. A1c 11.4. Accu- Chek S images and cover with NovoLog sliding scale long-acting insulin. 4 Hypertension: Pressure is high, 200/126 and at the time of admission was 190/134: Needs aggressive management of hypertension. Medications as mentioned above (5) Hyperlipidemia: Continue home statin regimen. On Pravachol. Lipid profile: Triglyceride 130, LDL 58, HDL 48, total cholesterol 132 (6) Hypothyroidism: Continue home synthroid regimen. (7) Takotsubo Cardiomyopathy: Evaluation w/ recent NSTEMI, noted EF 10-15%, maintained on aspirin, statin, spironolactone, losartan, metoprolol. (8) DVT Prophylaxis: SCDs, heparin. Clinical Impression(s) from Imaging Studies Chest X-Ray 08/05/18 21:13 IMPRESSION: No acute cardiopulmonary disease or interval change. Code Visit Inpatient E&M: 24289 Subs Hosp L3
--- NOTE | 2018-08-06 12:46 | CM.UR ---
RN CM Assessment Presentation: Sepsis, pyelonephritis. Intro role of CM and purpose of RN CM assessment to patient and daughter in room. Demographics, PCP and Pharmacy verified. PCP: Shantanu Specialist: Joe Preferred Pharmacy: [facility] ([place]) Insurance: [employer] system master supplement. Prescription Benefit: yes [employer] part D LNOK: DaughterSelma Spencer Living Arrangements: Lives in one story home, states she is independent in ADL, able to household activities. Mows her own grass. Transportation: Children drive her when needed. Denies transportation issues. DME: Walker, cane. Denies needing any additional DME at this time. HHC/SNF: none Patient DC goals: Home Advance Directives: Living will and DPOA for healthcare are both on file. DPOA is daughter, Bebo Spencer. Daughter states they have been trying to make plans with the patient for the future. Deciding what to do, when she declines however patient refuses to discuss it. Encouraged the patient to talk to her family. Explained that it is important. States she won't live with her children. I again encouraged her the importance of planning for the future. DC PLAN: anticipate home. No needs anticipated. Annette Salazar RN, CCM.
[2018-08-06 16:31] LABS: Bedside Glucose 345 mg/dL (70-110)
[2018-08-06] MEDS: Pravastatin 40 MG Tablet PO (21:13)
[2018-08-06 21:50] LABS: Bedside Glucose 280 mg/dL (70-110)
[2018-08-07] VITALS (8 sets, daily range): BP systolic 98–158; BP diastolic 56–62; PULSE 63–72; RESP 15–16; TEMP 36.6–36.9; O2SAT 93–94
[2018-08-07] MEDS: Levothyroxine 25 MCG TABLET PO (07:04)
[2018-08-07] MEDS: Insulin Lispro 100 UNIT/ML INSULN.PEN SC (07:04)
[2018-08-07 07:11] LABS: Bedside Glucose 195 mg/dL (70-110)
[2018-08-07] MEDS: Metoprolol(XL)Succ 25 MG Tablet PO (09:38)
[2018-08-07] MEDS: Clopidogrel Bisulfate 75 MG Tablet PO (09:38)
[2018-08-07] MEDS: Aspirin E.C. 81 MG Tablet PO (09:38)
[2018-08-07] MEDS: Isosorbide Mononitrate 30 MG Tablet PO (09:39)
[2018-08-07] MEDS: Furosemide 40 MG Tablet PO (09:39)
[2018-08-07] MEDS: Losartan Potassium 50 MG Tablet PO (09:39)
[2018-08-07] MEDS: BRIMONIDINE 0.2% 5ML BOTTLE 1 DRP EACH EYE (09:39)
[2018-08-07] MEDS: Timolol 0.5% 5ML OPTH.BTL 1 DRP EACH EYE (09:40)
--- NOTE | 2018-08-07 09:42 | PN.CARD_ITS ---
Subjectve: Patient feeling much better today, blood pressure much better controlled. Telemetry showed normal sinus rhythm with rare PACs. Objective: Vital Signs Temp Pulse Resp BP Pulse Ox 98.5 F 67 16 98/56 L 94 08/07/18 03:26 08/07/18 08:49 08/07/18 08:49 08/07/18 03:26 08/07/18 08:49 Oxygen Flow Rate (L/min) 2 Oxygen Delivery Method Room Air Weight: 148 lb 2.41 oz Body Mass Index (BMI) 26.2 Finger Stick Blood Glucose 96 Intake and Output for Last 24 Hours 08/05/18 08/06/18 08/07/18 23:59 23:59 23:59 Intake Total 1464 / 1464 250 / 250 Balance 1464 / 1464 250 / 250 General: Awake, Alert, Oriented x 3 HEENT: PERRL, EOMI, Sclera Non Icteric Neck: Supple, Good ROM, No Lymph Node Enlargement Lungs: Clear to auscultation Cardiovascular: Regular Rhythm, Normal S1, Normal S2, No Murmurs, No Rubs, No Gallops Vascular: No Carotid Bruits, Normal Femoral Pulses, Normal Radial Pulses, Normal Dorsalis Pedal Pulse, Normal Posterior Tibial Pulses Abdomen: Bowel Sounds Present, Soft, Non Tender, No HSM, No Organomegaly Extremities: No Cyanosis, No Clubbing, No edema Neurological: No Focal Motor or Sensory Deficit Rhythm: EKG: ECHO: Stress Test: Cardiac Cath: PCI: CT Surgery: Holter monitor: EPS: PPM: CXR: Chest CT Scan: Medical Necessity - Tobacco Use Smoking Status: Never smoker Tobacco Use: Non-smoker Assessment/Plan 1. Chest pain: The patient was found to have nonobstructive coronary disease in March 21, 2018, and it is unlikely in the absence of significant troponin release that she has significant progression of her coronary disease in 6 months time. Her chest pain is most likely result of uncontrolled hypertension superimposed upon uncontrolled hyperglycemia. I have noticed that the patient's antihypertensive medications were not restarted upon admission. The patient was on Cozaar 100 mg a day, spironolactone, hydrochlorothiazide as well. Her repeat echocardiogram shows almost complete resolution of her LV dysfunction, with normal LVEF of 65% and an RVSP of 35 mmHg. No repeat stress test or catheterization indicated at this time. I recommended discontinuation of her spironolactone and hydrochlorothiazide as it did not appear to be adequately controlling the patient's blood pressure and are somewhat cumbersome to take regularly. I recommended substitution with Lasix 40 mg p.o. daily. As the patient's heart rate is well controlled on long-acting metoprolol, we will continue this medication at 25 mg a day. In addition I recommend breaking up her losartan to 50 mg p.o. twice daily to provide better coverage throughout the day, adding Imdur 30 mg p.o. daily and titrating up from there for antihypertensive and and coronary vasodilatation. Would recommend ambulating the patient on these medications to determine if her blood pressure elevates and if so we will contact right upper Imdur accordingly. I would also recommend continuing baby aspirin and Plavix given her recent non- ST elevation microinfarction less than 1 year ago as a result of stress-induced cardiomyopathy. Patient denies that she has had any significant stressors in the last several days to precipitate another episode of stress-induced cardiomyopathy. Patient may be discharged home and follow-up with our office in 1 week's time for a blood pressure check. 2. Hyperlipidemia: Given the patient's mild nonobstructive coronary disease recommend continuing Pravachol therapy. 3. Thank you very much for the opportunity to participate in the cardiac care of your patient. Patient may be discharged home and follow-up with Dr. Diaz going forward. Code Visit Inpatient E&M: 66460 Subs Hosp L2
--- NOTE | 2018-08-07 10:12 | DCINST_ITS ---
- Discharge Diagnoses Current Active Problems: Current Active and Chronic Problems (Last Updated 06/30/18 @ 17:01 by JIMBO Allred) Chest pain (Acute) HLD (hyperlipidemia) (Chronic) Hypothyroidism (Chronic) Diabetes mellitus, type II (Chronic) You will use the following diet at home:: Calorie/Carbohydrate Controlled (specify 1200, 1400, etc) - 1800 ADA diet, Cardiac Discharge Activity: May Not Drive Call your doctor if you observe: Fever of 101 or Higher, Inability to urinate, Inability to have a bowel movement, Shortness of breath, Dizziness, Fainting spells, Swelling in the ankles, Chest pain Additional Instructions: Advised BMP in 1 week to check on electrolytes and kidney function on diuretics and antidiabetic medications and follow-up with PCP Allergies/Adverse Reactions: Allergies amlodipine besylate [From Norvasc] Allergy (Verified 08/06/18 00:11) Rash cephalexin monohydrate [From Keflex] Allergy (Verified 08/06/18 00:11) Hives streptomycin [Streptomycin] Allergy (Verified 08/06/18 00:11) Hives Sulfa (Sulfonamide Antibiotics) Allergy (Verified 08/06/18 00:11) Hives Medications to take at Discharge Brimonidine Tartrate/Timolol [Combigan 0.2%-0.5% Eye Drops] 1 drp EACH EYE BID 07/23/16 Nitroglycerin 0.4 mg SL Q5M PRN 07/23/16 Potassium Chloride 20 meq PO DAILY 07/23/16 aspirin 81 mg tablet,delayed release 81 mg PO DAILY 04/12/18 metoprolol succinate ER 25 mg tablet,extended release 24 hr 25 mg PO DAILY #30 tab 05/16/18 levothyroxine 25 mcg tablet 25 mcg PO DAILY 06/28/18 pravastatin 40 mg tablet 40 mg PO QHS #90 tab 06/28/18 Clopidogrel Bisulfate [Plavix] 75 mg PO DAILY #30 tablet 08/07/18 Furosemide [Lasix] 40 mg PO DAILY #30 tablet 08/07/18 Isosorbide Mononitrate [Imdur] 30 mg PO DAILY #30 tablet 08/07/18 Losartan Potassium [Cozaar] 50 mg PO BID #60 tablet 08/07/18 Metformin HCl 500 mg PO BID #30 tablet 08/07/18 glipiZIDE [Glucotrol] 5 mg PO BIDAC #60 tablet 08/07/18 The following prescriptions were given: Clopidogrel Bisulfate [Plavix] 75 mg PO DAILY #30 tablet Furosemide [Lasix] 40 mg PO DAILY #30 tablet glipiZIDE [Glucotrol] 5 mg PO BIDAC #60 tablet Isosorbide Mononitrate [Imdur] 30 mg PO DAILY #30 tablet Losartan Potassium [Cozaar] 50 mg PO BID #60 tablet Metformin HCl 500 mg PO BID #30 tablet Primary Care Physician: Chris Fournier DO [Primary Care Provider] - Please follow up with your Primary Care Physician in: in 1 week Advised Test Results: Test results from this visit will be discussed in further detail at your follow- up appointment, if applicable. BMP in 1 week to check on electrolytes and kidney function Please Follow Up With: Marcus Diaz MD When: as scheduled
--- NOTE | 2018-08-07 10:12 | PCM.DC.SUM ---
Discharge Date and Diagnosis Date of Admission: 08/05/18 Date of Discharge: 08/07/18 - Primary Discharge Diagnosis Active and Suspected Problems (Last Updated 06/30/18 @ 17:01 by JIMBO Allred) Chest pain (Acute) Hypertensive urgency - Secondary Discharge Diagnosis Chronic Problems (Last Updated 06/30/18 @ 17:01 by JIMBO Allred) HLD (hyperlipidemia) (Chronic) Hypothyroidism (Chronic) Diabetes mellitus, type II (Chronic) Atherosclerotic heart disease of [place] coronary artery with other forms of angina pectoris (Chronic 03/21/18) NSTEMI, nonobstructive CAD per cath done 03/21/[address] Diaz: mid RCA ,30% stenosis, remaining coronaries normal, Takotsubo CMP per echo, EF 10-15%. Takotsubo cardiomyopathy (Chronic 03/21/18) EF 10-15% per echo Non-STEMI (non-ST elevated myocardial infarction) (Chronic 03/21/18) Hospital Course and Treatment Operations: None Summary of Care Provided: [] This 82-year-old female with a history of non-STEMI with nonobstructive coronary artery disease on February 2018, Takotsubo cardiomyopathy with EF 10 to 20% was admitted for: With radiation to back 10/10 intensity with mild shortness of breath, nausea and diaphoresis. 1 Atypical chest pain with history of non-STEMI, stress-induced cardiomyopathy: Patient is being admitted in PCU. Her serial troponin enzymes are negative. She had diagnostic cardiac cath in February 2018 which showed mild nonobstructive coronary artery disease of her LAD, circumflex and RCA. She was found to have a stress-induced cardiomyopathy and is on baby aspirin, Plavix, metoprolol succinate 25 mg daily. Patient was seen by Dr. Diaz and discussed. Since her chest pain might be result of uncontrolled hypertension. 2D echo was done reported as EF 65% with septal motion consistent with IVCD. Basal anteroseptal mildly hypokinetic. No significant valvular abnormality except trivial TR, RVSP 35 mmHg. Normal left and right atrium. Normal-sized and systolic function RV. He recommended discontinuation of hydrochlorothiazide and spironolactone and started on Lasix 40 mg daily. On losartan 50 mg twice daily, Imdur 30 mg daily. (2) Acute kidney injury, most probably related to prerenal/medications: CRISTI resolved. Admission BUN/Cr 21/1.40, prior baseline creatinine noted to be 0.8. Repeat labs in the morning shows BUN/creatinine 17/0.9, that is her baseline. Electrolytes within normal limits. Low albumin 2.8. (3) diabetes mellitus type II: Blood sugars elevated into 500s. A1c 11.4. Accu-Chek S images and cover with NovoLog sliding scale long-acting insulin. 4 Hypertension: Pressure is high, 200/126 and at the time of admission was 190/134: Needs aggressive management of hypertension. Medications as mentioned above (5) Hyperlipidemia: Continue home statin regimen. On Pravachol. Lipid profile: Triglyceride 130, LDL 58, HDL 48, total cholesterol 132 (6) Hypothyroidism: Continue home synthroid regimen. (7) Takotsubo Cardiomyopathy: Evaluation w/ recent NSTEMI, noted EF 10-15%, maintained on aspirin, statin, spironolactone, losartan, metoprolol. (8) DVT Prophylaxis: SCDs, heparin. Discharge medication reconciliation done. Discharge follow-up instructions completed. Discharge process discussed with the patient and her daughter and all questions were answered to patient and her daughter's satisfaction.Prescriptions of losartan, MDR, Lasix, KCl, Plavix, metformin and glipizide 5 mg twice daily were sent to pharmacy. Patient new diagnosis of diabetes mellitus type 2 therefore prescription for Metformin and glipizide were sent to PCP. Patient was advised BMP in 1 week and follow with PCP to titrate the dose of Lasix, metformin and glipizide. 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 Total time spent, exact 35 minutes on discharge meds reconciliation, examination, review of imaging and blood test and discussion with the patient on follow-up instructions. Clinical Impression(s) from Imaging Studies Chest X-Ray 08/05/18 21:13 IMPRESSION: No acute cardiopulmonary disease or interval change. 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 Follow-up with sales representative [employer] Musculoskeletal: No Tenderness to Palpation of Joints or Extremities, Arthritic Changes Lymphatic: No Cervical, Supraclavicular, or Inguinal Adenopathy Neurological: Cranial nerves II-XII grossly intact Psych/Mental Status: Normal Affect, Appropriate Vital Signs Temp Pulse Resp BP Pulse Ox 98.5 F 72 16 158/62 H 94 08/07/18 03:26 08/07/18 09:38 08/07/18 08:49 08/07/18 09:38 08/07/18 08:49 Oxygen Flow Rate (L/min) 2 Oxygen Delivery Method Room Air Weight: 148 lb 2.41 oz Body Mass Index (BMI) 26.2 Finger Stick Blood Glucose 96 Intake and Output for Last 24 Hours 08/05/18 08/06/18 08/07/18 23:59 23:59 23:59 Intake Total 1464 / 1464 250 / 250 Balance 1464 / 1464 250 / 250 POC Glucose 08/07/18 08/06/18 08/06/18 07:03 21:03 16:15 POC Glucose 195 H 280 H 345 H 08/06/18 11:13 POC Glucose 266 H Discharge Activity: May Not Drive Call your doctor if you observe: Fever of 101 or Higher, Inability to urinate, Inability to have a bowel movement, Shortness of breath, Dizziness, Fainting spells, Swelling in the ankles, Chest pain Home Medications: Medications to take at Discharge Brimonidine Tartrate/Timolol [Combigan 0.2%-0.5% Eye Drops] 1 drp EACH EYE BID 07/23/16 Nitroglycerin 0.4 mg SL Q5M PRN 07/23/16 Potassium Chloride 20 meq PO DAILY 07/23/16 aspirin 81 mg tablet,delayed release 81 mg PO DAILY 04/12/18 metoprolol succinate ER 25 mg tablet,extended release 24 hr 25 mg PO DAILY #30 tab 05/16/18 levothyroxine 25 mcg tablet 25 mcg PO DAILY 06/28/18 pravastatin 40 mg tablet 40 mg PO QHS #90 tab 06/28/18 Clopidogrel Bisulfate [Plavix] 75 mg PO DAILY #30 tablet 08/07/18 Furosemide [Lasix] 40 mg PO DAILY #30 tablet 08/07/18 Isosorbide Mononitrate [Imdur] 30 mg PO DAILY #30 tablet 08/07/18 Losartan Potassium [Cozaar] 50 mg PO BID #60 tablet 08/07/18 Metformin HCl 500 mg PO BID #30 tablet 08/07/18 glipiZIDE [Glucotrol] 5 mg PO BIDAC #60 tablet 08/07/18 Following Prescrptions Were Given to Patient: Clopidogrel Bisulfate [Plavix] 75 mg PO DAILY #30 tablet Furosemide [Lasix] 40 mg PO DAILY #30 tablet glipiZIDE [Glucotrol] 5 mg PO BIDAC #60 tablet Isosorbide Mononitrate [Imdur] 30 mg PO DAILY #30 tablet Losartan Potassium [Cozaar] 50 mg PO BID #60 tablet Metformin HCl 500 mg PO BID #30 tablet Primary Care Physician: Chris Fournier DO [Primary Care Provider] - Please follow up with your Primary Care Physician in: in 1 week Advised Please Follow Up With: Marcus Diaz MD When: as scheduled Medical Necessity - Tobacco Use Smoking Status: Never smoker Tobacco Use: Non-smoker Meaningful Use Info Meaningful Use Diagnoses (Choose all that apply): None applicable Code Visit Inpatient E&M: 18720 Disch Hosp
[2018-08-07 10:46] LABS: Bedside Glucose 406 mg/dL (70-110)
--- NOTE | 2018-08-08 15:36 | CASEMGMT ---
RN CM DC PHONE CALL DC DATE: 08/07/18 DC Disposition: Home LACE/STRATA: 08/07/18 Intro role of CM to patient via phone. Pt states she is feeling improved. No questions re: prescriptions, f/u or instructions. No care improvement suggestions given. Lara LEVYN RN ACM
== END 2018-08-07 10:52 | disposition home or self-care (01) | DRG 305 ==
LOC: ED 21:11 → PCU 23:42
PROVIDERS: Admitting Provider Family Medicine; Emergency Provider Emergency Medicine; Family Provider Student in an Organized Health Care Education/Training Program; PCP Student in an Organized Health Care Education/Training Program; Referring Provider Family Medicine; Visit Provider Internal Medicine
DX: I16.0 Hypertensive urgency (principal); N17.9 Acute kidney failure, unspecified; R07.89 Other chest pain; E78.5 Hyperlipidemia, unspecified; E03.9 Hypothyroidism, unspecified; E11.9 Type 2 diabetes mellitus without complications; I25.118 Atherosclerotic heart disease of native coronary artery with other forms of angina pectoris; I11.9 Hypertensive heart disease without heart failure; I25.2 Old myocardial infarction; C44.622 Squamous cell carcinoma of skin of right upper limb, including shoulder; Z79.84 Long term (current) use of oral hypoglycemic drugs; Z79.01 Long term (current) use of anticoagulants; Z79.899 Other long term (current) drug therapy
CPT/HCPCS: 36415; 71045; 80048; 80053; 80061; 82962; 83036; 83735; 83880; 84484; 85025; 85027; 85610; 85730; 93005; 93308; 97802; 99285; J7030; Q9957; A4216; C8924

== ENCOUNTER → 2018-10-27 08:32 | Outpatient (CLI) | payer MEDICARE, OTHER, SELFPAY ==
[2018-08-17 14:44] VITALS: BMI 25.8
--- NOTE | 2018-10-27 08:36 | BI_ITS ---
MAMMOGRAPHY - BILATERAL DIAGNOSTIC REASON FOR EXAM: Female, 82 years old. Right breast lump. PERTINENT HISTORY: Personal history of breast cancer. Prior left lumpectomy with radiation treatment. Daughter with breast cancer. Sister with breast cancer. Mother with breast cancer. TECHNIQUE: Digital bilateral breast leila (3D mammographic acquisition) in the CC and MLO projections. 2-D mediolateral oblique (MLO) and craniocaudad (CC) views of both breasts were obtained. CAD: Full Field Digital Mammography with Computer Added Detection was performed. COMPARISON: Comparison is made with prior study dated September 21, 2016 and September 19, 2015. FINDINGS: Breast Composition: There are scattered areas of fibroglandular density. There are no dominant masses or suspicious calcifications. Once again, the patient is status post lumpectomy in the upper outer quadrant of the left breast. Resultant architectural distortion and breast deformity and skin thickening. Surgical clips are seen in the left axillary region. Dense calcific nodules are seen bilaterally suggestive of calcified fibroadenomas. There is been no change. No other significant abnormalities are identified. There has been no significant change since the prior study. BI/DIAG MAMM W/CAD, BILAT IMPRESSION: Stable bilateral diagnostic mammogram. One year follow-up recommended. (A) ASSESSMENT CATEGORY: BIRADS Category 2: Benign. A letter regarding these results will be sent to the patient by the facility within 30 days. Approximately 10% of breast cancers are not detected by mammography. A normal mammogram should not delay biopsy of a clinically suspicious abnormality. Electronically Signed: Abran Sanchez, at 10:32 EDT , Service support ,
--- NOTE | 2018-10-27 08:36 | US_ITS ---
STUDY: ULTRASOUND BREAST - RIGHT REASON FOR EXAM: Female, 82 years old. Palpable lump in the right breast. TECHNIQUE: Axial and longitudinal images of the RIGHT breast were performed with a high resolution ultrasound transducer. COMPARISON: Comparison is made with prior mammogram done earlier in the day. FINDINGS: RIGHT Breast: In the retroareolar region of the breast, there are 2 subcentimeter calcific densities with posterior acoustical shadowing corresponding to the mammographic findings suggestive of calcifying fibroadenomas. 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 ASSESSMENT CATEGORY: BIRADS Category 2: Benign. A letter regarding these results will be sent to the patient by the facility within 30 days. Electronically Signed: Abran Sanchez, at 11:21 EDT , Service support ,
== END ==
PROVIDERS: Family Provider Student in an Organized Health Care Education/Training Program; PCP Student in an Organized Health Care Education/Training Program; Referring Provider Student in an Organized Health Care Education/Training Program; Visit Provider Student in an Organized Health Care Education/Training Program
DX: N63.10 Unspecified lump in the right breast, unspecified quadrant (principal); Z85.3 Personal history of malignant neoplasm of breast; Z80.3 Family history of malignant neoplasm of breast
CPT/HCPCS: 76642; 77062; 77066; G0279

== ENCOUNTER → 2019-03-06 11:35 | Outpatient (CLI) | payer MEDICARE, OTHER, SELFPAY ==
[2019-02-16 09:28] VITALS: BMI 24.0
--- NOTE | 2019-03-06 11:56 | RAD_ITS ---
STUDY: X-RAY CHEST REASON FOR EXAM: Female, 83 years old. Cough for several days. TECHNIQUE: Single PA view of the chest. COMPARISON: 08/05/2018. FINDINGS: There are multiple bilateral basilar calcified granuloma, largest seen on the left and measuring 7.8 mm. There is diffuse nonspecific interstitial prominence along the subpleural region and lung bases, right more than left suggestive of interstitial lung disease versus early fibrosis. Remainder of the lungs are clear. There is no demonstrated pleural abnormality. Normal size heart. Normal mediastinum and olayinka. Normal visualized pulmonary arteries. There is atherosclerotic calcification of the aortic arch with tortuosity. There is demineralization of the osseous structures. There is degenerative osteoarthritis of the bilateral shoulders and spine. There is no demonstrated abnormality of the visualized soft tissue structures of the upper abdomen. RAD/Chest PA and Lateral IMPRESSION: No acute cardiopulmonary disease. Electronically Signed: Marcie Vinson MD at 21:08 EST , Service support ,
[2019-03-06 12:43] LABS: Hematocrit 35.8 % (37-47); Hemoglobin 11.8 g/dL (12.0-15.0); Mean Corpuscular Hgb 29.9 pg (27.0-32.0); Mean Corpuscular Volume 90.9 fL (81-99); Mean Platelet Vol. 9.8 fl (6.2-12.0); Platelet Count 270 K/mm3 (150-450); RBC Distribution Width CV 13.5 % (11.6-14.6); RBC Distribution Width SD 44.2 fl (35.1-43.9); Red Blood Count 3.94 M/mm3 (4.2-5.4); White Blood Count 5.2 K/mm3 (4.4-11.0)
[2019-03-06 13:12] LABS: Anion Gap 3 (5-15); BUN 12 mg/dL (7-18); BUN/Creat Ratio 15.2 RATIO (10-20); Calcium,Total 8.7 mg/dL (8.5-10.1); Chloride 104 mmol/L (98-107); Creatinine, Serum 0.79 mg/dL (0.55-1.02); EST Glomerular Filtration Rate 74 mL/min (>60); Est Glom Filt Rate - Afr Amer 89 mL/min (>60); Glucose 196 mg/dL (74-106); Potassium 3.4 mmol/L (3.5-5.1); Sodium Level 136 mmol/L (136-145)
[2019-03-06 13:19] LABS: BNP,B-Type NATRIURETIC PEPTIDE 119.9 pg/mL (0-100)
== END ==
PROVIDERS: Family Provider Student in an Organized Health Care Education/Training Program; PCP Student in an Organized Health Care Education/Training Program; Referring Provider Physician Assistant Medical; Visit Provider Physician Assistant Medical
DX: R05 Cough (principal); I51.81 Takotsubo syndrome; R07.9 Chest pain, unspecified; I21.4 Non-ST elevation (NSTEMI) myocardial infarction; I25.118 Atherosclerotic heart disease of native coronary artery with other forms of angina pectoris; R61 Generalized hyperhidrosis
CPT/HCPCS: 36415; 71046; 80048; 83880; 85027

== ENCOUNTER 2019-03-12 10:27 | Observation (INO) | payer MEDICARE, OTHER, SELFPAY ==
[2019-02-16 09:28] VITALS: BMI 24.0
[2019-03-12] VITALS (14 sets, daily range): BP systolic 109–237; BP diastolic 52–107; PULSE 45–64; RESP 16–22; TEMP 36.4–36.6; O2SAT 95–98; BMI 24.0; BMI 23.8
--- NOTE | 2019-03-12 10:30 | ED.RN ---
sent to room. called for ekg
--- NOTE | 2019-03-12 10:51 | RAD_ITS ---
STUDY: X-RAY CHEST REASON FOR EXAM: Female, 83 years old. Chest pain TECHNIQUE: Single AP portable view of the chest. COMPARISON: 03/06/2019 FINDINGS: There is hyperinflation of the lungs consistent with chronic obstructive lung disease (COPD). Lungs are clear. There is no demonstrated pleural abnormality. Normal size heart. Normal mediastinum and olayinka. Normal visualized pulmonary arteries. Normal visualized aortic arch and descending thoracic aorta. Normal visualized thoracic spine. Normal visualized ribs, clavicles, and shoulders. There is no demonstrated abnormality of the visualized soft tissue structures of the upper abdomen. RAD/Chest 1 View (Portable) IMPRESSION: No acute findings Electronically Signed: Gabe Licea DO at 11:22 EST Tel , Service support ,
--- NOTE | 2019-03-12 10:51 | EKG12_ITS ---
Test Reason : CP Blood Pressure : / mmHG Vent. Rate : 058 BPM Atrial Rate : 058 BPM P-R Int : 164 ms QRS Dur : 146 ms QT Int : 438 ms P-R-T Axes : 003 007 163 degrees QTc Int : 429 ms Sinus bradycardia Left bundle branch block Abnormal ECG Confirmed by АЛЕКСАНДР RIVAS, CYNDI ([id number]), rewrite editor MATIAS BABB ([id number]) on 03/13/2019 11:31:03 AM Referred By: LAINA Confirmed By:CYNDI FOUNTAIN MD
[2019-03-12 11:02] LABS: Absolute Lymphocyte Count 2.59 X10^3/uL (0.83-4.51); Absolute Neutrophil Count 1.9 X10^3/uL (2.0-7.7); Basophil# 0.02 X10^3/uL; Basophil% 0.4 % (0-1); Eosinophils% 3.9 % (0-5); Hematocrit 38.5 % (37-47); Hemoglobin 12.8 g/dL (12.0-15.0); Lymphocyte # 2.59 X10^3/ul (4.0); Lymphocyte % 51.1 % (19-41); Mean Corp Hgb Conc 33.2 g/dL (32-36); Mean Corpuscular Hgb 30.3 pg (27.0-32.0); Mean Platelet Vol. 9.5 fl (6.2-12.0); Monocyte# 0.37 X10^3/uL; Monocyte% 7.3 % (0-10); NRBC Flagged by Analyzer 0 % (0-5); Neutrophil # 1.88 X10^3/uL (2.7-7.7); Neutrophil % 37.1 % (47-70); Platelet Count 276 K/mm3 (150-450); RBC Distribution Width CV 13.8 % (11.6-14.6); RBC Distribution Width SD 45.8 fl (35.1-43.9); Red Blood Count 4.23 M/mm3 (4.2-5.4); White Blood Count 5.1 K/mm3 (4.4-11.0)
--- NOTE | 2019-03-12 11:06 | CT_ITS ---
STUDY: CT BRAIN WITHOUT CONTRAST REASON FOR EXAM: Female, 83 years old. Vertigo. Dizziness and nausea RADIATION DOSAGE (If Supplied By Facility): CTDIvol = ( 44.99 ) mGy, DLP = ( 745.49 ) mGycm TECHNIQUE: Transaxial CT imaging of the brain was performed without administration of intravenous contrast material. Individualized dose optimization techniques were used for this CT. COMPARISON: No relevant priors. FINDINGS: Normal soft tissue structures. Normal calvarium. There is moderate cerebral atrophy with widening of the extra-axial spaces and ventricular dilatation. There are areas of decreased attenuation within the white matter tracts of the supratentorial brain, consistent with microvascular disease changes. Normal basal ganglia and thalami. Normal brainstem. There is mild cerebellar atrophy. There is no intracranial hemorrhage. There are no findings of an acute ischemic infarction. Sinus mucosal thickening involving the right maxillary sinus. CT/Brain/Head without Contrast IMPRESSION: Chronic involutional changes of the brain. Electronically Signed: Gabe Licea DO at 12:26 EST Tel , Service support ,
--- NOTE | 2019-03-12 11:10 | ED.DCSUM_ITS ---
History of Present Illness Chief Complaint: Chest Pain Informant: Patient, Family Onset: Days Maximum Severity: Mild Narrative: Patient presents with family who report she has had intermittent dizziness chest pain yesterday, trouble walking today, high blood pressure is ranging 1 80-201. Normally ranges about 130 she has had her outpatient medications adjusted by her outpatient providers did not improve her blood pressure, she was seen recently and had chest x-ray and labs done that were unremarkable Today because of all of these persistent intermittent symptoms the family brought her to the hospital as she seemed to have again intermittent dizziness there were concerned she might be having chest pain she has history of an OH in February 2018, she is had no fever no cough no abdominal pain no numbness weakness paresthesias, she is followed by Dr. Diaz Past Medical History - Allergies and Home Meds Allergies/Adverse Reactions: Allergies amlodipine besylate [From Norvasc] Allergy (Verified 02/16/19 09:28) Rash cephalexin monohydrate [From Keflex] Allergy (Verified 02/16/19 09:28) Hives streptomycin [Streptomycin] Allergy (Verified 02/16/19 09:28) Hives Sulfa (Sulfonamide Antibiotics) Allergy (Verified 02/16/19 09:28) Hives Primary Care Physician: Chris Fournier DO [Primary Care Provider] - Past Medical History: - - Prior [place] cardiac disease, hypertension prior TIA Surgical History: cataract, cholecystectomy, hysterectomy, - - Foot surgery, [place] ast lumpectomy Smoking Status: Never smoker - Family History Maternal Family History: Family History (Last Reviewed 02/16/19 @ 09:45 by JIMBO Allred) Father Heart disease Mother Breast cancer Sister Heart disease Family History: Reports: Cancer - Breast cancer Paternal Family History: Family History (Last Reviewed 02/16/19 @ 09:45 by JIMBO Allred) Father Heart disease Mother Breast cancer Sister Heart disease Family History: Reports: Heart Disease - heart failure, No pertinent history Review of Systems General: Denies: Chills, Fever, Sweats Eyes: Denies: Visual changes - bilaterally, Diplopia ENT: Denies: Rhinorrhea, Sore throat Cardiovascular: Reports: Chest pain. Denies: Palpitations Respiratory: Denies: Dyspnea, Cough, Dyspnea on exertion Gastrointestinal: Denies: Abdominal pain, Nausea, Vomiting, Diarrhea, Melena, Hematochezia Genitourinary: Denies: Dysuria, Hematuria, Frequency Musculoskeletal: Denies: Back pain, Extremity Pain Skin: Denies: Rash, Wounds Neurological: Reports: -. Denies: Headache, Weakness, Numbness Physical Exam Vital Signs/Narrative: Vital Signs Temp Pulse Resp BP Pulse Ox 03/12/19 11:06 97 03/12/19 10:29 97.9 F 64 16 237/107 H 96 General: Well nourished, Well developed, No Acute Distress Head: Normocephalic, Atraumatic Eyes: Perrl, EOMI ENT: Moist mucous membranes, No rhinorrhea Neck: Supple, Nontender Cardiovascular: Regular rate, Regular rhythm, No murmurs Respiratory: No distress, CTA bilaterally, Chest nontender Abdomen: Soft, Nontender, Nondistended, Normal bowel sounds Back: Nontender, Normal Inspection Extremities: Nontender, No edema Skin: Normal color, No rash Neurological: Alert, Oriented x3, Cranial nerves II-XII grossly intact, Normal Strength, Normal Sensation, - - The patient's neurologic cardiac general medical exam negative, her NIH is 0, her blood pressure is 220/110 she is resting company the bed moving all 4 she denies being dizzy at this time Psychological: Normal affect, Normal Mood Diagnostic/Tx/Re-eval - Medical Decision Making The patient's neurologic physical exam unremarkable except for the above blood pressure, her EKG shows a sinus rhythm left bundle old EKG pending at this time given all the above screening labs CT clonidine Patient's ED screening evaluation was generally unremarkable labs CT chest x-ray nothing acute chronic changes on reevaluation her blood pressure is improved to 140/80 however she still complains now being dizzy she where she does not feel as if she is safe to walk she lives alone at home, family believes admission is indicated, given all the above I have asked the hospital see her for further management Admit stable Impression final labile hypertension, acute recurrent dizziness, ataxia, failed outpatient therapy ED Disposition - Plan for ED Patient: Diagnosis: Chest pain, Hypertension, Ataxia, failed outpatient therapy Referrals: Chris Fournier DO [Primary Care Provider] -
[2019-03-12] MEDS: Aspirin 81 MG TAB.CHEW 324 MG PO (11:12)
[2019-03-12] MEDS: Clonidine HCl 0.1 MG, Clonidine HCl 0.2 MG 0.3 MG PO (11:13)
[2019-03-12] MEDS: 0.9% Normal Saline 1,000 ML 150 ML IV (11:13)
[2019-03-12 11:15] LABS: Anion Gap 6 (5-15); BUN 13 mg/dL (7-18); BUN/Creat Ratio 16.5 RATIO (10-20); Calcium,Total 8.9 mg/dL (8.5-10.1); Chloride 106 mmol/L (98-107); Creatinine, Serum 0.79 mg/dL (0.55-1.02); EST Glomerular Filtration Rate 74 mL/min (>60); Est Glom Filt Rate - Afr Amer 90 mL/min (>60); Estimated Creatinine Clearance 34.64 ml/min; Glucose 183 mg/dL (74-106); Sodium Level 138 mmol/L (136-145)
[2019-03-12 11:45] LABS: BNP,B-Type NATRIURETIC PEPTIDE 60.4 pg/mL (0-100)
[2019-03-12 13:14] LABS: Bacteria 0 SEEN /hpf (None Seen); Color, Urine Yellow (Yellow); Glucose, Dipstick Normal (Normal); Ketone-Dipstick Negative (Negative); Leukocyte Esterase-Dipstick 100 /ul (Negative); Mucous, Urine 0 SEEN /hpf (<or=2+); Nitrite-Dipstick Negative (Negative); Occult Blood-Urine Negative /ul (Negative); Protein-Dipstick Negative (Negative); Red Blood Cells-Urine 0 SEEN /hpf (0-5); Squamous Epithelial Cells - UA 0 SEEN /hpf (5-10); Urine Bilirubin Dipstick Negative (Negative); Urine Clarity Sl. Cloudy (Clear); Urine Urobilinogen Normal (Normal)
[2019-03-12 13:24] LABS: White Blood Cells 0-5 SEEN /hpf (0-5)
--- NOTE | 2019-03-12 13:40 | PCM.HP.STD ---
Problem List (1) HLD (hyperlipidemia) Status: Chronic Qualifiers: Hyperlipidemia type: unspecified Qualified Code(s): E78.5 - Hyperlipidemia, unspecified (2) Hypothyroidism Status: Chronic Qualifiers: Hypothyroidism type: unspecified Qualified Code(s): E03.9 - Hypothyroidism, unspecified (3) Diabetes mellitus, type II Status: Chronic Qualifiers: Diabetes mellitus long term care pharmacist insulin use: without long term care pharmacist use Diabetes mellitus complication status: with unspecified complications (4) Hypertension Status: Chronic Qualifiers: Hypertension type: essential hypertension Qualified Code(s): I10 - Essential (primary) hypertension (5) Takotsubo cardiomyopathy Status: Chronic Comment: EF 10-15% per echo (6) Non-STEMI (non-ST elevated myocardial infarction) Status: Chronic History of Present Illness Date of Admission: 03/12/19 Chief Complaint: Dizziness, chest pain. The patient is a 83 year old F patient with past medical history as mentioned above presented to the emergency room because of dizziness. According to the patient's daughter, patient woke up from sleep today, checked her blood pressure and it was elevated. She started complaining of being dizzy and lightheaded, described as unsteady feeling and not feeling right, associated with weakness and fatigue and without aggravating or relieving factors. Yesterday, she had an episode of chest pain, across her chest, mild pain, not radiating and without aggravating or relieving factors. Couple weeks ago, she got URTI and sinusitis for which she had 2 rounds of antibiotics, she improved but she continued to complain of dry cough since then. Patient mentioned that she has been having intermittent diarrhea over the last several days, watery stool without blood. She denied abdominal pain, nausea or vomiting. Denies fever chills. Lately, she has been having issues with labile hypertension, her blood pressure has been significantly fluctuating and goes up to 200s systolic at times. Last week, she called her protective services officer and dose of also by mononitrate was doubled. Few weeks before that, she was started on HCTZ for uncontrolled hypertension. Patient continued to have significant elevation of her blood pressure which goes up to 190 systolic. She had history of hypertension and she has been on HCTZ, isosorbide mononitrate, losartan metoprolol and apparently, her blood pressure has been uncontrolled. She had history of Takutsubo cardiomyopathy and she has been on losartan and metoprolol and seemed to be under control. On Jul, 2018, she was diagnosed with type 2 diabetes mellitus and was started on metformin. Upon arrival to ED today, her blood pressure was 237/107, was afebrile, heart rate stable, pulse ox was 96% on room air. She received a total of 0.3 mg of clonidine p.o. and her blood pressure came down very nicely, last blood pressure was 122/63. Routine blood work was unremarkable. EKG revealed sinus bradycardia with LBBB which is chronic, no acute ischemic changes. Troponin and BNP were unremarkable. Urinalysis was unremarkable. Chest x-ray showed no acute findings. CT scan brain showed no acute infarct or hemorrhage. She is being admitted for hypertensive urgency/uncontrolled hypertension as well as episode of chest pain which was resolved. 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 Diaz: mid RCA ,30% stenosis, remaining coronaries normal, Takotsubo CMP per echo, EF 10-15%. 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 Diaz: mid RCA ,30% stenosis, remaining coronaries normal, Takotsubo CMP per echo, EF 10-15%. Takotsubo cardiomyopathy (Chronic) Onset Date: 03/21/18 I51.81 EF 10-15% per echo Non-STEMI (non-ST elevated myocardial infarction) (Chronic) Onset Date: 03/21/18 I21.4 Allergies amlodipine besylate [From Norvasc] Allergy (Verified 02/16/19 09:28) Rash cephalexin monohydrate [From Keflex] Allergy (Verified 02/16/19 09:28) Hives streptomycin [Streptomycin] Allergy (Verified 02/16/19 09:28) Hives Sulfa (Sulfonamide Antibiotics) Allergy (Verified 02/16/19 09:28) Hives Home Medications: Ambulatory Orders Medication Instructions Recorded Aspirin [Aspirin, Baby] 81 mg PO DAILY@0800 03/12/19 Brimonidine Tartrate/Timolol 1 drp OPHTHALMIC (EYE) BID 03/12/19 [Combigan Eye Drops] Clopidogrel Bisulfate [Plavix] 75 mg PO DAILY 03/12/19 Hydrochlorothiazide [Hctz] 25 mg PO DAILY 03/12/19 Isosorbide Mononitrate [Isosorbide 30 mg PO BID 03/12/19 Mononitrate ER] Latanoprost 0.005% [Xalatan 1 drp EACH EYE QHS 03/12/19 Opthalmic] Losartan Potassium [Cozaar] 50 mg PO BID 03/12/19 Metformin HCl [Glucophage] 500 mg PO BID 03/12/19 Metoprolol Succinate [Toprol Xl] 25 mg PO DAILY 03/12/19 Pravastatin Sodium 40 mg PO QHS 03/12/19 Surgical History: Surgical History (Last Reviewed 02/16/19 @ 09:45 by JIMBO Allred) History of cataract extraction Z98.49 History of cholecystectomy Z90.49 History of hysterectomy Z90.710 History of lumpectomy of left breast Z98.890 Surgical History: cataract, cholecystectomy, hysterectomy, - - Foot surgery, breast lumpectomy Psychiatric History: No pertinent psych hx 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 Denies: Anorexia, Chills, Fever Eyes: Denies: Blurred vision, Double vision, Drainage, Vision Change HEENT: Denies: Difficulty Hearing, Ear Pain, Eye Pain, Nasal Congestion, Sore Throat Cardiovascular: Reports: Chest Pain, Light Headedness. Denies: Chest Pressure, Chest Tightness, Heaviness, Palpitations, Paroxysmal Noc. Dyspnea, Syncope Respiratory: Reports: Cough, Shortness of Breath. Denies: Hemoptysis, Pleuritic Pain, Sputum production, Wheezing Gastrointestinal: Reports: Diarrhea. Denies: Abdominal Pain, Constipation, Nausea, Vomiting Genitourinary: Denies: Dysuria, Frequency, Hematuria Musculoskeletal: Denies: Arm Pain, Back Pain, Foot Pain Skin: Denies: Dryness, Rash Neurological: Reports: Headaches. Denies: Balance problems, Blurred vision, Double vision, Change in Speech, Slurred speech, Confusion, Incoordination, Numbness, Tingling Psychiatric: Denies: Anxiety, Depression Endocrine: Denies: Change in Body Habitus, Polydipsia, Polyuria VTE Information - Inpt Only VTE Present on Admission: No VTE Mechan Device Prophylaxis: None VTE Pharm Prophylaxis ordered?: Yes - Physical Exam Vitals/I&O's: Vital Signs Temp Pulse Resp BP Pulse Ox 23 F L 58 L 16 122/63 H 98 03/12/19 13:36 03/12/19 13:36 03/12/19 13:13 03/12/19 13:36 03/12/19 13:36 Oxygen Flow Rate (L/min) 2 Oxygen Delivery Method Room Air Weight: 136 lb Body Mass Index (BMI) 24.0 Finger Stick Blood Glucose 96 General: Alert, Oriented x3, Cooperative, No apparent distress HEENT: Atraumatic, PERRLA, EOMI, Normocephalic Oral: Moist Mucosa, No Gingival or Mucosal Lesions/ Ulcerations Neck: Supple, No JVD, Negative Carotid Bruits Lungs: Clear to auscultation, Normal air movement, No rhonchi, No wheeze, No rales Cardiovascular: Regular rate, Regular Rhythm, Normal S1, PMI Normal Abdomen: Bowel Sounds Present, Soft, Non Tender, Non-Distended, No Hepato-splenomegaly Extremities: No clubbing, No cyanosis, No edema Skin: No rashes, No breakdown Lymphatic: No Cervical, Supraclavicular, or Inguinal Adenopathy Neurological: Cranial nerves II-XII grossly intact, Motor Exam 5/5 strength throughout Psych/Mental Status: Normal Affect, Appropriate, Alert and oriented to time, place, person, mood and affect Laboratory Results 03/12/19 10:40: WBC 5.1, RBC 4.23, Hgb 12.8, Hct 38.5, MCV 91.0, MCH 30.3, MCHC 33.2, RDW Std Deviation 45.8 H, RDW Coeff of Johan 13.8, Plt Count 276, MPV 9.5, Immature Gran % (Auto) 0.200, Neut % (Auto) 37.1 L, Lymph % (Auto) 51.1 H, [place] % (Auto) 7.3, Eos % (Auto) 3.9, Baso % (Auto) 0.4, Absolute Neuts (auto) 1.9 L, Absolute Lymphs (auto) 2.59, Nucleated RBC % 0 03/12/19 10:40: Sodium 138, Potassium 4.0, Chloride 106, Carbon Dioxide 26.0, Anion Gap 6, BUN 13, Creatinine 0.79, Estim Creat Clear Calc 34.64, Est GFR (MDRD) Af Amer 90, Est GFR (MDRD) Non-Af 74, BUN/Creatinine Ratio 16.5, Glucose 183 H, Calcium 8.9, Troponin I < 0.015 03/12/19 10:40: B-Natriuretic Peptide 60.4 03/12/19 13:10: Urine Color Yellow, Urine Clarity Sl. Cloudy, Urine pH 7.0, Ur Specific [place] 1.010, Urine Protein Negative, Urine Glucose (UA) Normal, Urine Ketones Negative, Urine Occult Blood Negative, Urine Nitrite Negative, Urine Bilirubin Negative, Urine Urobilinogen Normal, Ur Leukocyte Esterase 100 H, Urine RBC 0 SEEN, Urine WBC 0-5 SEEN, Ur Squamous Epith Cells 0 SEEN, Urine Bacteria 0 SEEN, Urine Mucus 0 SEEN Clinical Impression(s) from Imaging Studies Chest X-Ray 03/12/19 10:51 IMPRESSION: No acute findings Electronically Signed: Gabe Licea DO at 11:22 EST Tel , Service support , Brain CT 03/12/19 11:06 IMPRESSION: Chronic involutional changes of the brain. Electronically Signed: Gabe Licea DO at 12:26 EST Tel , Service support , Current Medications Sodium Chloride () 1,000 mls @ 150 mls/hr IV .[id number] [facility] Last Admin: 03/12/19 11:13 Dose: 150 mls/hr Documented by: Assessment/Plan This is an 83 years old female patient presented to the emergency room because of dizziness, chest pain and she was found to have mild elevated blood pressure consistent with hypertensive urgency without evidence of endorgan damage and she is being admitted for observation and adjustment of her medications. #1 hypertensive urgency/uncontrolled hypertension: Patient has been having issues with labile hypertension over the last several months. Recently, dose of Imdur increased and before that, she was started on HCTZ. In the ED, she received clonidine and her blood pressure came down and improved significantly. Patient has been taking combigan eyedrops which may cause elevation of blood pressure but she has been on latanoprost eyedrops in the last several months which does not elevate blood pressure. Plan: Admit to PCU observation, cardiac monitoring, continue HCTZ, Imdur, losartan and metoprolol, IV hydralazine PRN, vitals every 4 hours, Tylenol PRN, IV antiemetics PRN, PT OT evaluation and treatment. If her blood pressure continues to be high, may be starting clonidine is a good option for her as it was given in the ED and her blood pressure came down very nicely but we have to keep an eye on her heart rate because she became slightly bradycardic after clonidine. #2 episode of chest pain: Resolved today. It is atypical, EKG without acute ischemic changes. Troponin is negative. Could be due to heart rate with blood pressure. Plan: Cardiac monitoring, serial cardiac enzymes, repeat EKG tomorrow morning. No indication for further cardiac work-up unless cardiac enzymes changes or she developed new EKG changes. #3 diarrhea: In the context of taking 2 rounds of antibiotics for URTI/sinusitis. Plan for stool for C. difficile. #4 CAD: Stable, plan as above, continue aspirin, Plavix, losartan and metoprolol. #5 hypertension: Blood pressure is elevated but improved with clonidine. Plan as above. #6 Takotsubo cardiomyopathy: Clinically stable, compensated, no acute CHF. Continue HCTZ, nitrate, losartan and metoprolol. #7 type 2 diabetes mellitus: ADA diet, Accu-Cheks, insulin scale, continue metformin. #8 DVT prophylaxis: Subcu Lovenox. This note was generated with [employer] dictation software. It may contain incorrect words, spelling, and punctuation that were not noted in checking the note before signing. Code Visit OBSV E&M: 30003 Initial observation care L3
--- NOTE | 2019-03-12 14:39 | EKG12_ITS ---
Test Reason : CP ADMISION Blood Pressure : / mmHG Vent. Rate : 050 BPM Atrial Rate : 050 BPM P-R Int : 166 ms QRS Dur : 148 ms QT Int : 504 ms P-R-T Axes : -05 -01 145 degrees QTc Int : 459 ms Sinus bradycardia Left bundle branch block Abnormal ECG No previous ECGs available Confirmed by OLIVER RIVAS, MORENO ([id number]), non linear editor CRIS STEWART ([id number]) on 03/20/2019 12:58:27 PM Referred By: CHAYO Confirmed By:CONRAD BOYD MD
[2019-03-12 15:53] LABS: Thyroid Stim Hormone (TSH) 4.38 uIU/mL (0.358-3.74)
[2019-03-12] MEDS: 0.9% Saline Lock 10 ML Syringe IV (16:54)
[2019-03-12] MEDS: metFORMIN HCl 500 MG Tablet PO (16:54)
[2019-03-12] MEDS: Glucerna Shake 120 ML LIQUID PO (16:54)
[2019-03-12] MEDS: hydrALAZINE 20 MG/ML Vial 10 MG IV (16:54)
[2019-03-12 17:00] LABS: Bedside Glucose 105 mg/dL (70-110)
[2019-03-12] MEDS: Pravastatin 40 MG Tablet PO (21:00)
[2019-03-12] MEDS: Isosorbide Mononitrate 30 MG Tablet PO (21:01)
[2019-03-12] MEDS: Losartan Potassium 50 MG Tablet PO (21:01)
[2019-03-12] MEDS: Latanoprost 0.005% 1 Bottle 1 DRP EACH EYE (21:02)
[2019-03-12 21:21] LABS: Bedside Glucose 130 mg/dL (70-110)
[2019-03-13] VITALS (11 sets, daily range): BP systolic 117–159; BP diastolic 42–70; PULSE 53–86; RESP 16–18; TEMP 36.5–36.8; O2SAT 93–98
--- NOTE | 2019-03-13 02:27 | NURSING ---
Report received, assumed care of pt at this time.
--- NOTE | 2019-03-13 05:55 | EKG12_ITS ---
Test Reason : AM EKG Blood Pressure : / mmHG Vent. Rate : 059 BPM Atrial Rate : 059 BPM P-R Int : 174 ms QRS Dur : 148 ms QT Int : 470 ms P-R-T Axes : -06 002 165 degrees QTc Int : 465 ms Sinus bradycardia with Premature atrial complexes Left bundle branch block Abnormal ECG When compared with ECG of 12-MAR-2019 10:38, MANUAL COMPARISON REQUIRED, DATA IS UNCONFIRMED Confirmed by АЛЕКСАНДР RIVAS, CYNDI ([id number]), science editor KENYA CUMMINS ([id number]) on 03/15/2019 11:40:47 AM Referred By: RITA Confirmed By:CYNDI FOUNTAIN MD
[2019-03-13 07:05] LABS: Bedside Glucose 143 mg/dL (70-110)
[2019-03-13] MEDS: Glucerna Shake 120 ML LIQUID PO (08:06)
[2019-03-13] MEDS: Aspirin 81 MG TAB.CHEW PO (08:07)
[2019-03-13] MEDS: metFORMIN HCl 500 MG Tablet PO (08:07)
[2019-03-13] MEDS: hydroCHLOROthiazide 25 MG Tablet PO (08:08)
[2019-03-13] MEDS: Isosorbide Mononitrate 30 MG Tablet PO (08:08)
[2019-03-13] MEDS: Metoprolol(XL)Succ 25 MG Tablet PO (08:08)
[2019-03-13] MEDS: Losartan Potassium 50 MG Tablet PO (08:09)
[2019-03-13 09:04] LABS: T4 Free Direct 1.02 ng/dL (0.76-1.46)
[2019-03-13] MEDS: Clopidogrel Bisulfate 75 MG Tablet PO (10:29)
[2019-03-13] MEDS: hydrALAZINE 25 MG Tablet PO ×2 (10:29→13:45)
[2019-03-13] MEDS: Enoxaparin 30 MG/0.3 ML Syringe SC (10:31)
--- NOTE | 2019-03-13 11:44 | DCINST_ITS ---
- Discharge Diagnoses Current Active Problems: Current Active and Chronic Problems (Last Updated 03/12/19 @ 13:48 by Rony Davidson MD) Chest pain (Acute) Hypertension (Chronic) You will use the following diet at home:: Cardiac Your food should be the consistency of: Regular Your liquids should be the consistency of: Regular/Thin Discharge Activity: Return to Normal Activity Allergies/Adverse Reactions: Allergies amlodipine besylate [From Norvasc] Allergy (Verified 02/16/19 09:28) Rash cephalexin monohydrate [From Keflex] Allergy (Verified 02/16/19 09:28) Hives streptomycin [Streptomycin] Allergy (Verified 02/16/19 09:28) Hives Sulfa (Sulfonamide Antibiotics) Allergy (Verified 02/16/19 09:28) Hives Medications to take at Discharge Aspirin [Aspirin, Baby] 81 mg PO DAILY@0800 03/12/19 Brimonidine Tartrate/Timolol [Combigan Eye Drops] 1 drp OPHTHALMIC (EYE) BID 03/12/19 Clopidogrel Bisulfate [Plavix] 75 mg PO DAILY 03/12/19 Hydrochlorothiazide [Hctz] 25 mg PO DAILY 03/12/19 Isosorbide Mononitrate [Isosorbide Mononitrate ER] 30 mg PO BID 03/12/19 Latanoprost 0.005% [Xalatan Opthalmic] 1 drp EACH EYE QHS 03/12/19 Losartan Potassium [Cozaar] 50 mg PO BID 03/12/19 Metformin HCl [Glucophage] 500 mg PO BID 03/12/19 Metoprolol Succinate [Toprol Xl] 25 mg PO DAILY 03/12/19 Potassium Chloride 20 meq PO BID 03/12/19 Pravastatin Sodium 40 mg PO QHS 03/12/19 hydrALAZINE [Apresoline] 25 mg PO TID #90 tab 03/13/19 The following prescriptions were given: hydrALAZINE [Apresoline] 25 mg PO TID #90 tab Transmission Status: Pending to [id number] Primary Care Physician: Chris Fournier DO [Primary Care Provider] - Please follow up with your Primary Care Physician in: 1-2 weeks Test Results: Test results from this visit will be discussed in further detail at your follow- up appointment, if applicable. Please Follow Up With: Julia Bonilla PA When: 2 weeks Proposed Discharge Date: 03/13/19
[2019-03-13 11:50] LABS: Bedside Glucose 157 mg/dL (70-110)
--- NOTE | 2019-03-13 11:59 | PHA.DC.MC ---
Pharmacy Service has performed discharge medication reconciliation and counseling for this patient. The patient's discharge medication list was reviewed for discrepancies and discrepancies were resolved. The patient was counseled on the following discharge medications and changes in medications for homegoing were reviewed. 1. HYDRALAZINE The Reason for Use, instructions for use, and potential side effects were reviewed for all new medications. The patient's questions regarding all of their medications were answered. The patient was able to verbally demonstrate an understanding of their discharge medications. Home Medications Aspirin [Aspirin, Baby] 81 mg PO DAILY@0800 03/12/19 Brimonidine Tartrate/Timolol [Combigan Eye Drops] 1 drp OPHTHALMIC (EYE) BID 03/12/19 Clopidogrel Bisulfate [Plavix] 75 mg PO DAILY 03/12/19 Hydrochlorothiazide [Hctz] 25 mg PO DAILY 03/12/19 Isosorbide Mononitrate [Isosorbide Mononitrate ER] 30 mg PO BID 03/12/19 Latanoprost 0.005% [Xalatan Opthalmic] 1 drp EACH EYE QHS 03/12/19 Losartan Potassium [Cozaar] 50 mg PO BID 03/12/19 Metformin HCl [Glucophage] 500 mg PO BID 03/12/19 Metoprolol Succinate [Toprol Xl] 25 mg PO DAILY 03/12/19 Potassium Chloride 20 meq PO BID 03/12/19 Pravastatin Sodium 40 mg PO QHS 03/12/19 hydrALAZINE [Apresoline] 25 mg PO TID #90 tab 03/13/19
--- NOTE | 2019-03-13 13:17 | PCM.DC.SUM ---
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 Diaz: mid RCA ,30% stenosis, remaining coronaries normal, Takotsubo CMP per echo, EF 10-15%. Takotsubo cardiomyopathy (Chronic 03/21/18) EF 10-15% per echo Non-STEMI (non-ST elevated myocardial infarction) (Chronic 03/21/18) Hospital Course and Treatment Imaging Results: RAD/Chest 1 View (Portable) IMPRESSION: No acute findings CT/Brain/Head without Contrast IMPRESSION: Chronic involutional changes of the brain. Operations: None Procedures: None Summary of Care Provided: Hospital Course: The patient is a 83 year old F with pmhx of CAD, takotsubo CM, poorly controlled HTN who presented to the ER with c/o chest pain and dizziness. She had checked her BP at home and it was significantly elevated. She reported she had been having controlling her blood pressure recently. She also complained of some diarrhea after being treated for a URTI with abx. She was found to have severely elevated BP in the ER. Troponin and EKG were negative. She was admitted to the PCU on tele for HTN urgency. Trop was cycled and remained negative. She was given IV hydralazine which controlled her BP well. She was transitioned to PO hydralazine the following day. She had no further dizziness or CP. UA was negative, TSH was slightly elevated, Free T4 was normal, BNP was normal. We planned to check her for C diff regarding new onset diarrhea after being on abx, however she had no further diarrhea after admission so this was deferred. She was not interested in pursuing any other cardiac workup such as a stress test. She was discharged home in stable condition. She will need follow up with her PCP in 1-2 weeks and with her flume ride operator in 2 weeks (she has an appointment later this month with Julia Bonilla). This patient was seen by Luis Lang PA-C under the supervision of Dr. Solis. [] - Physical Exam Vitals/I&O's: Vital Signs Temp Pulse Resp BP Pulse Ox 98.2 F 86 16 128/54 H 98 03/13/19 10:23 03/13/19 11:48 03/13/19 11:36 03/13/19 11:36 03/13/19 11:36 Oxygen Flow Rate (L/min) 2 Oxygen Delivery Method Room Air Weight: 134 lb 7.712 oz Body Mass Index (BMI) 23.8 Finger Stick Blood Glucose 96 Intake and Output for Last 24 Hours 03/11/19 03/12/19 03/13/19 23:59 23:59 23:59 Intake Total 835 / 895 410 / 410 Balance 835 / 895 410 / 410 General: Alert, Oriented x3, Cooperative HEENT: Atraumatic, PERRLA, EOMI, Normocephalic Neck: Supple, No JVD, Negative Carotid Bruits Lungs: Clear to auscultation, Normal air movement Cardiovascular: Regular rate, No murmurs Abdomen: Bowel Sounds Present, Soft, Non Tender Extremities: No edema, Capillary Refill Less than 3 Seconds Skin: No rashes, No breakdown Musculoskeletal: No Tenderness to Palpation of Joints or Extremities Neurological: Cranial nerves II-XII grossly intact Psych/Mental Status: Normal Affect, Appropriate, Alert and oriented to time, place, person, mood and affect Laboratory Results 03/12/19 13:10: Urine Color Yellow, Urine Clarity Sl. Cloudy, Urine pH 7.0, Ur Specific [place] 1.010, Urine Protein Negative, Urine Glucose (UA) Normal, Urine Ketones Negative, Urine Occult Blood Negative, Urine Nitrite Negative, Urine Bilirubin Negative, Urine Urobilinogen Normal, Ur Leukocyte Esterase 100 H, Urine RBC 0 SEEN, Urine WBC 0-5 SEEN, Ur Squamous Epith Cells 0 SEEN, Urine Bacteria 0 SEEN, Urine Mucus 0 SEEN 03/12/19 14:45: Troponin I < 0.015, TSH 4.38 H 03/12/19 16:51: POC Glucose 105 03/12/19 17:40: Troponin I < 0.015 03/12/19 17:40: Free T4 1.02 03/12/19 20:56: POC Glucose 130 H 03/13/19 06:54: POC Glucose 143 H 03/13/19 11:45: POC Glucose 157 H Current Medications Acetaminophen (Tylenol) 650 mg PO Q6H PRN PRN PRN Reason: Pain Score 1-3/Temp > 100.7 F Aspirin (Aspirin, Baby) 81 mg PO DAILY@0800 [facility] Last Admin: 03/13/19 08:07 Dose: 81 mg Documented by: Clopidogrel Bisulfate (Plavix) 75 mg PO DAILY [facility] Last Admin: 03/13/19 10:29 Dose: 75 mg Documented by: Enoxaparin Sodium (Lovenox) 30 mg SC DAILY [facility] Last Admin: 03/13/19 10:31 Dose: 30 mg Documented by: Glucagon () 1 mg IM .X1 PRN PRN Reason: Hypoglycemia Hydralazine HCl (Apresoline) 25 mg PO TID [facility] Last Admin: 03/13/19 10:29 Dose: 25 mg Documented by: Hydrochlorothiazide (Hctz) 25 mg PO DAILY [facility] Last Admin: 03/13/19 08:08 Dose: 25 mg Documented by: Sodium Chloride () 250 mls @ 15 mls/hr IV .[id number] PRN PRN Reason: Saline Flush Dextrose (Dextrose 10%-Water) 250 mls @ 999 mls/hr IV X1 PRN; Protocol PRN Reason: HYPOGLYCEMIA Insulin Human Lispro (Humalog Kwikpen (Bkc)) 0 unit SC ACHS [facility]; Protocol Last Admin: 03/13/19 12:48 Dose: Not Given Documented by: Isosorbide Mononitrate (Imdur) 30 mg PO BID [facility] Last Admin: 03/13/19 08:08 Dose: 30 mg Documented by: Latanoprost (Xalatan Opthalmic) 1 drop EACH EYE QHS [facility] Last Admin: 03/12/19 21:02 Dose: 1 drop Documented by: Losartan Potassium (Cozaar) 50 mg PO BID [facility] Last Admin: 03/13/19 08:09 Dose: 50 mg Documented by: [facility] Last Admin: 03/13/19 08:07 Dose: 500 mg Documented by: Metoprolol Succinate (Toprol Xl (Beta [place])) 25 mg PO DAILY [facility] Last Admin: 03/13/19 08:08 Dose: 25 mg Documented by: Nutritional Formula (Lactose Free) (Glucerna Shake) 120 ml PO TIDCM [facility] Last Admin: 03/13/19 12:48 Dose: Not Given Documented by: Ondansetron HCl (Zofran) 4 mg IV Q8H PRN PRN PRN Reason: NAUSEA/VOMITING Pravastatin Sodium (Pravachol) 40 mg PO QHS [facility] Last Admin: 03/12/19 21:00 Dose: 40 mg Documented by: Sodium Chloride () 10 - 40 ml IV UD PRN PRN Reason: SALINE FLUSH Last Admin: 03/12/19 16:54 Dose: 10 ml Documented by: Discharge Diet: Low fat/ Low Cholesterol, 2000 mg Sodium Diet Discharge Activity: Return to Normal Activity Home Medications: Medications to take at Discharge Aspirin [Aspirin, Baby] 81 mg PO DAILY@0800 03/12/19 Brimonidine Tartrate/Timolol [Combigan Eye Drops] 1 drp OPHTHALMIC (EYE) BID 03/12/19 Clopidogrel Bisulfate [Plavix] 75 mg PO DAILY 03/12/19 Hydrochlorothiazide [Hctz] 25 mg PO DAILY 03/12/19 Isosorbide Mononitrate [Isosorbide Mononitrate ER] 30 mg PO BID 03/12/19 Latanoprost 0.005% [Xalatan Opthalmic] 1 drp EACH EYE QHS 03/12/19 Losartan Potassium [Cozaar] 50 mg PO BID 03/12/19 Metformin HCl [Glucophage] 500 mg PO BID 03/12/19 Metoprolol Succinate [Toprol Xl] 25 mg PO DAILY 03/12/19 Potassium Chloride 20 meq PO BID 03/12/19 Pravastatin Sodium 40 mg PO QHS 03/12/19 hydrALAZINE [Apresoline] 25 mg PO TID #90 tab 03/13/19 Following Prescrptions Were Given to Patient: hydrALAZINE [Apresoline] 25 mg PO TID #90 tab Transmission Status: Received by [facility] #[id number] Primary Care Physician: Chris Fournier DO [Primary Care Provider] - Please follow up with your Primary Care Physician in: 1-2 weeks Please Follow Up With: Julia Bonilla PA When: 2 weeks Disposition: Home Minutes spent on discharge:: 35 Patient Condition:: Stable Medical Necessity - Tobacco Use Smoking Status: Never smoker Tobacco Use: Non-smoker Meaningful Use Info Meaningful Use Diagnoses (Choose all that apply): None applicable <Lazarus Solis - Last Filed: 03/13/19 14:09> Discharge Date and Diagnosis - Secondary Discharge Diagnosis Chronic Problems (Last Updated 03/12/19 @ 13:48 by Rony Davidson MD) HLD (hyperlipidemia) (Chronic) Hypothyroidism (Chronic) Diabetes mellitus, type II (Chronic) Hypertension (Chronic) 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 Diaz: mid RCA ,30% stenosis, remaining coronaries normal, Tak[place]ubo CMP per echo, EF 10-15%. Tak[place]ubo cardiomyopathy (Chronic 03/21/18) EF 10-15% per echo Non-STEMI (non-ST elevated myocardial infarction) (Chronic 03/21/18) Hospital Course and Treatment Summary of Care Provided: This patient was seen in conjunction with Luis Lang PA-C . I have independently interviewed and examined the patient and reviewed pertinent historical, laboratory, and other data. Please refer to Luis Lang PA-C note for details of this patient's presentation, findings, and recommendations. I have reviewed Luis Lang PA-C note and concur with documented findings. In brief, patient is 83-year-old female admitted with chest discomfort and markedly elevated blood pressure. Admitted to a monitored bed managed as a case of acute accelerated hypertension. Patient was offered the option of undergoing a nuclear stress test as part of evaluation of chest pain which she declined. Hospital course: As documented above - Physical Exam Vitals/I&O's: Vital Signs Temp Pulse Resp BP Pulse Ox 98.0 F 78 18 131/70 H 97 03/13/19 13:39 03/13/19 13:45 03/13/19 13:39 03/13/19 13:45 03/13/19 13:39 Oxygen Flow Rate (L/min) 2 Oxygen Delivery Method Room Air Weight: 61 kg Body Mass Index (BMI) 23.8 Finger Stick Blood Glucose 96 Intake and Output for Last 24 Hours 03/11/19 03/12/19 03/13/19 23:59 23:59 23:59 Intake Total 835 / 895 410 / 410 Balance 835 / 895 410 / 410 Laboratory Results 03/12/19 14:45: Troponin I < 0.015, TSH 4.38 H 03/12/19 16:51: POC Glucose 105 03/12/19 17:40: Troponin I < 0.015 03/12/19 17:40: Free T4 1.02 03/12/19 20:56: POC Glucose 130 H 03/13/19 06:54: POC Glucose 143 H 03/13/19 11:45: POC Glucose 157 H Code Visit OBSV E&M: 13136 Observation care discharge
== END 2019-03-13 11:44 | disposition home or self-care (01) ==
LOC: ED 11:10 → PCU 13:41
PROVIDERS: Physician Assistant; Admitting Provider Hospitalist; Emergency Provider Emergency Medicine; Family Provider Student in an Organized Health Care Education/Training Program; PCP Student in an Organized Health Care Education/Training Program; Visit Provider Internal Medicine
DX: I16.0 Hypertensive urgency (principal); I25.10 Atherosclerotic heart disease of native coronary artery without angina pectoris; E11.9 Type 2 diabetes mellitus without complications; I10 Essential (primary) hypertension; I25.2 Old myocardial infarction; I51.81 Takotsubo syndrome; E03.9 Hypothyroidism, unspecified; E78.5 Hyperlipidemia, unspecified; R00.1 Bradycardia, unspecified; I44.7 Left bundle-branch block, unspecified; Z79.899 Other long term (current) drug therapy; Z79.02 Long term (current) use of antithrombotics/antiplatelets; Z79.82 Long term (current) use of aspirin; Z79.84 Long term (current) use of oral hypoglycemic drugs; Z86.73 Personal history of transient ischemic attack (TIA), and cerebral infarction without residual deficits; R19.7 Diarrhea, unspecified; R27.0 Ataxia, unspecified; R06.02 Shortness of breath
CPT/HCPCS: 70450; 71045; 80048; 81001; 82962; 83880; 84439; 84443; 84484; 85025; 93005; 96361; 96372; 96374; 97802; 99218; 99251; 99285; A4216; G0378; G0463

== ENCOUNTER → 2019-10-31 13:53 | Outpatient (CLI) | payer MEDICARE, OTHER, SELFPAY ==
[2019-07-26 13:30] VITALS: BMI 23.8
--- NOTE | 2019-10-31 13:56 | BI_ITS ---
MAMMOGRAPHY - BILATERAL SCREENING REASON FOR EXAM: Female, 83 years old. Routine annual screening examination. PERTINENT HISTORY: Personal history of breast cancer. Prior left lumpectomy and radiation therapy. Daughter with breast cancer. Sister with breast cancer. Mother with breast cancer. TECHNIQUE: Digital bilateral breast tammy (3D mammographic acquisition) in the CC and MLO projections. 2-D mediolateral oblique (MLO) and craniocaudad (CC) views of both breasts were obtained. CAD: Full Field Digital Mammography with Computer Added Detection was performed. COMPARISON: Comparison is made with prior study dated 10/27/2018 and 09/21/2016. FINDINGS: Breast Composition: There are scattered areas of fibroglandular density. There are no dominant masses or suspicious calcifications. The patient is status post left lumpectomy with resultant deformity of the left breast. Surgical clips are seen in the left axillary region. Stable dense calcification in both breasts. No other significant abnormalities are identified. There has been no significant change since the prior study. BI/SCREEN MAMM (CAD) W/TAMMY BILAT IMPRESSION: Stable bilateral screening mammogram. Yearly follow-up mammogram recommended. (A) ASSESSMENT CATEGORY: BIRADS Category 2: Benign. A letter regarding these results will be sent to the patient by the facility within 30 days. Approximately 10% of breast cancers are not detected by mammography. A normal mammogram should not delay biopsy of a clinically suspicious abnormality. [id number] Electronically Signed: Abran Sanchez, at 14:46 EDT , Service support ,
== END ==
PROVIDERS: PCP Student in an Organized Health Care Education/Training Program; Referring Provider Student in an Organized Health Care Education/Training Program; Visit Provider Student in an Organized Health Care Education/Training Program
DX: Z12.31 Encounter for screening mammogram for malignant neoplasm of breast (principal)
CPT/HCPCS: 77063; 77067

== ENCOUNTER 2020-04-18 15:30 | Outpatient (RCR) | payer MEDICARE, OTHER, SELFPAY ==
[2019-07-26 13:30] VITALS: BMI 23.8
== END 2020-04-18 23:59 ==
LOC: IMMUN 15:30
PROVIDERS: PCP Student in an Organized Health Care Education/Training Program; Visit Provider Family Medicine
DX: Z23 Encounter for immunization (principal)
CPT/HCPCS: 0011A; 0012A; 91301

== ENCOUNTER → 2020-05-07 06:28 | Outpatient (CLI) | payer MEDICARE, OTHER, SELFPAY ==
[2020-04-25 11:20] VITALS: BMI 24.0
--- NOTE | 2020-05-07 07:58 | STRESSREP_ITS ---
Stress Test Report Date: 05-07-2020 Procedure: Pharmacologic stress nuclear imaging study Indications: Chest pain; Takotsubo syndrome Consent: Per the patient Procedure: The patient underwent pharmacologic (Regadenoson 0.4mg ) evaluation with a peak heart rate of 95 beats per minute (70%predicted maximal heart rate) and a peak blood pressure of 172/74 mmHg. The baseline ECG demonstrated sinus rhythm; left bundle branch block. The peak pharmacologic ECG demonstrated no obvious ECG changes. There were rare PVCs during infusion and recovery. There was no complaint of chest discomfort during pharmacologic infusion or recovery. The examination was discontinued secondary to completion of protocol. Impression: 1. Pharmacologic (Regadenoson) evaluation 2. Peak pharmacologic ECG with continued left bundle branch block with no obvious ECG changes. 3. For rare PVCs during infusion and recovery. 4. Nuclear images pending Myocardial perfusion imaging study: Technique: The patient was injected with 11.4 millicuries of technetium 99m Cardiolite and subsequently rest SPECT Cardiolite nuclear imaging was obtained in the horizontal long, vertical long, and short axis views. The patient underwent pharmacologic (Regadenoson) evaluation with a peak heart rate of 95 beats per minute (70% percent predicted maximal heart rate) and a peak blood pressure of 172/74 mmHg. The patient was injected with 33.2 millicuries of technetium 99m Cardiolite and subsequently stress SPECT Cardiolite nuclear imaging was obtained in the horizontal long, vertical long, and short axis views. A gated Cardiolite study at peak stress was obtained. Interpretation: Rest and stress SPECT Cardiolite nuclear imaging status post realignment, normalization, and attenuation correction demonstrate relative uniform tracer uptake and myocardial perfusion appearing within normal limits. There is end systolic thickening and brightening. The gated Cardiolite study demonstrates myocardial thickening and inward wall motion. The reported LVEF is 75%. Impression: 1. Rest and stress SPECT Cardiolite nuclear imaging demonstrate relative uniform tracer uptake and myocardial perfusion appearing within normal limits. 2. The gated Cardiolite study reports an LVEF of 75 %. This note was generated with [employer]ET[employer] software. It may contain incorrect words, spelling, and punctuation that were not noted in checking the note before signing.
== END ==
PROVIDERS: PCP Student in an Organized Health Care Education/Training Program; Referring Provider Physician Assistant Medical; Visit Provider Physician Assistant Medical
DX: R07.9 Chest pain, unspecified (principal)
CPT/HCPCS: 78452; 93017; A9500; A4216; J2785

== ENCOUNTER 2020-10-28 16:18 | Inpatient (IN) | payer MEDICARE, OTHER, SELFPAY ==
[2020-06-07 11:23] VITALS: BMI 24.4
[2020-10-28] VITALS (25 sets, daily range): BP systolic 114–226; BP diastolic 38–165; PULSE 27–53; RESP 13–23; TEMP 36.4–37.1; O2SAT 95–99; BMI 27.0; BMI 24.5
--- NOTE | 2020-10-28 16:30 | EKG12_ITS ---
Test Reason : BANDAR Blood Pressure : / mmHG Vent. Rate : 028 BPM Atrial Rate : 029 BPM P-R Int : 000 ms QRS Dur : 076 ms QT Int : 526 ms P-R-T Axes : 000 000 016 degrees QTc Int : 358 ms Marked sinus bradycardia with A-V dissociation and Junctional bradycardia with Sinus/atrial capture Possible Inferior-posterior infarct , age undetermined Abnormal ECG Confirmed by RANI RIVAS, DAVID ([id number]), offline editor KENYA CUMMINS ([id number]) on 10/31/2020 12:56:49 PM Referred By: Confirmed By:DAVID SARAVIA MD
--- NOTE | 2020-10-28 16:38 | EKG12_ITS ---
Test Reason : REPEAT EKG Blood Pressure : / mmHG Vent. Rate : 039 BPM Atrial Rate : 120 BPM P-R Int : 000 ms QRS Dur : 142 ms QT Int : 558 ms P-R-T Axes : 050 018 055 degrees QTc Int : 449 ms Sinus tachycardia with complete heart block and Idioventricular rhythm with occasional Premature vent ricular complexes Left bundle branch block Abnormal ECG Confirmed by RANI RIVAS, DAVID ([id number]), video editor KENYA CUMMINS ([id number]) on 10/31/2020 12:50:59 PM Referred By: ABHIJEET Confirmed By:DAVID SARAVIA MD
--- NOTE | 2020-10-28 16:41 | EX.ED.DYSGE1 ---
HPI History of Present Illness Chief Complaint: Chest Other Informant: patient and family Narrative Narrative: Patient presents from hospice for bradycardia. She states that she has not felt well for weeks. She has been tired. She has past medical history of Takotsubo DC and other heart problems. She finally decided, as she makes her own medical decision making according to her daughter, that she did not want to see physicians anymore. They try to get her home health care, but instead, she was enrolled in hospice. She went there last Wednesday, approximately 7 days ago. Over the weekend, she was very lightheaded, and fatigue. Her heart rate was found to be in the 20s. They held her beta-kenia which she takes for hypertension, and her heart rate was still in the 20s. It was recommended by her milk of lime slaker, that she come to the hospital to have a pacemaker placed. Past medical history does include diabetes, and previous left bundle branch block. Patient has decided that if there were something that could give her a year that she would be open to having any procedure performed. She denies any chest pain or shortness of breath. No fevers or chills. No nausea or vomiting. No abdominal pain. She endorses fatigue, and malaise, and a generalized weakness. [facility] Medical History Atherosclerotic heart disease of [place] coronary artery with other forms of angina pectoris (03/21/18) Hypertension Non-STEMI (non-ST elevated myocardial infarction) (03/21/18) Takotsubo cardiomyopathy (03/21/18) Home Medications aspirin 81 mg PO DAILY@0800 03/12/19 [History Last Taken 03/12/19] brimonidine-timolol 1 drp OPHTHALMIC (EYE) BID 03/12/19 [History Last Taken 03/12/19 08:00] latanoprost 1 drp EACH EYE QHS 03/12/19 [History Last Taken 03/12/19] metformin 500 mg PO BID 03/12/19 [History Last Taken 03/12/19] fluticasone propionate 50 mcg/actuation nasal spray,suspension 1 spray INTRANASAL DAILY 04/27/19 [History Last Taken Unknown] levothyroxine 50 mcg tablet 50 mcg PO DAILY 04/27/19 [History Last Taken Unknown] pravastatin 40 mg tablet 40 mg PO QHS #90 tab 09/07/19 [Rx Last Taken Unknown] isosorbide mononitrate 60 mg tablet,extended release 24 hr 60 mg PO BID #180 tab 11/22/19 [Rx Last Taken Unknown] hydrochlorothiazide 25 mg tablet 25 mg PO DAILY #90 tab 03/27/20 [Rx Last Taken Unknown] potassium chloride 20 mEq tablet,extended release(part/cryst) 20 meq PO BID #180 tab 04/15/20 [Rx Last Taken Unknown] hydralazine 50 mg tablet 50 mg PO TID #270 tab 04/25/20 [Rx Last Taken Unknown] mecobalamin (vitamin B12) 1,000 mcg chewable tablet 1,000 mcg PO DAILY 06/07/20 [History Last Taken Unknown] clopidogrel 75 mg tablet 75 mg PO DAILY #90 tab 06/19/20 [Rx Last Taken Unknown] losartan 50 mg tablet 50 mg PO BID #180 tab 08/28/20 [Rx Last Taken Unknown] nitroglycerin 0.4 mg sublingual tablet 0.4 mg SUBLINGUAL Q5-15M PRN #25 tab 08/28/20 [Rx Last Taken Unknown] metoprolol succinate 25 mg tablet,extended release 24 hr 25 mg PO DAILY #90 tab 10/07/20 [Rx Last Taken Unknown] Allergy/AdvReac Type Severity Reaction Status Date / Time amlodipine besylate Allergy Rash Verified 10/28/20 16:28 [From Norvasc] cephalexin monohydrate Allergy Hives Verified 10/28/20 16:28 [From Keflex] streptomycin [Streptomycin] Allergy Hives Verified 10/28/20 16:28 Sulfa (Sulfonamide Allergy Hives Verified 10/28/20 16:28 Antibiotics) Family History Father Heart disease Mother Breast cancer Sister Heart disease Surgical History History of cataract extraction History of cholecystectomy History of hysterectomy History of lumpectomy of left breast Social History (Updated 06/07/20 @ 12:41 by Henrik Butt CREDIT DEPARTMENT MANAGER, CREDIT DEPARTMENT MANAGER-C) Smoking Status: Never smoker alcohol intake: current alcohol intake frequency: holidays/special occasions only Alcohol type: wine caffeine: Yes Type: coffee Number of servings: 4 ROS ROS ED ROS Narrative Constitutional: No fever, no chills. Positive fatigue. HEENT: No sore throat. No neck pain. No loss of vision. No rhinorrhea. Cardiovascular: No chest pain. No palpitations. No pedal edema. Positive slow heart rate. Respiratory: No cough, no shortness of breath. Abdominal: No abdominal pain. No nausea. No vomiting. Genitourinary: No dysuria. No hematuria. Neurologic: No headaches. No dizziness. No lightheadedness. Skin: No rash. No change in color. EXAM Physical Exam Narrative Exam Narrative: Afebrile. Vital signs noted. HEENT: Normocephalic. Atraumatic. PERRL, EOMI. Neck soft and supple. Cardiovascular: Bradycardia in the 20s to 30s. No murmurs, rubs, or gallops appreciated. Respiratory: No tachypnea. Lungs clear to auscultation bilaterally. Gastrointestinal: Abdomen soft, nontender, with normoactive bowel sounds. No rebound or guarding. Neurological: Nonfocal, nonlateralizing. Skin: No rash. Normal color. No pallor. Musculoskeletal: No pedal edema. Full range of motion extremities. Const Vital Signs: 10/28/20 16:19 10/28/20 16:24 10/28/20 16:43 Temperature 98.0 F Temperature Source Oral Pulse Rate 27 L Respiratory Rate 22 H Respiratory Effort Normal Blood Pressure 140/64 H Blood Pressure Mean 89 Blood Pressure Source Blood Pressure Position Blood Pressure Location Pulse Ox 97 97 Oxygen Delivery Method Room Air Room Air 10/28/20 18:26 10/28/20 18:45 10/28/20 18:48 Temperature Temperature Source Pulse Rate 31 L 32 L Respiratory Rate 16 16 16 Respiratory Effort Blood Pressure 186/89 H 196/70 H Blood Pressure Mean 121 112 Blood Pressure Source Manual Blood Pressure Position Sitting Blood Pressure Location Right Arm Pulse Ox 97 Oxygen Delivery Method Room Air 10/28/20 19:06 10/28/20 19:09 10/28/20 19:16 Temperature Temperature Source Pulse Rate 36 L 33 L 37 L Respiratory Rate 14 14 14 Respiratory Effort Blood Pressure 198/64 H 190/64 H 189/62 H Blood Pressure Mean 108 106 104 Blood Pressure Source Blood Pressure Position Sitting Blood Pressure Location Right Arm Pulse Ox 97 97 Oxygen Delivery Method Room Air MDM MDM MDM Narrative Medical decision making narrative: Comprehensive work-up was pursued. Her initial EKG shows third-degree heart block at a rate of 28 bpm. She has a blood pressure that is 140 systolic. She is awake, alert, and mentating. Her CBC shows normal white count of 6.0 with hemoglobin stable at 12. CMP is grossly unremarkable. Initial high-sensitivity troponin is 55. Her BNP is elevated above 600, but her chest x-ray does not show CHF. She was placed on pacer pads. I discussed the patient with the milk of lime slaker on-call, Dr. King who would like dobutamine or Isopril started. I then discussed patient with Dr. Delgado for admission to the ICU. Patient is in stable but guarded condition. Second EKG was performed which shows continued third-degree heart block at 39 bpm. Lab Data Attestation: I reviewed the patient's lab results. Labs: Laboratory Results - last 24 hr 10/28/20 10/28/20 10/28/20 16:27 16:27 16:27 WBC 6.0 RBC 3.92 L Hgb 12.0 Hct 37.1 MCV 94.6 MCH 30.6 MCHC 32.3 RDW Std Deviation 47.0 H RDW Coeff of Johan 13.6 Plt Count 310 MPV 10.4 Immature Gran % (Auto) 0.300 Neut % (Auto) 42.4 L Lymph % (Auto) 46.8 H [place] % (Auto) 7.5 Eos % (Auto) 2.5 Baso % (Auto) 0.5 Absolute Neuts (auto) 2.5 Absolute Lymphs (auto) 2.80 Nucleated RBC % 0 Sodium 136 Potassium 4.3 Chloride 107 Carbon Dioxide 23.0 Anion Gap 6 BUN 37 H Creatinine 1.09 H Estim Creat Clear Calc 31.21 Est GFR (MDRD) Af Amer 61 Est GFR (MDRD) Non-Af 51 L BUN/Creatinine Ratio 33.9 H Glucose 143 H Calcium 9.0 Troponin I High Sens 55.4 H* B-Natriuretic Peptide 607.2 H Radiography Diagnostic Testing: Radiology Impression Chest X-Ray 10/28/20 16:54 IMPRESSION: No radiographic evidence of acute cardiopulmonary disease. at 1709 Reported and signed by: Brandon Martin MD Electronically Signed: Brandon Martin MD at 17:08 EDT Tel , Service support , Critical Care Time Critical Care Time: Yes Critical care time (excluding procedures): 30-74 minutes (33) Discharge Plan Triage Chief Complaint: Chest Other ED Provider: Naren Hale Dx/Rx/DC Orders Prescriptions: No Action levothyroxine 50 mcg tablet 50 mcg PO DAILY RF: 0 fluticasone propionate [Flonase Allergy Relief] 50 mcg/actuation spray,suspension 1 spray INTRANASAL DAILY RF: 0 hydralazine 50 mg tablet 50 mg PO TID Qty: 270 RF: 3 mecobalamin (vitamin B12) 1,000 mcg tablet,chewable 1,000 mcg PO DAILY RF: 0 latanoprost 1 DROP bottle 1 drp EACH EYE QHS RF: 0 metformin 500 MG tablet 500 mg PO BID RF: 0 aspirin 81 MG tablet,chewable 81 mg PO DAILY@0800 RF: 0 brimonidine-timolol 1 DROP bottle 1 drp ophthalmic (eye) BID RF: 0 pravastatin 40 mg tablet 40 mg PO QHS Qty: 90 RF: 3 isosorbide mononitrate 60 mg tablet extended release 24 hr 60 mg PO BID Qty: 180 RF: 3 hydrochlorothiazide 25 mg tablet 25 mg PO DAILY Qty: 90 RF: 3 potassium chloride 20 mEq tablet,ER particles/crystals 20 meq PO BID Qty: 180 RF: 3 clopidogrel 75 mg tablet 75 mg PO DAILY Qty: 90 RF: 3 nitroglycerin 0.4 mg tablet, sublingual 0.4 mg SUBLINGUAL Q5-15M PRN (Reason: chest pain) Qty: 25 RF: 3 losartan 50 mg tablet 50 mg PO BID Qty: 180 RF: 3 metoprolol succinate 25 mg tablet extended release 24 hr 25 mg PO DAILY Qty: 90 RF: 4 Primary Care Provider: Chris Fournier
[2020-10-28 16:52] LABS: Absolute Neutrophil Count 2.5 X10^3/uL (2.0-7.7); Basophil# 0.03 X10^3/uL; Basophil% 0.5 % (0-1); Eosinophil# 0.15 X10^3/uL; Eosinophils% 2.5 % (0-5); Hematocrit 37.1 % (37-47); Lymphocyte % 46.8 % (19-41); Mean Corp Hgb Conc 32.3 g/dL (32-36); Mean Corpuscular Hgb 30.6 pg (27.0-32.0); Mean Corpuscular Volume 94.6 fL (81-99); Mean Platelet Vol. 10.4 fl (6.2-12.0); Monocyte# 0.45 X10^3/uL; Monocyte% 7.5 % (0-10); NRBC Flagged by Analyzer 0 % (0-5); Neutrophil # 2.53 X10^3/uL (2.7-7.7); Neutrophil % 42.4 % (47-70); Platelet Count 310 K/mm3 (150-450); RBC Distribution Width CV 13.6 % (11.6-14.6); Red Blood Count 3.92 M/mm3 (4.2-5.4)
--- NOTE | 2020-10-28 16:54 | RAD_ITS ---
HISTORY: chest pain EXAMINATION/TECHNIQUE: XR Chest 1 View: Portable upright AP chest x-ray COMPARISON: 03/12/19 FINDINGS: LINES/DEVICES: External pacemaker pad overlies the right hemithorax. LUNGS: No consolidation, edema or effusion. No pneumothorax. MEDIASTINUM AND CARDIOVASCULAR STRUCTURES: Cardiac silhouette not enlarged. Central airways and mediastinal contour are unremarkable. BONES AND SOFT TISSUES: No acute bony abnormalities. Surgical remigio again seen in the left breast laterally. RAD/Chest 1 View (Portable) IMPRESSION: No radiographic evidence of acute cardiopulmonary disease. at 1709 Reported and signed by: Brandon Martin MD Electronically Signed: Brandon Martin MD at 17:08 EDT Tel , Service support ,
[2020-10-28 17:13] LABS: BNP,B-Type NATRIURETIC PEPTIDE 607.2 pg/mL (0-100)
[2020-10-28 17:20] LABS: Anion Gap 6 (5-15); BUN 37 mg/dL (7-18); BUN/Creat Ratio 33.9 RATIO (10-20); Chloride 107 mmol/L (98-107); Creatinine, Serum 1.09 mg/dL (0.55-1.02); EST Glomerular Filtration Rate 51 mL/min (>60); Est Glom Filt Rate - Afr Amer 61 mL/min (>60); Estimated Creatinine Clearance 31.21 ml/min; Glucose 143 mg/dL (74-106); Potassium 4.3 mmol/L (3.5-5.1); Sodium Level 136 mmol/L (136-145); Troponin-I HS 55.4 pg/mL (3.0-53.7)
--- NOTE | 2020-10-28 17:20 | ED.RN ---
lAB CALLED CRITICAL TROPONIN OF 55.4. DR GUZMAN
[2020-10-28] MEDS: DOBUTamine 500mg PM 500 MG/250 ML IV.SOLN. 5.2 MG CONT INF (18:26)
[2020-10-28] MEDS: hydrALAZINE 20 MG/ML Vial 10 MG IV (19:02)
--- NOTE | 2020-10-28 19:34 | PCM.HP.STD ---
HPI - General HPI Narrative AUSTEN MOTLEY, is a 84 F who presents to the emergency room after consultation by her hospice care physician Dr. Noel who recommended that she revoked hospice temporarily in order to get a pacemaker due to her bradycardia. Last week the patient apparently had 3 cavities filled at her dentist office and later in the week had a change in her heart rhythm. She had been placed into hospice care due to recent decline of health due to coronary artery disease, Takotsubo's cardiomyopathy and history of OR. Per patient's daughter who is power of risk control field representative she states the patient has had increasing fatigue recently and has not been herself. The patient is expressively DNR Comfort Care arrest and does not wish to change that at this time. Per cardiology consult a dobutamine drip was started patient is to be placed in the ICU for care and cardiac consult in the morning she will be made n.p.o. at midnight pending pacemaker placement. [facility] Medical History (Updated 10/28/20 @ 19:[address] Hernandez Delgado MD) Atherosclerotic heart disease of [place] coronary artery with other forms of angina pectoris (03/21/18) Hypertension Non-STEMI (non-ST elevated myocardial infarction) (03/21/18) Takotsubo cardiomyopathy (03/21/18) Home Medications aspirin 81 mg PO DAILY@0800 03/12/19 [History Last Taken 03/12/19] brimonidine-timolol 1 drp OPHTHALMIC (EYE) BID 03/12/19 [History Last Taken 03/12/19 08:00] latanoprost 1 drp EACH EYE QHS 03/12/19 [History Last Taken 03/12/19] metformin 500 mg PO BID 03/12/19 [History Last Taken 03/12/19] fluticasone propionate 50 mcg/actuation nasal spray,suspension 1 spray INTRANASAL DAILY 04/27/19 [History Last Taken Unknown] pravastatin 40 mg tablet 40 mg PO QHS #90 tab 09/07/19 [Rx Last Taken Unknown] isosorbide mononitrate 60 mg tablet,extended release 24 hr 60 mg PO BID #180 tab 11/22/19 [Rx Last Taken Unknown] hydrochlorothiazide 25 mg tablet 25 mg PO DAILY #90 tab 03/27/20 [Rx Last Taken Unknown] potassium chloride 20 mEq tablet,extended release(part/cryst) 20 meq PO BID #180 tab 04/15/20 [Rx Last Taken Unknown] mecobalamin (vitamin B12) 1,000 mcg chewable tablet 1,000 mcg PO DAILY 06/07/20 [History Last Taken Unknown] clopidogrel 75 mg tablet 75 mg PO DAILY #90 tab 06/19/20 [Rx Last Taken Unknown] losartan 50 mg tablet 50 mg PO BID #180 tab 08/28/20 [Rx Last Taken Unknown] nitroglycerin 0.4 mg sublingual tablet 0.4 mg SUBLINGUAL Q5-15M PRN #25 tab 08/28/20 [Rx Last Taken Unknown] metoprolol succinate 25 mg tablet,extended release 24 hr 25 mg PO DAILY #90 tab 10/07/20 [Rx Last Taken Unknown] hydralazine 50 mg PO TID 10/28/20 [History Last Taken 10/28/20] levothyroxine 75 mcg PO DAILY 10/28/20 [History Last Taken 10/28/20] nitrofurantoin monohyd/m-cryst 100 mg PO BID 10/28/20 [History Last Taken 10/28/20] Allergy/AdvReac Type Severity Reaction Status Date / Time amlodipine besylate Allergy Rash Verified 10/28/20 16:28 [From Norvasc] cephalexin monohydrate Allergy Hives Verified 10/28/20 16:28 [From Keflex] streptomycin [Streptomycin] Allergy Hives Verified 10/28/20 16:28 Sulfa (Sulfonamide Allergy Hives Verified 10/28/20 16:28 Antibiotics) Family History Father Heart disease Mother Breast cancer Sister Heart disease Surgical History History of cataract extraction History of cholecystectomy History of hysterectomy History of lumpectomy of left breast Social History (Updated 06/07/20 @ 12:41 by Henrik Butt ECOMMERCE MANAGER, ECOMMERCE MANAGER-C) Smoking Status: Never smoker alcohol intake: current alcohol intake frequency: holidays/special occasions only Alcohol type: wine caffeine: Yes Type: coffee Number of servings: 4 ROS Constitutional Constitutional: Denies fatigue or fever(s) Eyes Eyes: Denies change in vision ENT HEENT: Denies dysphagia Cardiovascular Cardiovascular: Reports chest pain Respiratory/Chest Respiratory/Chest: Reports shortness of breath at rest Gastrointestinal Gastrointestinal: Denies abdominal pain Genitourinary Genitourinary: Denies dysuria Musculoskeletal Musculoskeletal: Denies back pain Neurologic Neurologic: Reports dizziness; Denies numbness Psychiatric Psychiatric: Denies anxiety Vital Signs Vital Signs Vital Signs: 10/28/20 16:19 10/28/20 16:24 10/28/20 16:43 Temperature 98.0 F Temperature Source Oral Pulse Rate 27 L Respiratory Rate 22 H Respiratory Effort Normal Blood Pressure 140/64 H Blood Pressure Mean 89 Blood Pressure Source Blood Pressure Position Blood Pressure Location Pulse Ox 97 97 Oxygen Delivery Method Room Air Room Air 10/28/20 18:26 10/28/20 18:45 10/28/20 18:48 Temperature Temperature Source Pulse Rate 31 L 32 L Respiratory Rate 16 16 16 Respiratory Effort Blood Pressure 186/89 H 196/70 H Blood Pressure Mean 121 112 Blood Pressure Source Manual Blood Pressure Position Sitting Blood Pressure Location Right Arm Pulse Ox 97 Oxygen Delivery Method Room Air 10/28/20 19:06 10/28/20 19:09 10/28/20 19:16 Temperature Temperature Source Pulse Rate 36 L 33 L 37 L Respiratory Rate 14 14 14 Respiratory Effort Blood Pressure 198/64 H 190/64 H 189/62 H Blood Pressure Mean 108 106 104 Blood Pressure Source Blood Pressure Position Sitting Blood Pressure Location Right Arm Pulse Ox 97 97 Oxygen Delivery Method Room Air Weight Weight: 152 lb 8.958 oz Body Mass Index (BMI) 27.0 Physical Exam Const alert and no apparent distress General Appearance: cooperative HEENT normocephalic and head/scalp atraumatic Eyes PERRL Neck supple Resp clear to auscultation bilaterally Cardio S1 normal heart sound and S2 normal heart sound Rate: bradycardia GI normal to inspection, nondistended, normoactive bowel sounds Extremity normal capillary refill Neuro CN's II-XII intact bilaterally Psych affect normal Appearance: appropriate Results Lab / Micro Data Result Diagrams: 10/28/20 16:27 10/28/20 16:27 Labs: Laboratory Results - last 24 hr 10/28/20 16:27: WBC 6.0, RBC 3.92 L, Hgb 12.0, Hct 37.1, MCV 94.6, MCH 30.6, MCHC 32.3, RDW Std Deviation 47.0 H, RDW Coeff of Johan 13.6, Plt Count 310, MPV 10.4, Immature Gran % (Auto) 0.300, Neut % (Auto) 42.4 L, Lymph % (Auto) 46.8 H, [place] % (Auto) 7.5, Eos % (Auto) 2.5, Baso % (Auto) 0.5, Absolute Neuts (auto) 2.5, Absolute Lymphs (auto) 2.80, Nucleated RBC % 0 10/28/20 16:27: Sodium 136, Potassium 4.3, Chloride 107, Carbon Dioxide 23.0, Anion Gap 6, BUN 37 H, Creatinine 1.09 H, Estim Creat Clear Calc 31.21, Est GFR (MDRD) Af Amer 61, Est GFR (MDRD) Non-Af 51 L, BUN/Creatinine Ratio 33.9 H, Glucose 143 H, Calcium 9.0, Troponin I High Sens 55.4 H* 10/28/20 16:27: B-Natriuretic Peptide 607.2 H Radiology Impression Chest X-Ray 10/28/20 16:54 IMPRESSION: No radiographic evidence of acute cardiopulmonary disease. at 1709 Reported and signed by: Brandon Martin MD Electronically Signed: Brandon Martin MD at 17:08 EDT Tel , Service support , Assessment & Plan Assessment/Plan (1) Chest pain: (2) HLD (hyperlipidemia): QUALIFIERS: Hyperlipidemia type: unspecified Qualified Code(s): E78.5 - Hyperlipidemia, unspecified (3) Hypothyroidism: QUALIFIERS: Hypothyroidism type: unspecified Qualified Code(s): E03.9 - Hypothyroidism, unspecified (4) Diabetes mellitus, type II: QUALIFIERS: Diabetes mellitus long-term insulin use: without long-term use Diabetes mellitus complication status: with unspecified complications Qualified Code(s): E11.8 - Type 2 diabetes mellitus with unspecified complications (5) Hypertension: QUALIFIERS: Hypertension type: essential hypertension Qualified Code(s): I10 - Essential (primary) hypertension (6) Atherosclerotic heart disease of [place] coronary artery with other forms of angina pectoris: (7) Takotsubo cardiomyopathy: (8) Non-STEMI (non-ST elevated myocardial infarction): (9) Bradycardia: PLAN: 1. Bradycardia?admit patient to ICU continue DNR order, consult cardiology, make patient n.p.o. at midnight check CBC BMP, INR in a.m. 2. Chest pain?cycle cardiac enzymes?currently denies pain 3. Hypothyroidism?continue current medication 4. Hyperlipidemia?continue statin medication 5. DVT prophylaxis?low molecular weight heparin Suspect patient will resume hospice care treatment after receiving pacemaker after discharge. Charges/Coding Visit Charges Inpatient E&M: 29951 Init Hosp L3
[2020-10-28 21:12] LABS: Troponin-I HS 312.4 pg/mL (3.0-53.7)
--- NOTE | 2020-10-28 21:28 | NURSING ---
Pharmacy called regarding Isoproterenol availability per Dr King order. Not available at this time.
--- NOTE | 2020-10-28 21:30 | ECHOL_ITS ---
Reason For Study: ARRHYTHMIA Procedure This was a limited 2D transthoracic echocardiogram. Exam performed portable in ICU/CCU. Left Ventricle Mildly dilated left ventricle. The estimated ejection fraction is Ef 50-55 %. Right Ventricle Normal right ventricle. Normal systolic function. Atria Normal left atrium. Normal right atrium. Mitral Valve There is mild mitral annular calcification. Tricuspid Valve Normal tricuspid valve. Aortic Valve Aortic sclerosis, no stenosis. Pulmonic Valve The pulmonic valve is not well visualized. Great Vessels Normal aortic root. Pericardium/Pleural No pericardial effusion. MMode/2D Measurements & Calculations LVIDd: 4.4 cm IVSd: 1.2 cm LVAd ap4: 27.4 cm2 LVIDs: 2.5 cm LVPWd: 1.1 cm LVLd ap4: 8.5 cm FS: 42.5 % EDV(MOD-sp4): 73.8 ml EDV(sp4-el): 75.2 ml LVAs ap4: 17.0 cm2 LVLs ap4: 6.8 cm ESV(MOD-sp4): 36.4 ml ESV(sp4-el): 36.4 ml EF(MOD-sp4): 50.7 % EF(sp4-el): 51.6 % LVAd ap2: 22.8 cm2 SV(MOD-sp4): 37.4 ml SV(MOD-sp2): 31.2 ml LVLd ap2: 7.8 cm EDV(MOD-sp2): 54.2 ml EDV(sp2-el): 56.8 ml LVAs ap2: 13.3 cm2 LVLs ap2: 6.5 cm ESV(MOD-sp2): 23.0 ml ESV(sp2-el): 23.1 ml EF(MOD-sp2): 57.5 % SV(sp4-el): 38.8 ml Doppler Measurements & Calculations TR max stefanie: 276.2 cm/sec TR max P.5 mmHg ECHO/Echo, Limited Study Interpretation Summary The estimated ejection fraction is Ef 50-55 %. Ordering Physician: Xochitl King Referring Physician: CASSIDY GAVIN Performed By: Zeina Alston, JERRY, RVT
[2020-10-28] MEDS: Atropine Sulfate 1 MG/10 ML Syringe IV (21:50)
[2020-10-28] MEDS: DOPamine IV 800 MG/250 ML IV.SOLN. CONT INF (21:56)
[2020-10-28] MEDS: Atorvastatin Calcium 40 MG Tablet PO (22:28)
[2020-10-28 22:46] LABS: Partial Thromboplast Time 30.3 Seconds (24.1-36.2)
[2020-10-28] MEDS: Heparin Injection (Vial) 5,000 UNIT/ML VIAL 4500 UNIT IV (22:55)
[2020-10-28] MEDS: HEPARIN/D5w 25,000 UNITS 25,000 UNITS/250 ML IV.SOLN. 10 UNITS IV (22:57)
[2020-10-28 23:01] LABS: Troponin-I HS 367.7 pg/mL (3.0-53.7)
[2020-10-29] VITALS (37 sets, daily range): BP systolic 138–226; BP diastolic 57–156; PULSE 32–61; RESP 16–24; TEMP 36.8–37.6; O2SAT 94–97
[2020-10-29 00:40] LABS: International Normalized Ratio 1.2; Prothrombin Time (Protime)PT. 14.3 SECONDS (11.7-14.9)
--- NOTE | 2020-10-29 00:45 | NURSING ---
pt to laborer car barn at this time
--- NOTE | 2020-10-29 01:25 | PRO.PCM_ITS ---
Procedure Report Date of Procedure: 10/29/20 Temporary pacemaker placement Preprocedure diagnosis; 84-year-old patient with known history of Takotsubo syndrome diagnosed 2018 recovered Had bradycardia with complete heart block seen and evaluated in the ER. She was symptomatic feeling very dizzy lightheaded confused and nauseated. Initially she was started on dopamine however heart heart rate was distal less than 30. Electrocardiogram showed complete heart block with left bundle branch block which is old Consent; Risk and benefit of procedure explained in detail informed consent obtained and signed and placed in the chart Access right common femoral vein with placement of 7 Czech sheath. Under fluoroscopic guidance we will proceed with balloon tipped 5 Czech temporary pacemaker advanced to the right atrium across the tricuspid valve and placed in the right ventricle Successful pacing was achieved and was left at 5 AM VVI with a rate of 60 she remained stable and tolerated the procedure very well with no complication Conclusion and recommendation; Successful placement of temporary pacemaker for a patient who had underlying left bundle branch block with complete heart block With marked sinus bradycardia and A-V dissociation and a junctional bradycardia. No complication in the Director Of Dementia Operations, patient will be evaluated by echocardiogram to assess LV function Patient will be transferred for permanent pacemaker placement Xochitl King MD,FACC,[facility]
--- NOTE | 2020-10-29 01:41 | CON.PCM.CA_ITS ---
Assessment & Plan Assessment/Plan (1) Bradycardia: (2) HLD (hyperlipidemia): QUALIFIERS: Hyperlipidemia type: unspecified Qualified Code(s): E78.5 - Hyperlipidemia, unspecified (3) Diabetes mellitus, type II: QUALIFIERS: Diabetes mellitus fci insulin use: without passenger rate clerk use Diabetes mellitus complication status: with unspecified complications Qualified Code(s): E11.8 - Type 2 diabetes mellitus with unspecified complications (4) Takotsubo cardiomyopathy: (5) Non-STEMI (non-ST elevated myocardial infarction): (6) Complete heart block: PLAN: 84-year-old patient who was in hospice care and released by her physician and transferred over here at [facility] for evaluation of complete heart block and a placement of pacemaker Evidently patient has recent dental work-up and she was not feeling well fatigue dizziness according to the daughter who had a power of prosecuting attorney. Her son accompanies her to the hospital. No symptoms of chest pain reported Patient had a history of Takotsubo syndrome diagnosed in 2018 with cardiac catheterization showed normal coronary arteries severe LV systolic dysfunction ejection fraction in 10-15% subsequent echocardiographic and nuclear stress test revealed significant improvement in LV function with EF around 60% within normalpresentation is with new event of complete heart block and she has underlying left bundle branch block which is old Plan recommendations; 1. Initially with the patient on dopamine however she was still not feeling well nauseated very dizzy lightheaded and would not be able to tolerate transcutaneous pacer Based on these findings we will proceed with a temporary pacemaker placement 2. Noted she had elevated cardiac biomarkers/high sensitive troponin patient was started on heparin, atorvastatin, continue on Plavix and aspirin 3. Beta-kenia has been on hold 4. We will evaluate by echocardiogram And will plan for transfer to cardiac facility for placement of permanent pa calixtoaker Cardiac care plan and recommendation of a pacemaker explained to the son. Xochitl King MD,[facility] HPI Consult Data Date of Consult: 10/29/20 HPI Narrative HPI Narrative: AUSTEN MOTLEY, is a 84 F who presents [facility] Medical History (Updated 10/29/20 @ 01:[address] Xochitl King MD) Atherosclerotic heart disease of [place] coronary artery with other forms of angina pectoris (03/21/18) Hypertension Non-STEMI (non-ST elevated myocardial infarction) (03/21/18) Takotsubo cardiomyopathy (03/21/18) Home Medications aspirin 81 mg PO DAILY@199903/12/19 [History Last Taken 10/27/20] brimonidine-timolol 1 drp OPHTHALMIC (EYE) BID 03/12/19 [History Last Taken 10/28/20] latanoprost 1 drp EACH EYE QHS 03/12/19 [History Last Taken 10/27/20] metformin 500 mg PO BID 03/12/19 [History Last Taken 10/28/20] fluticasone propionate 50 mcg/actuation nasal spray,suspension 1 spray INTRANASAL DAILY 04/27/19 [History Last Taken Unknown] pravastatin 40 mg tablet 40 mg PO QHS #90 tab 09/07/19 [Rx Last Taken 10/27/20] isosorbide mononitrate 60 mg tablet,extended release 24 hr 60 mg PO BID #180 tab 11/22/19 [Rx Last Taken 10/28/20] hydrochlorothiazide 25 mg tablet 25 mg PO DAILY #90 tab 03/27/20 [Rx Last Taken 10/28/20] potassium chloride 20 mEq tablet,extended release(part/cryst) 20 meq PO BID #180 tab 04/15/20 [Rx Last Taken 10/28/20] mecobalamin (vitamin B12) 1,000 mcg chewable tablet 1,000 mcg PO DAILY 06/07/20 [History Last Taken 10/28/20] clopidogrel 75 mg tablet 75 mg PO DAILY #90 tab 06/19/20 [Rx Last Taken 10/28/20] losartan 50 mg tablet 50 mg PO BID #180 tab 08/28/20 [Rx Last Taken 10/28/20] nitroglycerin 0.4 mg sublingual tablet 0.4 mg SUBLINGUAL Q5-15M PRN #25 tab 08/28/20 [Rx Last Taken Unknown] metoprolol succinate 25 mg tablet,extended release 24 hr 25 mg PO DAILY #90 tab 10/07/20 [Rx Last Taken 10/26/20] hydralazine 50 mg PO TID 10/28/20 [History Last Taken 10/28/20] levothyroxine 75 mcg PO DAILY 10/28/20 [History Last Taken 10/28/20] nitrofurantoin monohyd/m-cryst 100 mg PO BID 10/28/20 [History Last Taken 10/28/20] Allergy/AdvReac Type Severity Reaction Status Date / Time amlodipine besylate Allergy Rash Verified 10/28/20 16:28 [From Norvasc] cephalexin monohydrate Allergy Hives Verified 10/28/20 16:28 [From Keflex] streptomycin [Streptomycin] Allergy Hives Verified 10/28/20 16:28 Sulfa (Sulfonamide Allergy Hives Verified 10/28/20 16:28 Antibiotics) Family History Father Heart disease Mother Breast cancer Sister Heart disease Surgical History History of cataract extraction History of cholecystectomy History of hysterectomy History of lumpectomy of left breast Social History Smoking Status: Never smoker alcohol intake: current alcohol intake frequency: holidays/special occasions only Alcohol type: wine caffeine: Yes Type: coffee Number of servings: 4 Physical Exam Narrative 84-year-old patient very confused Denies symptoms of chest pain Examination performed bedside along with her son Cardiovascular lamination her patient monitor showed complete heart block with a heart rate less than 30 severe bradycardia with underlying left bundle branch block S1-S2 is regular There is no murmur Chest examination clear to auscultation Abdomen soft Central nervous system exam no focal neurological deficit. Objective Data Vital Signs: Vital Signs Temp Pulse Resp BP Pulse Ox 98.3 F 32 L 22 H 203/156 H 96 10/29/20 00:00 10/29/20 00:15 10/29/20 00:15 10/29/20 00:15 10/29/20 00:15 Oxygen Delivery Method Room Air Weight: 138 lb 14.259 oz Body Mass Index (BMI) 24.5 Intake & Output: Intake and Output for Last 24 Hours 10/27/20 10/28/20 10/29/20 23:59 23:59 23:59 Intake Total 20.71 / 22.19 41.84 / 41.84 Output Total 450 / 450 Balance 20.71 / -427.81 -408.16 / -408.16 Lab / Micro Data Result Diagrams: 10/28/20 16:27 10/28/20 16:27 Labs: Laboratory Results - last 24 hr 10/28/20 16:27: WBC 6.0, RBC 3.92 L, Hgb 12.0, Hct 37.1, MCV 94.6, MCH 30.6, MCHC 32.3, RDW Std Deviation 47.0 H, RDW Coeff of Johan 13.6, Plt Count 310, MPV 10.4, Immature Gran % (Auto) 0.300, Neut % (Auto) 42.4 L, Lymph % (Auto) 46.8 H, [place] % (Auto) 7.5, Eos % (Auto) 2.5, Baso % (Auto) 0.5, Absolute Neuts (auto) 2.5, Absolute Lymphs (auto) 2.80, Nucleated RBC % 0 10/28/20 16:27: Sodium 136, Potassium 4.3, Chloride 107, Carbon Dioxide 23.0, Anion Gap 6, BUN 37 H, Creatinine 1.09 H, Estim Creat Clear Calc 31.21, Est GFR (MDRD) Af Amer 61, Est GFR (MDRD) Non-Af 51 L, BUN/Creatinine Ratio 33.9 H, Glucose 143 H, Calcium 9.0, Troponin I High Sens 55.4 H* 10/28/20 16:27: B-Natriuretic Peptide 607.2 H 10/28/20 20:20: Troponin I High Sens 312.4 H* 10/28/20 22:00: Troponin I High Sens 367.7 H* 10/28/20 22:00: APTT 30.3 10/28/20 22:00: PT 14.3, INR 1.2 Micro: Microbiology 10/28/20 19:40 Mucosa - Nose SARS-CoV-2 Antigen (Rapid) - Final Cardiology Labs/Tests 10/28/20 16:27: WBC 6.0, RBC 3.92 L, Hgb 12.0, Hct 37.1, MCV 94.6, MCH 30.6, MCHC 32.3, Plt Count 310, MPV 10.4, Immature Gran % (Auto) 0.300, Neut % (Auto) 42.4 L, Lymph % (Auto) 46.8 H, [place] % (Auto) 7.5, Eos % (Auto) 2.5, Baso % (Auto) 0.5, Absolute Neuts (auto) 2.5, Nucleated RBC % 0 10/28/20 16:27: Sodium 136, Potassium 4.3, Chloride 107, Carbon Dioxide 23.0, Anion Gap 6, BUN 37 H, Creatinine 1.09 H, Est GFR (MDRD) Af Amer 61, Est GFR (MDRD) Non-Af 51 L, BUN/Creatinine Ratio 33.9 H, Glucose 143 H, Calcium 9.0 10/28/20 16:27: B-Natriuretic Peptide 607.2 H 10/28/20 22:00: APTT 30.3 10/28/20 22:00: PT 14.3, INR 1.2 Rhythm: High-grade third-degree AV block EKG: Left bundle branch block, complete heart block Radiography Diagnostic Testing: Radiology Impression Chest X-Ray 10/28/20 16:54 IMPRESSION: No radiographic evidence of acute cardiopulmonary disease. at 1709 Reported and signed by: Brandon Martin MD Electronically Signed: Brandon Martin MD at 17:08 EDT Tel , Service support ,
[2020-10-29 02:37] LABS: Troponin-I HS 353.6 pg/mL (3.0-53.7)
[2020-10-29] MEDS: Nitroglycerin Infusion 250 ML 3 MG CONT INF (05:47)
[2020-10-29 05:58] LABS: Absolute Neutrophil Count 4.2 X10^3/uL (2.0-7.7); Basophil# 0.02 X10^3/uL; Basophil% 0.3 % (0-1); Eosinophil# 0.01 X10^3/uL; Eosinophils% 0.2 % (0-5); Hematocrit 34.7 % (37-47); Hemoglobin 11.7 g/dL (12.0-15.0); Lymphocyte % 27.2 % (19-41); Mean Corp Hgb Conc 33.7 g/dL (32-36); Mean Corpuscular Hgb 30.6 pg (27.0-32.0); Mean Corpuscular Volume 90.8 fL (81-99); Mean Platelet Vol. 10.1 fl (6.2-12.0); Monocyte# 0.35 X10^3/uL; Monocyte% 5.6 % (0-10); NRBC Flagged by Analyzer 0 % (0-5); Neutrophil # 4.15 X10^3/uL (2.7-7.7); Neutrophil % 66.2 % (47-70); Platelet Count 285 K/mm3 (150-450); RBC Distribution Width CV 13.4 % (11.6-14.6); RBC Distribution Width SD 44.4 fl (35.1-43.9); Red Blood Count 3.82 M/mm3 (4.2-5.4); White Blood Count 6.3 K/mm3 (4.4-11.0)
[2020-10-29 06:07] LABS: International Normalized Ratio 1.2
[2020-10-29 06:12] LABS: Anion Gap 8 (5-15); BUN 35 mg/dL (7-18); BUN/Creat Ratio 39.1 RATIO (10-20); Calcium,Total 8.6 mg/dL (8.5-10.1); Chloride 107 mmol/L (98-107); EST Glomerular Filtration Rate 63 mL/min (>60); Est Glom Filt Rate - Afr Amer 77 mL/min (>60); Glucose 132 mg/dL (74-106); Magnesium 1.6 mg/dL (1.6-2.6); Phosphorus 3.8 mg/dL (2.5-4.9); Sodium Level 138 mmol/L (136-145)
[2020-10-29 06:18] LABS: Partial Thromboplast Time 128.2 Seconds (24.1-36.2)
--- NOTE | 2020-10-29 07:24 | PCM.PN.HOSP ---
Subjective Subjective This 34-year-old female with history of blood sugar syndrome in 2018 admitted for evaluation of bradycardia with complete heart block was brought to ED by EMS from hospice care with dizziness on standing, confusion and nausea. ECG shows complete heart block with left bundle branch block, old. Initially patient was placed on dopamine still heart rate was less than 30, therefore temporary pacemaker was inserted through right femoral vein. Palliative/hospice care physician Dr. Noel said that she revoked hospice care. She was in the hospice care due to decline in health from coronary artery disease Takotsubo's cardiomyopathy. Objective Data Objective Data Vital Signs: Vital Signs Temp Pulse Resp BP Pulse Ox 99.1 F 60 20 H 226/94 H 96 10/29/20 03:00 10/29/20 05:59 10/29/20 05:00 10/29/20 05:47 10/29/20 05:00 Oxygen Delivery Method Room Air Weight: 141 lb 5.061 oz Body Mass Index (BMI) 24.5 Intake & Output: Intake and Output for Last 24 Hours 10/27/20 10/28/20 10/29/20 23:59 23:59 23:59 Intake Total 20.71 / 22.19 110.32 / 110.32 Output Total 950 / 950 Balance 20.71 / -427.81 -839.68 / -839.68 Lab / Micro Data Result Diagrams: 10/29/20 05:45 10/29/20 05:45 Labs: Laboratory Results - last 24 hr 10/28/20 16:27: WBC 6.0, RBC 3.92 L, Hgb 12.0, Hct 37.1, MCV 94.6, MCH 30.6, MCHC 32.3, RDW Std Deviation 47.0 H, RDW Coeff of Johan 13.6, Plt Count 310, MPV 10.4, Immature Gran % (Auto) 0.300, Neut % (Auto) 42.4 L, Lymph % (Auto) 46.8 H, [place] % (Auto) 7.5, Eos % (Auto) 2.5, Baso % (Auto) 0.5, Absolute Neuts (auto) 2.5, Absolute Lymphs (auto) 2.80, Nucleated RBC % 0 10/28/20 16:27: Sodium 136, Potassium 4.3, Chloride 107, Carbon Dioxide 23.0, Anion Gap 6, BUN 37 H, Creatinine 1.09 H, Estim Creat Clear Calc 31.21, Est GFR (MDRD) Af Amer 61, Est GFR (MDRD) Non-Af 51 L, BUN/Creatinine Ratio 33.9 H, Glucose 143 H, Calcium 9.0, Troponin I High Sens 55.4 H* 10/28/20 16:27: B-Natriuretic Peptide 607.2 H 10/28/20 20:20: Troponin I High Sens 312.4 H* 10/28/20 22:00: Troponin I High Sens 367.7 H* 10/28/20 22:00: APTT 30.3 10/28/20 22:00: PT 14.3, INR 1.2 10/29/20 02:05: Troponin I High Sens 353.6 H* 10/29/20 05:45: WBC 6.3, RBC 3.82 L, Hgb 11.7 L, Hct 34.7 L, MCV 90.8, MCH 30.6, MCHC 33.7, RDW Std Deviation 44.4 H, RDW Coeff of Johan 13.4, Plt Count 285, MPV 10.1, Immature Gran % (Auto) 0.500, Neut % (Auto) 66.2, Lymph % (Auto) 27.2, [place] % (Auto) 5.6, Eos % (Auto) 0.2, Baso % (Auto) 0.3, Absolute Neuts (auto) 4.2, Absolute Lymphs (auto) 1.70, Nucleated RBC % 0 10/29/20 05:45: PT Cancelled, INR Cancelled 10/29/20 05:45: Sodium 138, Potassium 4.0, Chloride 107, Carbon Dioxide 23.0, Anion Gap 8, BUN 35 H, Creatinine 0.90, Estim Creat Clear Calc 37.80, Est GFR (MDRD) Af Amer 77, Est GFR (MDRD) Non-Af 63, BUN/Creatinine Ratio 39.1 H, Glucose 132 H, Calcium 8.6, Phosphorus 3.8, Magnesium 1.6 10/29/20 05:45: PT 14.7, INR 1.2, APTT 128.2 H* Micro: Microbiology 10/29/20 03:05 Stool C. difficile DNA Amplification - Final 10/28/20 19:40 Mucosa - Nose SARS-CoV-2 Antigen (Rapid) - Final Radiography Diagnostic Testing: Radiology Impression Chest X-Ray 10/28/20 16:54 IMPRESSION: No radiographic evidence of acute cardiopulmonary disease. at 1709 Reported and signed by: Brandon Martin MD Electronically Signed: Brandon Martin MD at 17:08 EDT Tel , Service support , Assessment & Plan Assessment/Plan (1) Complete heart block: (2) Bradycardia: PLAN: 1. Bradycardia?admit patient to ICU continue DNR order, consult cardiology, make patient n.p.o. at midnight check CBC BMP, INR in a.m. 2. Chest pain?cycle cardiac enzymes?currently denies pain 3. Hypothyroidism?continue current medication 4. Hyperlipidemia?continue statin medication 5. DVT prophylaxis?low molecular weight heparin Suspect patient will resume hospice care treatment after receiving pacemaker after discharge.
--- NOTE | 2020-10-29 09:41 | CASEMGMT ---
RN CM NOTE: Pt has MCR and can go to any tertiary facility of choice. John BSN RN CM
[2020-10-29] MEDS: CHLORHEXIDINE GLUC 2% CLOTH 1 EACH TOWELETTE TOPICAL (10:38)
[2020-10-29 10:40] LABS: Bedside Glucose 155 mg/dL (70-110)
--- NOTE | 2020-10-29 11:35 | PCM.DC.SUM ---
Providers Date of Admission: 10/28/20 Primary Care Physician: Dr. Chris Fournier, Reason For Visit: HEART BLOCK Diagnosis Discharge Diagnosis (1) Complete heart block: Status: Acute Code(s): I44.2 - Atrioventricular block, complete (2) Bradycardia: Status: Acute Code(s): R00.1 - Bradycardia, unspecified Medications at Discharge Home Medications aspirin 81 mg PO DAILY@199903/12/19 brimonidine-timolol 1 drp OPHTHALMIC (EYE) BID 03/12/19 latanoprost 1 drp EACH EYE QHS 03/12/19 metformin 500 mg PO BID 03/12/19 fluticasone propionate 50 mcg/actuation nasal spray,suspension 1 spray INTRANASAL DAILY 04/27/19 pravastatin 40 mg tablet 40 mg PO QHS #90 tab 09/07/19 isosorbide mononitrate 60 mg tablet,extended release 24 hr 60 mg PO BID #180 tab 11/22/19 hydrochlorothiazide 25 mg tablet 25 mg PO DAILY #90 tab 03/27/20 potassium chloride 20 mEq tablet,extended release(part/cryst) 20 meq PO BID #180 tab 04/15/20 mecobalamin (vitamin B12) 1,000 mcg chewable tablet 1,000 mcg PO DAILY 06/07/20 clopidogrel 75 mg tablet 75 mg PO DAILY #90 tab 06/19/20 losartan 50 mg tablet 50 mg PO BID #180 tab 08/28/20 nitroglycerin 0.4 mg sublingual tablet 0.4 mg SUBLINGUAL Q5-15M PRN #25 tab 08/28/20 metoprolol succinate 25 mg tablet,extended release 24 hr 25 mg PO DAILY #90 tab 10/07/20 hydralazine 50 mg PO TID 10/28/20 levothyroxine 75 mcg PO DAILY 10/28/20 nitrofurantoin monohyd/m-cryst 100 mg PO BID 10/28/20 Hospital Course Summary of Care Provided Hospital Course: This 34-year-old female with history of blood sugar syndrome in 2018 admitted for evaluation of bradycardia with complete heart block was brought to ED by EMS from hospice care with dizziness on standing, confusion and nausea. No chest pain/pressure. ECG shows complete heart block with left bundle branch block, old. Initially patient was placed on dopamine still heart rate was less than 30, therefore temporary pacemaker was inserted through right femoral vein. Palliative/hospice care physician Dr. Noel said that she revoked hospice care. She was in the hospice care due to decline in health from coronary artery disease Takotsubo's cardiomyopathy. Patient was admitted in ICU. 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 Patient has a history of Takotsubo cardiomyopathy as per cardiac cath in 2018 showed normal coronary arteries with severe LV systolic dysfunction, EF 10 to 25% with subsequent echocardiographic (May 2018) improvement in LV function with EF around 60%. Patient also had pharmacological nuclear stress test which was reported within normal limit, EF 75%. She has old left bundle branch block. Patient has elevated high-sensitivity troponin therefore started on IV heparin, atorvastatin, Plavix and aspirin. Beta-kenia on hold. Repeat 2D echo was done reported EF 50 to 55%, mildly dilated LV, aortic sclerosis but no stenosis. Transfer call to [facility] was made by Dr. King of the cattle tester and the patient was transferred to [facility]. Physical Exam Narrative Physical exam General: Alert, Oriented x3, Cooperative HEENT: Atraumatic, PERRLA, EOMI, Normocephalic. Mild hard of hearing Oral: No Gingival or Mucosal Lesions/ Ulcerations Neck: Supple, No JVD, Negative Carotid Bruits Lungs: Air entry diminished in bilateral lung bases. No crepitation/rhonchi Cardiovascular: Captured pacemaker rhythm, right femoral vein transvenous pacemaker. No murmurs Abdomen: Bowel Sounds Present, Soft, Non Tender, Non-Distended : No renal angle tenderness. No suprapubic tenderness. Extremities: No edema, Capillary Refill Less than 3 Seconds Skin: No rashes, No breakdown Musculoskeletal: No Tenderness to Palpation of Joints or Extremities Neurological: Cranial nerves II-XII grossly intact, Deep Tendon Reflexes 2+/4 and Symmetrical, Neuro grossly intact Psych/Mental Status: Flat affect, anxiety Medical Records Data Medical Nutrition Assessment Dietitian: Nutrition Therapy Diagnosis Start: 10/29/20 10:36 Freq: Status: Active Protocol: Document 10/29/20 10:40 AG (Rec: 10/29/20 10:41 AG [id number]) Nutrition Malnutrition Evidence of Malnutrition Exists No Intake Problem Inadequate Oral Intake Etiology r/t need for NPO status d/t planned procedure Signs/Symptoms as evidenced by no nutritional intake since admission Status Active Problem Recommendation Dietitian Recommendations/Changes regular diet when medically indicated. Weight / BMI Weight Weight: 141 lb 5.061 oz Body Mass Index (BMI) 24.5 ABG / Lab / Microbiology Data Result Diagrams: 10/29/20 05:45 10/29/20 05:45 Laboratory: Laboratory Results - last 24 hr 10/28/20 16:27: WBC 6.0, RBC 3.92 L, Hgb 12.0, Hct 37.1, MCV 94.6, MCH 30.6, MCHC 32.3, RDW Std Deviation 47.0 H, RDW Coeff of Jhoan 13.6, Plt Count 310, MPV 10.4, Immature Gran % (Auto) 0.300, Neut % (Auto) 42.4 L, Lymph % (Auto) 46.8 H, [place] % (Auto) 7.5, Eos % (Auto) 2.5, Baso % (Auto) 0.5, Absolute Neuts (auto) 2.5, Absolute Lymphs (auto) 2.80, Nucleated RBC % 0 10/28/20 16:27: Sodium 136, Potassium 4.3, Chloride 107, Carbon Dioxide 23.0, Anion Gap 6, BUN 37 H, Creatinine 1.09 H, Estim Creat Clear Calc 31.21, Est GFR (MDRD) Af Amer 61, Est GFR (MDRD) Non-Af 51 L, BUN/Creatinine Ratio 33.9 H, Glucose 143 H, Calcium 9.0, Troponin I High Sens 55.4 H* 10/28/20 16:27: B-Natriuretic Peptide 607.2 H 10/28/20 20:20: Troponin I High Sens 312.4 H* 10/28/20 22:00: Troponin I High Sens 367.7 H* 10/28/20 22:00: APTT 30.3 10/28/20 22:00: PT 14.3, INR 1.2 10/29/20 02:05: Troponin I High Sens 353.6 H* 10/29/20 05:45: WBC 6.3, RBC 3.82 L, Hgb 11.7 L, Hct 34.7 L, MCV 90.8, MCH 30.6, MCHC 33.7, RDW Std Deviation 44.4 H, RDW Coeff of Johan 13.4, Plt Count 285, MPV 10.1, Immature Gran % (Auto) 0.500, Neut % (Auto) 66.2, Lymph % (Auto) 27.2, [place] % (Auto) 5.6, Eos % (Auto) 0.2, Baso % (Auto) 0.3, Absolute Neuts (auto) 4.2, Absolute Lymphs (auto) 1.70, Nucleated RBC % 0 10/29/20 05:45: PT Cancelled, INR Cancelled 10/29/20 05:45: Sodium 138, Potassium 4.0, Chloride 107, Carbon Dioxide 23.0, Anion Gap 8, BUN 35 H, Creatinine 0.90, Estim Creat Clear Calc 37.80, Est GFR (MDRD) Af Amer 77, Est GFR (MDRD) Non-Af 63, BUN/Creatinine Ratio 39.1 H, Glucose 132 H, Calcium 8.6, Phosphorus 3.8, Magnesium 1.6 10/29/20 05:45: PT 14.7, INR 1.2, APTT 128.2 H* 10/29/20 10:35: POC Glucose 155 H Microbiology: Microbiology 10/29/20 03:05 Stool C. difficile DNA Amplification - Final 10/28/20 19:40 Mucosa - Nose SARS-CoV-2 Antigen (Rapid) - Final Radiography Diagnostic Testing: Radiology Impression Chest X-Ray 10/28/20 16:54 IMPRESSION: No radiographic evidence of acute cardiopulmonary disease. at 1709 Reported and signed by: Brandon Martin MD Electronically Signed: Brandon Martin MD at 17:08 EDT Tel , Service support , Meaningful Use Info Meaningful Use Diagnoses (Choose all that apply): None applicable Discharge Plan Admission Admit Date/Time: 10/28/20 19:42 Primary Reason for Your Visit: AV dissociation with complete heart block Attending Provider: Miguel Medrano Primary Care Provider: Chris Fournier Instructions Patient Instructions: ED Chest Pain, Noncardiac Discharge Orders/Prescriptions Prescriptions: No Action fluticasone propionate [Flonase Allergy Relief] 50 mcg/actuation spray,suspension 1 spray INTRANASAL DAILY RF: 0 mecobalamin (vitamin B12) 1,000 mcg tablet,chewable 1,000 mcg PO DAILY RF: 0 latanoprost 1 DROP bottle 1 drp EACH EYE QHS RF: 0 metformin 500 MG tablet 500 mg PO BID RF: 0 aspirin 81 MG tablet,chewable 81 mg PO DAILY@2000 RF: 0 brimonidine-timolol 1 DROP bottle 1 drp ophthalmic (eye) BID RF: 0 levothyroxine 75 mcg tablet 75 mcg PO DAILY RF: 0 nitrofurantoin monohyd/m-cryst 100 mg capsule 100 mg PO BID RF: 0 hydralazine 50 mg tablet 50 mg PO TID RF: 0 pravastatin 40 mg tablet 40 mg PO QHS Qty: 90 RF: 3 isosorbide mononitrate 60 mg tablet extended release 24 hr 60 mg PO BID Qty: 180 RF: 3 hydrochlorothiazide 25 mg tablet 25 mg PO DAILY Qty: 90 RF: 3 potassium chloride 20 mEq tablet,ER particles/crystals 20 meq PO BID Qty: 180 RF: 3 clopidogrel 75 mg tablet 75 mg PO DAILY Qty: 90 RF: 3 nitroglycerin 0.4 mg tablet, sublingual 0.4 mg SUBLINGUAL Q5-15M PRN (Reason: chest pain) Qty: 25 RF: 3 losartan 50 mg tablet 50 mg PO BID Qty: 180 RF: 3 metoprolol succinate 25 mg tablet extended release 24 hr 25 mg PO DAILY Qty: 90 RF: 4 Referrals / Follow Up: Chris Fournier DO [Primary Care Provider] - Disposition Disposition (needs filled in before D/C Order can be placed): Acute Care Hospital Charges/Coding Visit Charges Inpatient E&M: 35169 Disch Hosp
[2020-10-29] MEDS: Nitroglycerin Infusion 250 ML 54 MG CONT INF ×2 (13:49→18:33)
[2020-10-29] MEDS: ALPRAZolam 0.25 MG Tablet PO (14:59)
[2020-10-29 15:35] LABS: Partial Thromboplast Time 45.6 Seconds (24.1-36.2)
[2020-10-29] MEDS: Heparin Injection (Vial) 5,000 UNIT/ML VIAL IV (16:04)
--- NOTE | 2020-10-29 16:53 | CHAPLAIN ---
Type of Pastoral Visit _x__ Initial Visit ___ Follow-up Visit ___ On-call Visit ___ General Patient Visit ___ Spiritual Assessment ___ Family Conference ___ Bereavement ___ Rapid Response ___ Code Blue ___ Other (describe below) Pastoral Care Referral From _x__ Patient ___ Family ___ Nurse ___ Physician ___ Technical Architect ___ Systems Programmer ___ Other (describe below) Sacrament/Intervention _x__ Active listening ___ Anointing ___ Catholic ___ Bereavement ___ Communion ___ Prema exploration ___ ___ Life review _x__ Prayer ___ Reconciliation ___ Sacrament of Sick _x__ Supportive presence ___ Wedding ___ Other (describe below) Pastoral Comments
--- NOTE | 2020-10-29 17:02 | NURSING ---
Pt with increased agitation throughout day d/t hospitalization, waiting for transfer, and inability to ambulate or reposition self as desired along with increased confusion, restlessness and inability to be directed by this RN. Pt found to be sitting up several times greater than 30 degrees in bed, attempted to reach for objects on the floor which were not there regardless of redirection and explanations of the situation. Pt also hallucinating at times stating what's that cat doing in the window and my son brought me chili over there pointing to the sink. Pt continued to tell [facility] staff that she heard her children out in the [place] and that Antwan's out there cooking chili. Again reoriented pt to situation, allowed her to view the temporary pacemaker device in her groin and explained the risks of not following directions for her care. Pt continued to escalate. Daughter Bebo updated several times throughout the day regarding the fact that we were waiting on [facility] to call us to give us a bed assignment and that her mother was becoming more agitated as the day went on. As the pt layed in bed, she constantly was calling several family members on the phone, texting and becoming more agitated regarding family dynamics as well saying that she was aggravated that her children don't get along and that she was going to call Bebo...she can get through to the boys better...I just get angry and yell. Apologized to pt several times about the delay of the process and general situation without effect. Pt repositioned frequently throughout the day to use the bedpan. Pt related to this RN that she was anxious about the transfer, which was why she had frequent diarrhea and restlessness. Pt assisted to talk on her personal cell phone once bed assignment received while this RN in the room and pt ended up talking to Bebo on the phone and allowing her and the pt's son Antwan to come in to comfort the pt. Once family at bedside, pt was expressing dissatisfaction with this RN telling her family, she is meaner than hell! Again explained to the pt that I had been trying to keep her safe all day and explain what was going on in order to calm anxiety about the situation. Pt short with this RN and disgruntled regardless.
--- NOTE | 2020-10-29 20:00 | NURSING ---
Patient left with [facility] transport, family was in room while patient was getting ready for transport.
[2020-10-29 23:50] LABS: Prothrombin Time (Protime)PT. 14.7 SECONDS (11.7-14.9)
== END 2020-10-29 20:00 | disposition short-term general hospital (02) | DRG 262 ==
LOC: ED 16:59 → ICU 10-29 07:23
PROVIDERS: Internal Medicine Interventional Cardiology; Admitting Provider Family Medicine; Emergency Provider Emergency Medicine; PCP Student in an Organized Health Care Education/Training Program; Visit Provider Internal Medicine
DX: I44.2 Atrioventricular block, complete (principal); R00.1 Bradycardia, unspecified; I10 Essential (primary) hypertension; E11.9 Type 2 diabetes mellitus without complications; I25.10 Atherosclerotic heart disease of native coronary artery without angina pectoris; E78.5 Hyperlipidemia, unspecified; E03.9 Hypothyroidism, unspecified; I25.2 Old myocardial infarction; Z79.899 Other long term (current) drug therapy; Z79.82 Long term (current) use of aspirin; Z79.84 Long term (current) use of oral hypoglycemic drugs; Z79.02 Long term (current) use of antithrombotics/antiplatelets
CPT/HCPCS: 33210; 71045; 80048; 82962; 83735; 83880; 84100; 84484; 85025; 85610; 85730; 87426; 87493; 93005; 93308; 99285; J7040; Q9957; A4216; C1894; J3490

== ENCOUNTER → 2020-11-06 14:17 | Outpatient (CLI) | payer MEDICARE, OTHER, SELFPAY ==
[2020-11-06 13:03] VITALS: BMI 24.3
--- NOTE | 2020-11-06 14:20 | VDUE_ITS ---
Reason For Study: LUE SWELLING/EDEMA Left Proximal Left jugular vein is spontaneous, widely patent, phasic, with no intraluminal echogenicity noted. Left subclavian vein is spontaneous, widely patent, phasic, with no intraluminal echogenicity noted. Left Arm Left axillary vein is spontaneous, patent, phasic, competent, compressible and demonstrates augmentation. Left brachial vein is compressible. Left cephalic vein is compressible. Left basilic vein is compressible. Left Lower Arm Left radial vein is compressible. Left ulnar vein is compressible. Patient Safety Left voicemal on RN line @ [facility] @ 3:05pm. VL/Venous Duplex US, Unilateral Interpretation Summary No evidence for acute deep venous thrombosis[left] upper extremity with patent and compressible cephalic and basilic veins. Ordering Physician: Hernandez Cavazos Referring Physician: Chris Fournier Performed By: Jennifer Pineda RDCS, RVT ?
== END ==
PROVIDERS: PCP Student in an Organized Health Care Education/Training Program; Referring Provider Internal Medicine Cardiovascular Disease; Visit Provider Internal Medicine Cardiovascular Disease
DX: R60.0 Localized edema (principal); Z95.0 Presence of cardiac pacemaker
CPT/HCPCS: 93971

== ENCOUNTER → 2021-03-14 09:42 | Outpatient (CLI) | payer MEDICARE, OTHER, SELFPAY ==
--- NOTE | 2021-03-14 09:48 | CDU_ITS ---
Reason For Study: DIZZINESS Rt. Velocities/BP Lt. Velocities/BP Prox CCA 73.8/9.9 cm/sec. Prox CCA 100.3/14.4 cm/sec. Mid CCA 62.1/15.1 cm/sec. Mid CCA 69.2/18.1 cm/sec. Dist CCA 52.9/13.8 cm/sec. Dist CCA 58.3/14.4 cm/sec. Prox ICA 164.7/40.4 cm/sec. Prox ICA 157.8/37.1 cm/sec. Mid ICA 157.7/36.0 cm/sec. Mid ICA 131.4/39.3 cm/sec. Dist ICA 131.8/33.4 cm/sec. Dist ICA 97.9/29.3 cm/sec. Rt. ICA/CCA = 2.65. Lt. ICA/CCA = 2.28. Prox ECA 82.9/6.0 cm/sec. Prox ECA 107.6/12.6 cm/sec. Rt. Vert. 47.3/18.1 cm/sec. Lt. Vert. 59.5/15.7 cm/sec. Right Extracranial There is homogeneous, smooth atherosclerotic plaque noted in the right common carotid artery. There is heterogeneous, irregular atherosclerotic plaque noted in the right internal carotid artery. There is heterogeneous, irregular atherosclerotic plaque noted in the right external carotid artery. Antegrade flow is noted in the right vertebral artery. There is heterogeneous, irregular atherosclerotic plaque noted in the right bulb. Left Extracranial There is homogeneous, smooth atherosclerotic plaque noted in the left common carotid artery. There is heterogeneous, irregular atherosclerotic plaque noted in the left internal carotid artery. There is heterogeneous, irregular atherosclerotic plaque noted in the left external carotid artery. Antegrade flow is noted in the left vertebral artery. Procedure Carotid Duplex [id number]. Exam performed in department. VL/Carotid Duplex Ultrasound Interpretation Summary Irregular calcific plaque at the proximal right internal carotid with 50 to 69% stenosis. Less than 50% stenosis right external carotid artery Irregular calcific plaque of the proximal left internal carotid artery with 50 to 69% stenosis Less than 50% stenosis left external carotid artery Patent and antegrade vertebral arteries bilaterally Ordering Physician: Norma Menchaca Referring Physician: CASSIDY GAVIN Performed By: Zeina Alston, JERRY, RVT
== END ==
PROVIDERS: PCP Student in an Organized Health Care Education/Training Program; Referring Provider Surgery; Visit Provider Surgery
DX: R42 Dizziness and giddiness (principal)
CPT/HCPCS: 93880

== ENCOUNTER → 2021-08-18 | Outpatient (CLI) | payer MEDICARE, OTHER, SELFPAY ==
--- NOTE | 2021-08-18 08:55 | RDU_ITS ---
Reason For Study: HTN Right Renal Artery Left Renal Artery Right renal artery ostium 77/24 Left renal artery ostium 82/13 RSV/EDV. PSV/EDV. Right renal artery proximal 73/12 Left renal artery proximal PSV/EDV PSV/EDV. 88/10 . Right renal artery mid 82/16 Left renal artery mid 82/14 PSV/EDV. PSV/EDV . Right renal artery distal 122/17 Left renal artery distal 82/13 PSV/EDV. PSV/EDV. Right RAR 1.42. Left RAR 1.02. Right Renal Parenchyma Left Renal Parenchyma Upper Pole Medula 23/7 PSV/EDV. Left upper pole medulla 28/6 Right upper pole medulla EDR 0.30 . PSV/EDV . Right upper pole medulla R.I. Left upper pole medulla EDR 0.2 . 0.68 . Left upper pole medulla R.I. 0.79 . Upper [place] Cortx 33/7 PSV/EDV. UP Cortex 31/5 PSV/EDV. Right upper pole cortex EDR 0.2 . Left upper pole cortex EDR 0.20 . Right upper pole cortex R.I. 0.78 . Left upper pole cortex R.I. 0.82 . Right lower Pole medulla 28/6 Left lower Pole medulla 25/5 PSV/EDV . PSV/EDV . Right lower pole medulla EDR 0.20 . Left lower pole medulla EDR 0.2 . Right lower pole medulla R.I. Left lower pole medulla R.I. 0.78 . 0.81 . Lower Pole Cortx 27/5 PSV/EDV. Lower Pole Cortex 40/7 PSV/EDV. Left lower pole cortex EDR 0.2 . Right lower pole cortex EDR 0.20 . Left lower pole cortex R.I. 0.82 . Right lower pole cortex R.I. 0.82 . Left Renal Hilar Right Renal Hilar LT Hilar avg 69/11 PSV/EDV . Right Hilar avg 77/11 PSV/EDV. Left hilar acceleration time 40 Right hilar acceleration time 50 m/sec. m/sec. Left Renal Dimensions Right Renal Dimensions Left kidney size 10.33 cm . Right kidney size 9.37 cm . Left cortical dimension 1.19 cm . Right cortical dimension 1.36 cm . Aorta Proximal abdominal aorta 2.00cm x 2.02 cm . Proximal abdominal aorta peak systolic velocity is 86 cm/sec . Distal abdominal aorta 1.80cm x 1.64 cm . Distal abdominal aorta peak systolic velocity is 117 cm/sec . VL/Renal Artery Duplex Ultrasound Interpretation Summary Maximal aortic diameter 2 x 2.02 cm proximally. Less than 60% stenosis right renal artery Maintained right renal length 9.37 cm Less than 60% stenosis left renal artery Maintained left renal length of 10.33 cm Ordering Physician: Norma Menchaca Referring Physician: Chris Fournier Performed By: Paulina Butt, JERRY, RVT
== END | disposition home or self-care (01) ==
LOC: CVS 08:54
PROVIDERS: PCP Student in an Organized Health Care Education/Training Program; Referring Provider Nurse Practitioner Gerontology; Visit Provider Nurse Practitioner Gerontology
DX: I10 Essential (primary) hypertension (principal)
CPT/HCPCS: 93975

== ENCOUNTER → 2021-09-15 | Outpatient (CLI) | payer MEDICARE, OTHER, SELFPAY | END | disposition home or self-care (01) | LOC: CVS 13:30 | PROVIDERS: PCP Student in an Organized Health Care Education/Training Program; Referring Provider Nurse Practitioner Gerontology; Visit Provider Nurse Practitioner Gerontology | DX: I10 Essential (primary) hypertension (principal) | CPT/HCPCS: 93788 ==

== ENCOUNTER 2022-01-11 19:59 | Emergency (ER) | payer MEDICARE, OTHER, SELFPAY ==
[2022-01-11 20:01] VITALS: BP 203/99; PULSE 98; RESP 16; TEMP 37.2; O2SAT 99; BMI 22.6
--- NOTE | 2022-01-11 20:25 | EX.ED.DYSGE1 ---
HPI History of Present Illness Chief Complaint: General Illness Informant: patient and family Narrative Narrative: Patient has had a cough for about a month, but the congestion and dyspnea became worse almost 1 week ago. She has intermittent chest pain chronically, that has been occurring as well but not necessarily more frequently or more severe than usual. She takes a nitro on occasion for that which she has done today. She was seen as an outpatient by a nurse practitioner for her primary care last week after the daughter, with whom she moved in a couple months ago, did a COVID test and it was negative. An outpatient chest x-ray was obtained, the daughter showed me the result which was basically interstitial infiltrate versus edema. She was placed on Levaquin 500 mg for 10 days; she has had 4 days of that and is not feeling any better. Daughter states she can only walk short distance earlier in the day without having to stop because of dyspnea, and tonight she is too weak to get up easily on her own and needs a significant amount of assistance in order to do so. She has developed no fevers in the past month. She has had no leg edema. Daughter is a good historian but does not know a lot about her past medical history except that she had a small heart attack in the past, has a pacemaker, had Takotsubo cardiomyopathy, and currently does have a diagnosis of congestive heart failure but she does not know anything else about it's status. 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) Bradycardia Chest pain Complete heart block Diabetes mellitus, type II Essential hypertension HLD (hyperlipidemia) Hypothyroidism Non-STEMI (non-ST elevated myocardial infarction) (03/21/18) Presence of permanent cardiac pacemaker (~11/01/20) Takotsubo cardiomyopathy (03/21/18) Home Medications aspirin 81 mg chewable tablet 81 mg PO DAILY@1999 [facility] 03/12/19 [History Last Taken 10/27/20] brimonidine 0.2 %-timolol 0.5 % eye drops 1 drp ophthalmic (eye) BID eye health 03/12/19 [History Last Taken 10/28/20] latanoprost 0.005 % eye drops 1 drp EACH EYE Q eye health 03/12/19 [History Last Taken 10/27/20] fluticasone propionate 50 mcg/actuation nasal spray,suspension (Flonase Allergy Relief) 1 spray intranasal DAILY SINUS 04/27/19 [History Last Taken Unknown] mecobalamin (vitamin B12) 1,000 mcg chewable tablet 1,000 mcg PO DAILY SUPPLEMENT 06/07/20 [History Last Taken 10/28/20] levothyroxine 75 mcg tablet 50 mcg PO DAILY THYROID 10/28/20 [History Last Taken 10/28/20] cholecalciferol (vitamin D3) 50 mcg (2,000 unit) tablet 50 mcg PO DAILY 11/06/20 [History Last Taken Unknown] metformin 500 mg tablet 500 mg PO DAILY diabetes 12/30/20 [History Last Taken Unknown] pravastatin 40 mg tablet 40 mg PO QHS cholesterol #90 tabs 01/13/21 [Rx Last Taken Unknown] hydrochlorothiazide 25 mg tablet 25 mg PO DAILY diuretic #90 tabs 04/01/21 [Rx Last Taken Unknown] clopidogrel 75 mg tablet 75 mg PO DAILY anti platelet #90 tabs 05/28/21 [Rx Last Taken Unknown] potassium chloride 20 mEq tablet,extended release(part/cryst) 20 meq PO BID supplement #180 tabs 05/28/21 [Rx Last Taken Unknown] hydralazine 100 mg tablet 100 mg PO TID #270 tabs 08/01/21 [Rx Last Taken Unknown] losartan 50 mg tablet 50 mg PO BID blood pressure #180 tabs 08/01/21 [Rx Last Taken Unknown] isosorbide mononitrate 60 mg tablet,extended release 24 hr 60 mg PO BID heart #180 tabs 10/29/21 [Rx Last Taken Unknown] nitroglycerin 0.4 mg sublingual tablet 0.4 mg sublingual Q5-15M PRN chest pain #25 tabs 12/22/21 [Rx Last Taken Unknown] Allergy/AdvReac Type Severity Reaction Status Date / Time amlodipine besylate Allergy Rash Verified 01/11/22 20:00 [From Norvasc] cephalexin monohydrate Allergy Hives Verified 01/11/22 20:00 [From Keflex] streptomycin [Streptomycin] Allergy Hives Verified 01/11/22 20:00 Sulfa (Sulfonamide Allergy Hives Verified 01/11/22 20:00 Antibiotics) Family History Father Heart disease Mother Breast cancer Sister Heart disease Surgical History History of cataract extraction History of cholecystectomy History of hysterectomy History of lumpectomy of left breast Social History Smoking Status: Never smoker alcohol intake: current alcohol intake frequency: holidays/special occasions only Alcohol type: wine caffeine: Yes Type: coffee Number of servings: 4 ROS ROS ED Review of Systems ROS Unobtainable: other Details: very hard of hearing Constitutional Constitutional ED: Reports malaise and weakness; Denies chills or fever(s) ENT ENT ED: Reports nasal congestion Cardiovascular Cardiovascular: Reports chest pain and orthopnea; Denies palpitations Respiratory/Chest Respiratory/Chest: Reports cough, dyspnea, dyspnea on exertion, orthopnea and sputum Gastrointestinal Gastrointestinal: Reports abdominal pain; Denies diarrhea, nausea or vomiting Musculoskeletal Musculoskeletal: Denies back pain or neck pain Integumentary Denies abscess or rash Neurologic Neurologic: Denies headache(s), paresthesias or weakness Psychiatric Psychiatric: Denies anxiety or suicidal thoughts EXAM Physical Exam Const Vital Signs: 01/11/22 20:01 01/11/22 20:34 01/11/22 20:34 Temperature 98.9 F Temperature Source Temporal Pulse Rate 98 Respiratory Rate 16 Respiratory Pattern Normal Blood Pressure 203/99 H 127/69 H Blood Pressure Mean 133 88 Pulse Ox 99 Oxygen Delivery Method Room Air 01/11/22 22:49 01/11/22 22:50 Temperature Temperature Source Pulse Rate 77 Respiratory Rate 18 Respiratory Pattern Blood Pressure 127/89 H 127/89 H Blood Pressure Mean 101 101 Pulse Ox 97 Oxygen Delivery Method Room Air Positive well nourished and well developed General Appearance ED: well developed and NAD HEENT Reports moist mucous membranes normocephalic and atraumatic Eyes PERRL and EOMs intact bilaterally Neck full ROM and supple Resp normal respiratory effort and clear to auscultation bilaterally Cardio regular rate and regular rhythm Heart Sounds: murmur systolic I/ GI non-tender and non-distended Auscultation: normoactive bowel sounds Palpation: soft Back/Spine no CVA tenderness General Back: other FROM Extremity normal to inspection General Extremety ED: Negative for edema, pulses abnormal or tenderness General Extremity: Negative for edema or pulses abnormal Neuro CN's II-XII intact bilaterally and no sensory deficits noted Sensorium / Orientation: awake, alert and orientation impaired Motor Exam: strength 5/5 throughout Skin no rashes or lesions noted and no wounds MDM MDM MDM Narrative Medical decision making narrative: With the patient's cough and dyspnea as well as some orthopnea, infectious etiologies are in the differential in addition to primary cardiac etiologies, pulmonary hypertension, pleural effusions, and this is not an exclusive list. Her EKG is showing paced rhythm no acute injury pattern, her cardiac tests are otherwise unremarkable with a BNP that is only 110. Her lungs are clear, her chest x-ray shows no infiltrates or interstitial abnormalities like her last x-ray last week showed according to her records at [facility]. Initially her blood pressure was 203/99 suggesting possible heart failure involvement, but without treating anything on recheck it is 127/89. She appears pretty well clinically. She has no edema in her legs. We got her up to walk her and she walked down the [place] with minimal dyspnea and did not become even close to hypoxic. The patient does not want to stay in the hospital and wants to go home. Daughter is okay taking her home, she states she and her significant other can help her if she needs help getting out of the chair or better what ever. I think it be reasonable to treat her as bronchitis, she was placed on Levaquin 500 mg for 10 days, there is no indication for that. I recommend stopping it after 7 to minimize her risk of tendon rupture. Patient has an appointment with her PCP tomorrow which I advised keeping for recheck. Lab Data Attestation: I reviewed the patient's lab results. Labs: Laboratory Results - last 24 hr 01/11/22 01/11/22 01/11/22 20:26 21:00 21:00 WBC 6.6 RBC 3.97 L Hgb 12.3 Hct 36.0 L MCV 90.7 MCH 31.0 MCHC 34.2 RDW Std Deviation 41.0 RDW Coeff of Johan 12.3 Plt Count 377 MPV 9.2 Immature Gran % (Auto) 0.300 Neut % (Auto) 45.4 L Lymph % (Auto) 41.6 H Lanier % (Auto) 12.0 H Eos % (Auto) 0.5 Baso % (Auto) 0.2 Absolute Neuts (auto) 3.0 Absolute Lymphs (auto) 2.73 Nucleated RBC % 0 Sodium 137 Potassium 3.3 L Chloride 105 Carbon Dioxide 20.0 L Anion Gap 12 BUN 20 H Creatinine 0.87 Estim Creat Clear Calc 37.69 Est GFR (MDRD) Af Amer 80 Est GFR (MDRD) Non-Af 66 BUN/Creatinine Ratio 23.1 H Glucose 146 H Calcium 9.2 Total Bilirubin 0.50 AST 12 L ALT 15 Alkaline Phosphatase 43 L Troponin I High Sens 26 B-Natriuretic Peptide 110.9 H Total Protein 7.5 Albumin 3.2 Globulin 4.3 H Albumin/Globulin Ratio 0.7 L Radiography Chest X-Ray - ED: 2 View, Read by ED Physician, Cardiomegaly and No Infiltrates Diagnostic Testing: Clinical Impression(s) from Imaging Studies Chest X-Ray 01/11/22 21:42 IMPRESSION: No acute cardiopulmonary disease or major interval change. Electronically Signed: Kye Abraham DO at 21:56 EDT Reading Location ID and State: [address] [place] [address] Tel [phone], Service support , Rhythm Strip Rhythm Strip: Ventricular pacing Rate: 70 Ectopy: None EKG Initial EKG: Attestation: I personally reviewed and interpreted this EKG as follows: Interpretation: No Acute Injury Pattern, Paced and LBBB Prior EKG tracings: available for review Prior: Unchanged Discharge Plan Triage Chief Complaint: General Illness ED Provider: Gene Omer Dx/Rx/DC Orders Clinical Impression: Acute bronchitis, JARVIS (dyspnea on exertion) Instructions: Acute Bronchitis Prescriptions: No Action fluticasone propionate [Flonase Allergy Relief] 50 mcg/actuation spray,suspension 1 spray INTRANASAL DAILY Rx Instructions: administer into each nostril mecobalamin (vitamin B12) 1,000 mcg tablet,chewable 1,000 mcg PO DAILY cholecalciferol (vitamin D3) 50 mcg (2,000 unit) tablet 50 mcg PO DAILY losartan 50 mg tablet 50 mg PO BID Qty: 180 3RF hydralazine 100 mg tablet 100 mg PO TID Qty: 270 3RF latanoprost 1 DROP bottle 1 drp EACH EYE QHS aspirin 81 MG tablet,chewable 81 mg PO DAILY@1999 brimonidine-timolol 1 DROP bottle 1 drp ophthalmic (eye) BID metformin 500 mg tablet 500 mg PO DAILY levothyroxine 75 mcg tablet 50 mcg PO DAILY Label Comments: TAKE 1 TABLET BY MOUTH EVERY DAY pravastatin 40 mg tablet 40 mg PO QHS Qty: 90 3RF hydrochlorothiazide 25 mg tablet 25 mg PO DAILY Qty: 90 3RF potassium chloride 20 mEq tablet,ER particles/crystals 20 meq PO BID Qty: 180 3RF clopidogrel 75 mg tablet 75 mg PO DAILY Qty: 90 3RF isosorbide mononitrate 60 mg tablet extended release 24 hr 60 mg PO BID Qty: 180 3RF nitroglycerin 0.4 mg tablet, sublingual 0.4 mg SUBLINGUAL Q5-15M PRN (Reason: chest pain) Qty: 25 3RF Rx Instructions: until response; do not exceed 3 doses per episode Primary Care Provider: Chris Fournier Referrals: Chris Fournier DO [Primary Care Provider] - Keep Alessandra appointment Activity Restrictions/Additional Instructions: Take the Levaquin/levofloxacin for a total of 7 days only, not 10. Disposition Disposition: Home, Self Care
--- NOTE | 2022-01-11 20:26 | EKG12_ITS ---
Test Reason : Blood Pressure : / mmHG Vent. Rate : 072 BPM Atrial Rate : 071 BPM P-R Int : 000 ms QRS Dur : 156 ms QT Int : 442 ms P-R-T Axes : 106 -57 111 degrees QTc Int : 483 ms Ventricular-paced rhythm Abnormal ECG Confirmed by RANI RIVAS, DAVID ([id number]), writer editor KENYA CUMMINS ([id number]) on 01/13/2022 8:23:17 AM Referred By: Confirmed By:DAVID SARAVIA MD
[2022-01-11 20:34] VITALS: BP 127/69
[2022-01-11] MEDS: Albuterol 2.5 MG/3 ML VIAL.NEB. INHALATION (20:38)
--- NOTE | 2022-01-11 21:03 | ED.RN ---
unable to obtain labs, lab called and will be up to e.d. to obtain labs.
[2022-01-11 21:06] LABS: Absolute Lymphocyte Count 2.73 X10^3/uL (0.83-4.51); Basophil# 0.01 X10^3/uL; Basophil% 0.2 % (0-1); Eosinophil# 0.03 X10^3/uL; Eosinophils% 0.5 % (0-5); Hemoglobin 12.3 g/dL (12.0-15.0); Lymphocyte # 2.73 X10^3/ul (0.83-4.51); Lymphocyte % 41.6 % (19-41); Mean Corp Hgb Conc 34.2 g/dL (32-36); Mean Corpuscular Volume 90.7 fL (81-99); Mean Platelet Vol. 9.2 fl (6.2-12.0); Monocyte# 0.79 X10^3/uL; NRBC Flagged by Analyzer 0 % (0-5); Neutrophil # 2.99 X10^3/uL (2.7-7.7); Neutrophil % 45.4 % (47-70); Platelet Count 377 K/mm3 (150-450); RBC Distribution Width CV 12.3 % (11.6-14.6); Red Blood Count 3.97 M/mm3 (4.2-5.4); White Blood Count 6.6 K/mm3 (4.4-11.0)
[2022-01-11 21:26] LABS: BNP,B-Type NATRIURETIC PEPTIDE 110.9 pg/mL (0-100)
[2022-01-11 21:34] LABS: ALB/GLOB Ratio 0.7 RATIO (0.9-2.4); AST(SGOT) 12 U/L (15-37); Alanine Aminotransfer ALT/SGPT 15 U/L (13-56); Albumin, Serum 3.2 g/dL (3.2-5.0); Alkaline Phosphatase 43 U/L (45-117); Anion Gap 12 (5-15); BUN 20 mg/dL (7-18); BUN/Creat Ratio 23.1 RATIO (10-20); Calcium,Total 9.2 mg/dL (8.5-10.1); Chloride 105 mmol/L (98-107); Creatinine, Serum 0.87 mg/dL (0.55-1.02); EST Glomerular Filtration Rate 66 mL/min (>60); Est Glom Filt Rate - Afr Amer 80 mL/min (>60); Estimated Creatinine Clearance 37.69 ml/min; Globulin 4.3 g/dL (2.2-4.2); Glucose 146 mg/dL (74-106); Potassium 3.3 mmol/L (3.5-5.1); Protein, Total 7.5 g/dL (6.4-8.2); Sodium Level 137 mmol/L (136-145); Troponin-I HS 26 pg/mL (3.0-54.0)
--- NOTE | 2022-01-11 21:42 | RAD_ITS ---
STUDY: X-RAY CHEST REASON FOR EXAM: Female, 86 years old. Cough. Shortness of breath. Chest pain. Diagnosed by primary care physician on January 07 with pneumonia and started on LEVAQUIN and PREDNISONE. No improvement. TECHNIQUE: PA and lateral views of the chest. COMPARISON: 10/28/2021. FINDINGS: The lungs are clear and expanded. There is no demonstrated pleural abnormality. Normal size heart. Stable cardiac pacemaker. Normal mediastinum and olayinka. Normal visualized pulmonary arteries. Normal visualized aortic arch and descending thoracic aorta. No osseous changes. Again seen are surgical clips in the left axilla. There is no demonstrated abnormality of the visualized soft tissue structures of the upper abdomen. RAD/Chest PA and Lateral IMPRESSION: No acute cardiopulmonary disease or major interval change. Electronically Signed: Kye Abraham DO at 21:56 EDT ,
[2022-01-11 22:49] VITALS: BP 127/89
[2022-01-11 22:50] VITALS: BP 127/89; PULSE 77; RESP 18; O2SAT 97
[2022-01-11 22:54] VITALS: O2SAT 97
[2022-01-11 23:32] VITALS: BP 127/89; PULSE 77; RESP 18; O2SAT 97
== END 2022-01-11 23:33 | disposition home or self-care (01) ==
PROVIDERS: Emergency Provider Emergency Medicine; PCP Student in an Organized Health Care Education/Training Program; Visit Provider Emergency Medicine
DX: J20.9 Acute bronchitis, unspecified (principal); E11.9 Type 2 diabetes mellitus without complications; R06.09 Other forms of dyspnea; E78.5 Hyperlipidemia, unspecified; I10 Essential (primary) hypertension; I25.10 Atherosclerotic heart disease of native coronary artery without angina pectoris; I25.2 Old myocardial infarction; E03.9 Hypothyroidism, unspecified; Z95.0 Presence of cardiac pacemaker; Z79.82 Long term (current) use of aspirin; Z79.899 Other long term (current) drug therapy; Z79.84 Long term (current) use of oral hypoglycemic drugs
CPT/HCPCS: 36415; 71046; 80053; 83880; 84484; 85025; 87428; 93005; 99283; J7030